=== PATIENT | female | born 1960 | race African-American/Black ===

== ENCOUNTER → 2018-09-06 | Day surgery (SDC) | payer OTHER ==
--- OUTSIDE RECORDS SUMMARY | 2018-09-06 09:33 | XMS REPORT ---
:1960 [facility] Address [address] [place] [address] Dr. Drake [address] [place] [id number] Care Team Providers Name Role Phone Unavailable Unavailable Unavailable Problems This patient has no known problems. Allergies, Adverse Reactions, Alerts This patient has no known allergies or adverse reactions. Medications This patient has no known medications.
--- OUTSIDE RECORDS SUMMARY | 2018-09-06 09:48 | XMS REPORT ---
:1960 [facility] Address [address] [place] [address] Dr. Drake [address] [place] [id number] Care Team Providers Name Role Phone Unavailable Unavailable Unavailable Problems This patient has no known problems. Allergies, Adverse Reactions, Alerts This patient has no known allergies or adverse reactions. Medications This patient has no known medications.
--- NOTE | 2018-09-06 11:20 | RAD REPORT ---
EXAM DESCRIPTION: US - BREAST/AXILLA, LIMITED - 09/06/2018 10:32 am CLINICAL HISTORY: N63.21 COMPARISON: BREAST UNI MARNIE dated 04/10/2012; MAMMO DIGITAL UNILATERAL /FU dated 04/10/2012; MAMMO DIGI LEE SCR BILAT W CAD dated 03/21/2012 Outside [facility] mammograms were reviewed. FINDINGS: The patient was initially referred for ultrasound-guided core biopsy of an outside detecte d 4 mm upper-outer quadrant left breast lesion. Despite prolonged sonography, no correlate suspicious lesion could be found. Thus, ultrasound-guided core biopsy could not be performed at this time. Mild ductal ectasia was noted in the upper-outer adrienne drant of the left breast. IMPRESSION: No sonographic suspicious correlate lesion could be detected in the upper-outer quadrant left breast at this time. Mild ductal ectasia was noted in the upper outer left breast. Because of t hese sonography findings, ultrasound-guided core biopsy was deferred. This was explained to the patie nt in detail. Annual bilateral screening mammography is recommended. BI-RAD: 2 ResultCode: B Category Diagnosis 0 = Incomplete: Needs Additional Imaging Evaluation, 1 = Negative, 2 = Benign, 3 = Probably Benign, 4 = Suspicious Abnormality, 5 = Highly Suspicious of Malignancy, 6 = Known Biop sy Proven Malignancy.
== END | disposition home or self-care (01) ==
LOC: DS 09:30
PROVIDERS: ATTEND Surgery
DX: N63.21 Unspecified lump in the left breast, upper outer quadrant (principal); Z53.8 Procedure and treatment not carried out for other reasons
CPT/HCPCS: 76642

== ENCOUNTER 2021-12-25 13:24 | Emergency (ER) | payer OTHER ==
--- OUTSIDE RECORDS SUMMARY | 2021-12-25 13:36 | XMS REPORT | Continuity of Care Document ---
:1960 Author Organization [facility] t Address [address] [place] [address] Dr. Alfonso. [address] [place] [address] Care Team Providers Name Role Phone ryanjessy Primary Care Physician Rashad BOTELLO Attending Clinician Unavailable Rashad Botello DO Attending Clinician Doctor Unassigned, Name Attending Clinician Unavailable Ke CALLES Attending Clinician Unavailable Saeid AREC Attending Clinician Unavailable Tasneem Pelaez MD Attending Clinician Nathaniel Doan MD, J Attending Clinician Rashard Cosby MD Attending Clinician Soniya Jean MD Attending Clinician Saeid Arce MD Attending Clinician Favian Ruelas MD Attending Clinician Pako PUENTE Attending Clinician Juan Antonio PUENTE Attending Clinician Radiology Attending Clinician Unavailable Rashad BOTELLO Admitting Clinician Unavailable José ARMSTRONG JR Admitting Clinician Unavailable Alea PUENTE, Rashard Admitting Clinician Payers Payer Name Policy Type Policy Number Effective Date Expiration Date Tasneem CUELLAR/[facility] DUAL [id number] 2021 00:00:00 COMP HMO D SNP [facility] [place] STAR [id number] 2019 00:00:00 PLUS Problems Condition Condition Condition Status Onset Resolution Last Treating Co mments Source Name Details Category Date Date Treatment Clinician Date Rectal Rectal Disease Active Univers bleed bleed 3-12 ity of 00:00: [address] Otalgia Otalgia Disease Active 2014-08 Univers 2-21 ity of 00:00: [address] 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 rs rhinitis rhinitis 2-21 ity of 00:00: [address] Essential Essential Disease Active 2014-08 Uni vers hypertensi hypertensi 2-21 it y of on on 00:00: [address] Hyperlipid Hyperlipid Disease Active 2014-08 U nivers emia emia 2-21 ity of 00:00: [address] Osteoarthr Osteoarthr Disease Active 2014-08 U nivers itis itis 2- ity of 00:00: [address] Chronic Chronic Disease Active 2014-08 Univers kidney kidney 2- ity of disease disease 00:00: [address] Allergies, Adverse Reactions, Alerts Allergy Allergy Status Severity Reaction(s) Onset Inactive Treating Comm ents Source Name Type Date Date Clinician NO KNOWN Drug Active Univers ALLERGIE Class ity of S [facility] [place] [facility] Family History Family Member Diagnosis Comments Start Date Stop Date Source Natural father Cancer [facility] Natural father Diabetes [facility] Natural father Heart [facility] Natural mother Cancer [facility] Natural mother Diabetes [facility] Natural mother Heart [facility] Social History Social Habit Start Date Stop Date Quantity Comments Source Exposure to Not sure [facility] SARS-CoV-2 [facility] (event) [place] Alcohol intake 2021-11-10 2021-11-10 .43 /d University of 00:00:00 00:00:00 [facility] [place] [facility] Tobacco Comment 2015-08-17 2015-08-17 3 cans per week Univ ersity of 00:00:00 00:00:00 [facility] [place] [facility] Tobacco use and 2015-05-08 2015-05-08 Never used Universit y of exposure 00:00:00 00:00:00 [facility] [place] [facility] Sex [birth year] Universit y of 00:00:00 00:00:00 [facility] [place] [facility] Smoking Status Start Date Stop Date Source Never smoker [facility] Medications Ordered Filled Start Stop Current Ordering Indication Dosage Frequency Signature Comments Components Source Medication Medication Date Date Medication? Clinician (SIG) Name Name sennosides 2021-0 Yes 8.6mg 8.6 mg, Uni vers (SENOKOT) - Oral, ity of tablet 8.6 14:00: DAILY, [place] mg 00 First dose Medical on Mon11/16/21 at 0900, Until Discontinu ed, Routine sennosides 2021-0 Yes 8.6mg 8.6 mg, Uni vers (SENOKOT) 11-16 Oral, ity of tablet 8.6 14:00: DAILY, [place] mg 00 First dose Medical on Mon11/16/21 at 0900, Until Discontinu ed, Routine polyethylen 2021-0 Yes 17g 17 g, Unive rs e glycol 3-21 Oral, BID, ity o f 3350 powder 14:15: First dose [place] 17 g 00 (after Medical last Branch modificati on) on Mon11/15/21 at 0915, Until Discontinu ed, Routine polyethylen 2021-0 Yes 17g 17 g, Unive rs e glycol 3-21 Oral, BID, ity o f 3350 powder 14:15: First dose [place] 17 g 00 (after Medical last Branch modificati on) on Mon11/15/21 at 0915, Until Discontinu ed, Routine NaCl 0.9% 2021-0 Yes 1000mL at 100 Univ ers (NS) IV 3-20 mL/hr, IV ity of infusion 19:00: Infusion, [place] 1,000 mL 00 CONTINUOUS Medic al , Starting Branch on Mon11/14/21 at 1400, Until Discontinu ed, Routine NaCl 0.9% 2021-0 Yes 1000mL at 100 Univ ers (NS) IV 3-20 mL/hr, IV ity of infusion 19:00: Infusion, [place] 1[place]000 mL 00 CONTINUOUS Medic al , Starting Branch on Mon11/14/21 at 1400, Until Discontinu ed, Routine iopamidol 2021- No [id number] 100mL 100 mL, Univers (ISOVUE 11-12-18 Intravenou ity o f 370-500 mL) 19:00: 17:37 s, ONCE, 1 [place] injection 00 :00 dose, On Medica l 100 mL Fri Branch 11/12/21 at 1400, Routine iopamidol 2021- No [id number] 100mL 100 mL, Univers (ISOVUE 11-12 Intravenou ity o f 370-500 mL) 19:00: 17:37 s, ONCE, 1 [place] injection 00 :00 dose, On Medica l 100 mL Fri Branch 11/12/21 at 1400, Routine NaCl 0.9% 2021- No 1000mL at 200 Uni vers (NS) IV 11-12 03-20 mL/hr, IV ity of infusion 17:45: 18:50 Infusion, [place] 1,000 mL 00 :33 CONTINUOUS Medic al , Starting Branch on Mon11/12/21 at 1245, Until Mon11/14/21 at 1350, Routine NaCl 0.9% 2021- No 1000mL at 200 Uni vers (NS) IV 11-12 03-20 mL/hr, IV ity of infusion 17:45: 18:50 Infusion, [place] 1,000 mL 00 :33 CONTINUOUS Medic al , Starting Branch on Mon11/12/21 at 1245, Until [place] 11/14/21 at 1350, Routine FENTanyl PF 2021- No Slow IV Un bogdan (SUBLIMAZE 11-12 Push, PRN, it y of (PF)) 05:00: 05:54 Starting [place] injection 18 :24 on [facility] 11/12/21 at Branch 0000, Until Mon11/12/21 at 0054, Routine FENTanyl PF 2021- No Slow IV Un bogdan (SUBLIMAZE 11-1218 Push, PRN, it y of (PF)) 05:00: 05:54 Starting [place] injection 18 :24 on [facility] 11/12/21 at Branch 0000, Until Mon11/12/21 at 0054, Routine midazolam 2021- No IV Push, Uni vers (VERSED) 11-12 PRN, ity of injection 04:56: 05:54 Starting [place] 40 :20 on [facility] 11/11/21 at Branch 2356, Until Mon11/12/21 at 0054, Routine midazolam 2021-2021- No IV Push, Uni vers (VERSED) 11-12 PRN, ity of injection 04:56: 05:54 Starting [place] 40 :20 on [facility] 11/11/21 at Branch 2356, Until 11/12/21 at 0054, Routine sodium 2021- No Slow IV Univers bicarbonate 11-12 Push, PRN, i ty of 8.4 % (1 04:50: 04:50 [place] mEq/mL) 45 :45 on [facility] injection 11/11/21 at [facility] 2350, Until [place] 11/11/21 at 2350, Routine sodium 2021- No Slow IV Univers bicarbonate 11-12 Push, PRN, i ty of 8.4 % (1 04:50: 04:50 [place] mEq/mL) 45 :45 on [facility] injection 11/11/21 at [facility] 2350, Until [place] 11/11/21 at 2350, Routine lidocaine 2021- No PRN, Univers 2% 11-12 Starting ity of (XYLOCAINE) 04:50: 04:50 on [facility] [place] 20 mg/mL (2 34 :34 11/11/[address] %) 2349, Branch injection Until [place] 11/11/21 at 2350, Routine lidocaine 2021- No PRN, Univers 2% 11-12 Starting ity of (XYLOCAINE) 04:50: 04:50 on [place] 20 mg/mL (2 34 :34 11/11/[address]ical %) 2349, Branch injection Until [place] 11/11/21 at 2350, Routine iopamidol 2021- No [id number] 120mL 120 mL, Univers (ISOVUE 11-12 Intravenou ity o f 370-500 mL) 01:15: 23:56 s, ONCE, 1 [place] injection 00 :00 dose, On Medica l 120 mL [facility] Branch 11/11/21 at 2015, Routine iopamidol 2021- No [id number] 120mL 120 mL, Univers (ISOVUE 11-12- Intravenou ity o f 370-500 mL) 01:15: 23:56 s, ONCE, 1 [place] injection 00 :00 dose, On Medica l 120 mL [place] Branch 11/11/21 at 2015, Routine simethicone 2021- No PRN, Unive rs (GAS RELIEF 11-08 Starting ity of (SIMETHICON 19:42: 21:21 on Mon [place] E)) 40 00 :26 11/08/21 at Medical mg/0.6 mL 1442, Branch drops Until Mon11/08/21 at 1621, Routine, Intra-op lactated 2021- No 1000mL at 999 Univ ers ringers IV 11-08 mL/hr, ity of infusion 16:15: 15:18 1,000 mL, [place] 1,000 mL 00 :00 Intravenou Medic al s, ONCE, 1 Branch dose, On Mon11/08/21 at 1115, Routine lactated 2021- No 1000mL at 999 Univ ers ringers IV 11-08 mL/hr, ity of infusion 16:15: 15:18 1,000 mL, [place] 1,000 mL 00 :00 Intravenou Medic al s, ONCE, 1 Branch dose, On Mon11/08/21 at 1115, Routine NaCl 0.9% 2021- No 1000mL at 50 Univ ers (NS) IV 11-08 mL/hr, IV ity of infusion 11:15: 13:48 Infusion, [place] 1,000 mL 00 :47 CONTINUOUS Medic al , Starting Branch on Mon11/08/21 at 0615, Until Mon11/08/21 at 0848, Routine magnesium No 2g 2 g, IV Univ ers sulfate in 11-08 Piggyback, it y of water 2 11:15: 12:01 Administer [place] gram/50 mL 00 :00 over 60 Medica l (4 %) Minutes, Branch infusion 2 ONCE, 1 g dose, On Mon11/08/21 at 0615, Routine NaCl 0.9% 2021- No 1000mL at 50 Univ ers (NS) IV 11-08 mL/hr, IV ity of infusion 11:15: 13:48 Infusion, [place] 1,000 mL 00 :47 CONTINUOUS Medic al , Starting Branch on Mon11/08/21 at 0615, Until Mon11/08/21 at 0848, Routine magnesium 2021- No 2g 2 g, IV Univ ers sulfate in 11-08 Piggyback, it y of water 2 11:15: 12:01 Administer [place] gram/50 mL 00 :00 over 60 Medica l (4 %) Minutes, Branch infusion 2 ONCE, 1 g dose, On Mon11/08/21 at 0615, Routine peg-electro 2021- No 4000mL 4,000 mL, Univers lyte soln 11-0715 Oral, PRN ity of (GOLYTELY) 20:01: 13:42 - SEE [place] [id number] 36 :05 INSTRUCTIO Me dical .74 -5.86 NS, Branch gram Starting solution on Sun 4,000 mL 11/07/21 at 1501, Until Mon11/09/21 at 0842, Routine, Bowel Prep, colonoscop y peg-electro 2021- No 4000mL 4,000 mL, Univers lyte soln 11-07 Oral, PRN ity of (GOLYTELY) 20:01: 13:42 - SEE [place] [id number] 36 :05 INSTRUCTIO Me dical .74 -5.86 NS, Branch gram Starting solution on Sun 4,000 mL 11/07/21 at 1501, Until Mon11/09/21 at 0842, Routine, Bowel Prep, colonoscop y pantoprazol Yes 40mg 40 mg, Univ ers e 3-13 Oral, ity of (PROTONIX) 14:00: DAILY, [place] EC tablet 00 First dose Medi surekha 40 mg on Sun [place] 11/07/21 at 0900, Until Discontinu ed, Routine pantoprazol 2021-0 Yes 40mg 40 mg, Univ ers e 3-13 Oral, ity of (PROTONIX) 14:00: DAILY, [place] EC tablet 00 First dose Medi surekha 40 mg on Sun [place] 11/07/21 at 0900, Until Discontinu ed, Routine pantoprazol 2021-0 Yes 40mg 40 mg, Univ ers e 3-13 Oral, ity of (PROTONIX) 14:00: DAILY, [place] EC tablet 00 First dose Medi surekha 40 mg on Sun [place] 11/07/21 at 0900, Until Discontinu ed, Routine melatonin 2021-0 Yes 3mg 3 mg, Univers (MELATIN) 3-13 Oral, QHS, ity of tablet 3 mg 03:00: First dose on [facility] 11/06/21 at Branch 2100, Until Discontinu ed, Routine melatonin 2021-0 Yes 3mg 3 mg, Univers (MELATIN) 3-13 Oral, QHS, ity of tablet 3 mg 03:00: First dose on [facility] 11/06/21 at Branch 2100, Until Discontinu ed, Routine melatonin 2021-0 Yes 3mg 3 mg, Univers (MELATIN) 3-13 Oral, QHS, ity of tablet 3 mg 03:00: First dose on [facility] 11/06/21 at Branch 2100, Until Discontinu ed, Routine NaCl 0.9% 0 2021- No 1000mL at 100 Uni vers (NS) IV 11-06 03-14 mL/hr, IV ity of infusion 21:30: 11:03 Infusion, [place] 1,000 mL 00 :39 CONTINUOUS Medic al , Starting Branch on [facility] 11/06/21 at 1530, Until Mon11/08/21 at 0603, Routine NaCl 0.9% 2021- No 1000mL at 100 Uni vers (NS) IV 11-06 03-14 mL/hr, IV ity of infusion 21:30: 11:03 Infusion, [place] 1,000 mL 00 :39 CONTINUOUS Medic al , Starting Branch on [facility] 11/06/21 at 1530, Until Mon11/08/21 at 0603, Routine iopamidol 2021-0 2021- No [id number] 100mL 100 mL, Univers (ISOVUE 11-06 4102 Intravenou ity o f 370-500 mL) 15:15: 14:04 s, ONCE, 1 [place] injection 00 :00 dose, On Medica l 100 mL [facility] Branch 11/06/21 at 0915, Routine iopamidol 2021-0 2021- No [id number] 100mL 100 mL, Univers (ISOVUE 11-06 4102 Intravenou ity o f 370-500 mL) 15:15: 14:04 s, ONCE, 1 [place] injection 00 :00 dose, On Medica l 100 mL [facility] Branch 11/06/21 at 0915, Routine pravastatin 2022-0 Yes 40mg 40 mg, Univ ers (PRAVACHOL) 3-12 Oral, ity of tablet 40 15:00: DAILY, [place] mg 00 First dose Medical on [facility] Branch 11/06/21 at 0900, Until Discontinu ed, Routine citalopram Yes 20mg 20 mg, Unive rs (CELEXA) 3-12 Oral, ity of tablet 20 15:00: DAILY, [place] mg 00 First dose Medical on [facility] Branch 11/06/21 at 0900, Until Discontinu ed, Routine pravastatin Yes 40mg 40 mg, Univ ers (PRAVACHOL) 3-12 Oral, ity of tablet 40 15:00: DAILY, [place] mg 00 First dose Medical on [facility] Branch 11/06/21 at 0900, Until Discontinu ed, Routine citalopram Yes 20mg 20 mg, Unive rs (CELEXA) 3-12 Oral, ity of tablet 20 15:00: DAILY, [place] mg 00 First dose Medical on [facility] Branch 11/06/21 at 0900, Until Discontinu ed, Routine pravastatin Yes 40mg 40 mg, Univ ers (PRAVACHOL) 3-12 Oral, ity of tablet 40 15:00: DAILY, [place] mg 00 First dose Medical on [facility] Branch 11/06/21 at 0900, Until Discontinu ed, Routine citalopram Yes 20mg 20 mg, Unive rs (CELEXA) 3-12 Oral, ity of tablet 20 15:00: DAILY, [place] mg 00 First dose Medical on [facility] Branch 11/06/21 at 0900, Until Discontinu ed, Routine Sliding Yes Subcutaneo Univ ers Scale 3-12 us, TID ity of Insulin - 14:00: MEALS+HS, [place] Lispro 00 First dose Medical (HumaLOG) + on [facility] Branch Fsbg 11/06/21 at Testing 0800, Until Discontinu ed, Routine Sliding Yes Subcutaneo Univ ers Scale 3-12 us, TID ity of Insulin - 14:00: MEALS+HS, [place] Lispro 00 First dose Medical (HumaLOG) + on [facility] Branch Fsbg 11/06/21 at Testing 0800, Until Discontinu ed, Routine Sliding Yes Subcutaneo Univ ers Scale 3-12 us, TID ity of Insulin - 14:00: MEALS+HS, [place] Lispro 00 First dose Medical (HumaLOG) + on Sat Branch Fsbg 11/06/21 at Testing 0800, Until Discontinu ed, Routine pantoprazol 2021- No 40mg 40 mg, Uni vers e 11-06 Slow IV ity of (PROTONIX) 14:00: 05:45 Push, [place] injection 00 :58 Q12H, Medical 40 mg First dose Branch on 11/06/21 at 0800, Until Discontinu ed pantoprazol 2021- No 40mg 40 mg, Uni vers e 11-06 Slow IV ity of (PROTONIX) 14:00: 05:45 Push, [place] injection 00 :58 Q12H, Medical 40 mg First dose Branch on 11/06/21 at 0800, Until Discontinu ed ondansetron Yes 4mg 4 mg, Slow Univers (ZOFRAN 3-12 IV Push, ity of (PF)) 12:13: Q6HPRN, [place] injection 4 03 Nausea and Me dical mg Vomiting Branch (N/V), Starting on 11/06/21 at 0613
Do ses of ondansetro n 16 mg and above need to be administer ed via IV piggyback. For Dose >=24mg ECG monitoring is advisable.
ondansetron 0 Yes 4mg 4 mg, Slow Univers (ZOFRAN 3-12 IV Push, ity of (PF)) 12:13: Q6HPRN, [place] injection 4 03 Nausea and Me dical mg Vomiting Branch (N/V), Starting on 11/06/21 at 0613
Do ses of ondansetro n 16 mg and above need to be administer ed via IV piggyback. For Dose >=24mg ECG monitoring is advisable.
ondansetron 2021-0 Yes 4mg 4 mg, Slow Univers (ZOFRAN 3-12 IV Push, ity of (PF)) 12:13: Q6HPRN, [place] injection 4 03 Nausea and Me dical mg Vomiting Branch (N/V), Starting on 11/06/21 at 0613
Do ses of ondansetro n 16 mg and above need to be administer ed via IV piggyback. For Dose >=24mg ECG monitoring is advisable.
glucagon 2022-0 Yes 1mg 1 mg, Univers (GLUCAGEN 3-12 Intravenou ity of DIAGNOSTIC 12:12: s, PRN - [place] KIT) 25 SEE Medical injection 1 INSTRUCTIO Br anch mg NS, Starting on 11/06/21 at 0612, Until Discontinu ed, Routine, hypoglycem ia glucagon 2022-0 Yes 1mg 1 mg, Univers (GLUCAGEN 3-12 Intravenou ity of DIAGNOSTIC 12:12: s, PRN - [place] KIT) 25 SEE Medical injection 1 INSTRUCTIO Br anch mg NS, Starting on 11/06/21 at 0612, Until Discontinu ed, Routine, hypoglycem ia glucagon 2022-0 Yes 1mg 1 mg, Univers (GLUCAGEN 3-12 Intravenou ity of DIAGNOSTIC 12:12: s, PRN - [place] KIT) 25 SEE Medical injection 1 INSTRUCTIO Br anch mg NS, Starting on 11/06/21 at 0612, Until Discontinu ed, Routine, hypoglycem ia glucagon 2022-0 Yes 1mg 1 mg, Univers (GLUCAGEN 3-12 Intramuscu ity of DIAGNOSTIC 12:12: [place], [place]N, [place] KIT) 14 Starting Medical injection 1 on Sat Branch mg 11/06/21 at 0612, Until Discontinu ed, [place], Blood Glucose < or = 70 mg/dL and patient is unable to swallow or has mental changes. glucagon 2022-0 Yes 1mg 1 mg, Univers (GLUCAGEN 3-12 Intramuscu ity of DIAGNOSTIC 12:12: [place], PRN, [place] KIT) 14 Starting Medical injection 1 on Sat Branch mg 11/06/21 at 0612, Until Discontinu ed, [place], Blood Glucose < or = 70 mg/dL and patient is unable to swallow or has mental changes. glucagon 2022-0 Yes 1mg 1 mg, Univers (GLUCAGEN 3-12 Intramuscu ity of DIAGNOSTIC 12:12: [place], PRN, [place] KIT) 14 Starting Medical injection 1 on Sat Branch mg 11/06/21 at 0612, Until Discontinu ed, [place], Blood Glucose < or = 70 mg/dL and patient is unable to swallow or has mental changes. ondansetron 2019-0 Yes [id number] 4mg Take 1 Univers (ZOFRAN 6-04 tablet by ity of ODT) 4 mg 00:00: mouth [place] disintegrat 00 every 8 Medic al ing tablet (eight) Branch hours as needed for Nausea and Vomiting (N/V). ondansetron 2019-0 Yes [id number] 4mg Take 1 Univers (ZOFRAN 6-04 tablet by ity of ODT) 4 mg 00:00: mouth [place] disintegrat 00 every 8 Medic al ing tablet (eight) Branch hours as needed for Nausea and Vomiting (N/V). ondansetron 2019-0 Yes [id number] 4mg Take 1 Univers (ZOFRAN 6-04 tablet by ity of ODT) 4 mg 00:00: mouth [place] disintegrat 00 every 8 Medic al ing tablet (eight) Branch hours as needed for Nausea and Vomiting (N/V). ondansetron 2019-0 Yes [id number] 4mg Take 1 Univers (ZOFRAN 6-04 tablet by ity of ODT) 4 mg 00:00: mouth [place] disintegrat 00 every 8 Medic al ing tablet (eight) Branch hours as needed for Nausea and Vomiting (N/V). ondansetron 2019-0 Yes [id number] 4mg Take 1 Univers (ZOFRAN 6-04 tablet by ity of ODT) 4 mg 00:00: mouth [place] disintegrat 00 every 8 Medic al ing tablet (eight) Branch hours as needed for Nausea and Vomiting (N/V). ondansetron 2019-0 Yes [id number] 4mg Take 1 Univers (ZOFRAN 6-04 tablet by ity of ODT) 4 mg 00:00: mouth [place] disintegrat 00 every 8 Medic al ing tablet (eight) Branch hours as needed for Nausea and Vomiting (N/V). ondansetron 2019-0 Yes [id number] 4mg Take 1 Univers (ZOFRAN 6-04 tablet by ity of ODT) 4 mg 00:00: mouth [place] disintegrat 00 every 8 Medic al ing tablet (eight) Branch hours as needed for Nausea and Vomiting (N/V). ondansetron 2019-0 Yes Nausea and 4mg Take 1 Univers (ZOFRAN 6-04 vomiting, tablet by it y of ODT) 4 mg 00:00: intractabil mouth [place] disintegrat 00 ity of every 8 Med ical ing tablet vomiting (eight) Br anch not hours as specified, needed for unspecified Nausea and vomiting Vomiting type (N/V). ondansetron Yes Nausea and 4mg Take 1 Univers (ZOFRAN 6-04 vomiting, tablet by it y of ODT) 4 mg 00:00: intractabil mouth [place] disintegrat 00 ity of every 8 Med ical ing tablet vomiting (eight) Br anch not hours as specified, needed for unspecified Nausea and vomiting Vomiting type (N/V). PRAVASTATIN Yes TAKE 1 Univ ers 40 mg 5-02 TABLET BY ity of tablet 00:00: MOUTH ONCE DAILY Medical Branch PRAVASTATIN Yes TAKE 1 Univ ers 40 mg 5-02 TABLET BY ity of tablet 00:00: MOUTH ONCE DAILY Medical Branch PRAVASTATIN Yes TAKE 1 Univ ers 40 mg 5-02 TABLET BY ity of tablet 00:00: MOUTH ONCE DAILY Medical Branch PRAVASTATIN Yes TAKE 1 Univ ers 40 mg 5-02 TABLET BY ity of tablet 00:00: MOUTH ONCE DAILY Medical Branch PRAVASTATIN Yes TAKE 1 Univ ers 40 mg 5-02 TABLET BY ity of tablet 00:00: MOUTH ONCE DAILY Medical Branch PRAVASTATIN Yes TAKE 1 Univ ers 40 mg 5-02 TABLET BY ity of tablet 00:00: MOUTH ONCE DAILY Medical Branch PRAVASTATIN Yes TAKE 1 Univ ers 40 mg 5-02 TABLET BY ity of tablet 00:00: MOUTH ONCE DAILY Medical Branch PRAVASTATIN Yes TAKE 1 Univ ers 40 mg 5-02 TABLET BY ity of tablet 00:00: MOUTH ONCE DAILY Medical Branch PRAVASTATIN Yes TAKE 1 Univ ers 40 mg 5-02 TABLET BY ity of tablet 00:00: MOUTH ONCE DAILY Medical Branch triamterene Yes 1{tbl} Take 1 Un bogdan -hydrochlor 4-02 tablet by ity of othiazid 00:00: mouth [place] 37.5-25 mg 00 daily. Medical tablet Branch traMADOL 50 2018-0 Yes 50mg Take 1 Univ ers mg tablet 4-02 tablet by ity o f 00:00: mouth [place] 00 every 6 Medical (six) Branch hours as needed (pain). metformin 2018-0 Yes 500mg Take 1 Unive rs ER 500 mg 4-02 tablet by ity o f 24 hr 00:00: mouth [place] tablet 00 daily. Medical Branch citalopram 2018-0 Yes 20mg Take 1 Unive rs 20 mg 4-02 tablet by ity of tablet 00:00: mouth [place] 00 daily. Medical Branch triamterene 2018-0 Yes 1{tbl} Take 1 Un bogdan -hydrochlor 4-02 tablet by ity of othiazid 00:00: mouth [place] 37.5-25 mg 00 daily. Medical tablet Branch traMADOL 50 2018-0 Yes 50mg Take 1 Univ ers mg tablet 4-02 tablet by ity o f 00:00: mouth [place] 00 every 6 Medical (six) Branch hours as needed (pain). metformin 2018-0 Yes 500mg Take 1 Unive rs ER 500 mg 4-02 tablet by ity o f 24 hr 00:00: mouth [place] tablet 00 daily. Medical Branch citalopram 2018-0 Yes 20mg Take 1 Unive rs 20 mg 4-02 tablet by ity of tablet 00:00: mouth [place] 00 daily. Medical Branch traMADOL 50 2018-0 Yes 50mg Take 1 Univ ers mg tablet 4-02 tablet by ity o f 00:00: mouth [place] 00 every 6 Medical (six) Branch hours as needed (pain). metformin 2018-0 Yes 500mg Take 1 Unive rs ER 500 mg 4-02 tablet by ity o f 24 hr 00:00: mouth [place] tablet 00 daily. Medical Branch citalopram 2018-0 Yes 20mg Take 1 Unive rs 20 mg 4-02 tablet by ity of tablet 00:00: mouth [place] 00 daily. Medical Branch traMADOL 50 2018-0 Yes 50mg Take 1 Univ ers mg tablet 4-02 tablet by ity o f 00:00: mouth [place] 00 every 6 Medical (six) Branch hours as needed (pain). metformin 2018-0 Yes 500mg Take 1 Unive rs ER 500 mg 4-02 tablet by ity o f 24 hr 00:00: mouth [place] tablet 00 daily. Medical Branch citalopram 2018-0 Yes 20mg Take 1 Unive rs 20 mg 4-02 tablet by ity of tablet 00:00: mouth [place] 00 daily. Medical Branch triamterene 2018-0 Yes 1{tbl} Take 1 Un bogdan -hydrochlor 4-02 tablet by ity of othiazid 00:00: mouth [place] 37.5-25 mg 00 daily. Medical tablet Branch traMADOL 50 2018-0 Yes 50mg Take 1 Univ ers mg tablet 4-02 tablet by ity o f 00:00: mouth [place] 00 every 6 Medical (six) Branch hours as needed (pain). metformin 2018-0 Yes 500mg Take 1 Unive rs ER 500 mg 4-02 tablet by ity o f 24 hr 00:00: mouth [place] tablet 00 daily. Medical Branch citalopram 2018-0 Yes 20mg Take 1 Unive rs 20 mg 4-02 tablet by ity of tablet 00:00: mouth [place] 00 daily. Medical Branch triamterene 2018-0 Yes 1{tbl} Take 1 Un bogdan -hydrochlor 4-02 tablet by ity of othiazid 00:00: mouth [place] 37.5-25 mg 00 daily. Medical tablet Branch traMADOL 50 2018-0 Yes 50mg Take 1 Univ ers mg tablet 4-02 tablet by ity o f 00:00: mouth [place] 00 every 6 Medical (six) Branch hours as needed (pain). metformin 2018-0 Yes 500mg Take 1 Unive rs ER 500 mg 4-02 tablet by ity o f 24 hr 00:00: mouth [place] tablet 00 daily. Medical Branch citalopram 2018-0 Yes 20mg Take 1 Unive rs 20 mg 4-02 tablet by ity of tablet 00:00: mouth [place] 00 daily. Medical Branch traMADOL 50 2018-0 Yes 50mg Take 1 Univ ers mg tablet 4-02 tablet by ity o f 00:00: mouth [place] 00 every 6 Medical (six) Branch hours as needed (pain). metformin 2018-0 Yes 500mg Take 1 Unive rs ER 500 mg 4-02 tablet by ity o f 24 hr 00:00: mouth [place] tablet 00 daily. Medical Branch citalopram 2018-0 Yes 20mg Take 1 Unive rs 20 mg 4-02 tablet by ity of tablet 00:00: mouth [place] 00 daily. Medical Branch traMADOL 50 2018-0 Yes 50mg Take 1 Univ ers mg tablet 4-02 tablet by ity o f 00:00: mouth [place] 00 every 6 Medical (six) Branch hours as needed (pain). metformin Yes 500mg Take 1 Unive rs ER 500 mg 4-02 tablet by ity o f 24 hr 00:00: mouth [place] tablet 00 daily. Medical Branch citalopram Yes 20mg Take 1 Unive rs 20 mg 4-02 tablet by ity of tablet 00:00: mouth [place] 00 daily. Medical Branch traMADOL 50 Yes 50mg Take 1 Univ ers mg tablet 4-02 tablet by ity o f 00:00: mouth [place] 00 every 6 Medical (six) Branch hours as needed (pain). metformin Yes 500mg Take 1 Unive rs ER 500 mg 4-02 tablet by ity o f 24 hr 00:00: mouth [place] tablet 00 daily. Medical Branch citalopram Yes 20mg Take 1 Unive rs 20 mg 4-02 tablet by ity of tablet 00:00: mouth [place] 00 daily. Medical Branch triamterene 2021- No 1{tbl} Take 1 U nivers -hydrochlor 4-02 03-21 tablet by it y of othiazid 00:00: 00:00 mouth [place] 37.5-25 mg 00 :00 daily. Medical tablet Branch triamterene 2021- No 1{tbl} Take 1 U nivers -hydrochlor 4-02 03-21 tablet by it y of othiazid 00:00: 00:00 mouth [place] 37.5-25 mg 00 :00 daily. Medical tablet Branch sulfamethox Yes 1{tbl} Take 1 Tab Univers azole-trime 9-11 by mouth ity of thoprim 00:00: every 12 [place] (BACTRIM 00 (twelve) Medical DS) 800-160 hours. Branch mg tablet sulfamethox Yes 1{tbl} Take 1 Tab Univers azole-trime 9-11 by mouth ity of thoprim 00:00: every 12 [place] (BACTRIM 00 (twelve) Medical DS) 800-160 hours. Branch mg tablet sulfamethox Yes 1{tbl} Take 1 Tab Univers azole-trime 9-11 by mouth ity of thoprim 00:00: every 12 [place] (BACTRIM 00 (twelve) Medical DS) 800-160 hours. Branch mg tablet sulfamethox Yes 1{tbl} Take 1 Tab Univers azole-trime -11 by mouth ity of thoprim 00:00: every 12 [place] (BACTRIM 00 (twelve) Medical DS) 800-160 hours. Branch mg tablet sulfamethox 2021- No 1{tbl} Take 1 Tab Univers azole-trime -06 30- by mouth ity of thoprim 00:00: 00:00 every 12 [place] (BACTRIM 00 :00 (twelve) Medical DS) 800-160 hours. Branch mg tablet sulfamethox 2021- No 1{tbl} Take 1 Tab Univers azole-trime -11-15 by mouth ity of thoprim 00:00: 00:00 every 12 [place] (BACTRIM 00 :00 (twelve) Medical DS) 800-160 hours. Branch mg tablet Immunizations Ordered Filled Immunization Date Status Comments [facility] e Immunization Name Name Influenza Virus 2021-06-28 Completed Universit y of Vaccine 00:00:00 [facility] [place] [facility] Influenza Virus 2021-06-28 Completed Universit y of Vaccine 00:00:00 [facility] [place] [facility] Influenza Virus 2021-06-28 Completed Universit y of Vaccine 00:00:00 [facility] [place] [facility] Influenza Virus 2021-06-28 Completed Universit y of Vaccine 00:00:00 [facility] [place] [facility] Influenza Virus 2021-06-28 Completed Universit y of Vaccine 00:00:00 [facility] [place] [facility] Influenza Virus 2021-06-28 Completed Universit y of Vaccine 00:00:00 [facility] [place] [facility] Influenza Virus 2021-06-28 Completed Universit y of Vaccine 00:00:00 [facility] [place] [facility] SARS-COV-2 COVID-19 2020 Completed Unive rsity of RICHAR/J&J VACCINE 00:00:00 [facility] [place] [facility] SARS-COV-2 COVID-19 2020 Completed Unive rsity of RICHAR/J&J VACCINE 00:00:00 [facility] [place] [facility] SARS-COV-2 COVID-19 2020 Completed Unive rsity of RICHAR/J&J VACCINE 00:00:00 [facility] [place] [facility] SARS-COV-2 COVID-19 2020 Completed Unive rsity of RICHAR/J&J VACCINE 00:00:00 [facility] [place] [facility] SARS-COV-2 COVID-19 2020 Completed Unive rsity of RICHAR/J&J VACCINE 00:00:00 [facility] [place] [facility] SARS-COV-2 COVID-19 2020 Completed Unive rsity of RICHAR/J&J VACCINE 00:00:00 [facility] [place] [facility] SARS-COV-2 COVID-19 2020 Completed Unive rsity of RICHAR/J&J VACCINE 00:00:00 [facility] [place] [facility] Vital Signs Vital Name Observation Time Observation Value Comments Source Systolic blood 2021-11-15 20:19:00 114 mm[Hg] Univer sity of pressure [facility] [place] [facility] Diastolic blood 2021-11-15 20:19:00 72 mm[Hg] Unive rsity of pressure [facility] [place] [facility] Heart rate 2021-11-15 20:19:00 63 /min [facility] Body temperature 2021-11-15 20:19:00 36.78 [place] Univ ersity of [facility] [place] [facility] Respiratory rate 2021-11-15 20:19:00 18 /min [facility] [place] [facility] Oxygen saturation in 2021-11-15 20:19:00 99 /min [facility] blood by [facility] Pulse oximetry [place] Body height 2021-11-06 08:06:00 167.6 cm [facility] Body weight 2021-11-06 08:06:00 71.215 kg [facility] BMI 2021-11-06 08:06:00 25.34 kg/m2 [facility] Systolic blood 2021-11-08 16:30:00 118 mm[Hg] Univer sity of pressure [facility] [place] [facility] Diastolic blood 2021-11-08 16:30:00 71 mm[Hg] Unive rsity of pressure [facility] [place] [facility] Heart rate 2021-11-08 16:30:00 75 /min [facility] Body temperature 2021-11-08 16:30:00 36.61 [place] Univ ersity of [facility] [place] [facility] Respiratory rate 2021-11-08 16:30:00 18 /min [facility] [place] [facility] Oxygen saturation in 2021-11-08 16:30:00 100 /min University of Arterial blood by [facility] Pulse oximetry Branch Body height 2021-11-06 08:06:00 167.6 cm [facility] Body weight 2021-11-06 08:06:00 71.215 kg [facility] BMI 2021-11-06 08:06:00 25.34 kg/m2 [facility] Systolic blood 2021-11-13 13:23:00 103 mm[Hg] Univer sity of [facility] Diastolic blood 2021-11-13 13:23:00 67 [facility]Hg[facility] 2021-11-13 13:23:00 71 /min [facility] Body temperature 2021-11-13 13:23:00 36.44 [place] [facility] Respiratory rate 2021-11-13 13:23:00 18 /min [facility] Oxygen saturation in 2021-11-13 13:23:00 97 /min [facility] Arterial blood by [facility] Pulse oximetry Branch Body height 2021-11-06 08:06:00 167.6 cm [facility] Body weight 2021-11-06 08:06:00 71.215 kg [facility] BMI 2021-11-06 08:06:00 25.34 kg/m2 [facility] Procedures Procedure Date / Time Performing Clinician Source Performed XR TIBIA FIBULA 2 VW 2021-11-26 15:27:30 Rodríguez Botello [facility] ASSIGNMENT OF BENEFITS 2021-11-26 14:54:55 [facility] PO[facility] GLUCOSE (AUTOMATED) 2021-11-15 22:40:00 Perez Cosby [facility] POCT GLUCOSE (AUTOMATED) 2021-11-15 17:05:00 Perez Cosby [facility] POCT GLUCOSE (AUTOMATED) 2021-11-15 14:18:00 Perez Cosby [facility] MAGNESIUM 2021-11-15 06:31:00 Kerry Lees [facility] BASIC METABOLIC PANEL 2021-11-15 06:31:00 Kerry Lees [facility] (NA, K, CL, CO2, Medical Branch GLUCOSE, BUN, CREATININE, CA) CBC WITH DIFF 2021-11-15 06:31[facility] 2021-11-15 01:29:00 Perez Cosby [facility] POCT GLUCOSE (AUTOMATED) 2021-11-14 21:45:00 Perez Cosby [facility] CBC WITHOUT DIFF 2021-11-14 20:24[facility]00 [facility]) 2021-11-14 16:38:00 Perez Cosby [facility] POCT GLUCOSE (AUTOMATED) 2021-11-14 13:07:00 Perez Cosby [facility] MAGNESIUM 2021-11-14 07:46:00 [facility] PANEL 2021-11-14 07:46:00 Kerry Lees [facility] (NA, K, CL, CO2, Medical Branch GLUCOSE, BUN, CREATININE, CA) CBC WITHOUT DIFF 2021-11-14 07:46:00 [facility]OMATED) 2021-11-14 02:09:00 Perez Cosby [facility] POCT GLUCOSE (AUTOMATED) 2021-11-13 17:08:00 Perez Cosby [facility] CBC WITHOUT DIFF 2021-11-13 15:31:00 [facility]FF 2021-11-13 15:31:00 [facility] (AUTOMATED) 2021-11-13 13:21:00 Perez Cosby [facility] POCT GLUCOSE (AUTOMATED) 2021-11-13 13:21:00 Perez Cosby [facility] CBC WITHOUT DIFF 2021-11-13 10:18:00 [facility] 2021-11-13 10:18:00 [facility] BASIC METABOLIC PANEL 2021-11-13 10:18:00 [facility] (NA, K, CL, CO2, Medical Branch GLUCOSE, BUN, CREATININE, CA) MAGNESIUM 2021-11-13 10:18:00 [facility] BASIC METABOLIC PANEL 2021-11-13 10:18:00 [facility] (NA, K, CL, CO2, Medical Branch GLUCOSE, BUN, CREATININE, CA) CBC WITHOUT DIFF 2021-11-13 10:18[facility]00 [facility] 2021-11-13 02:10:00 Perez Cosby [facility] POCT GLUCOSE (AUTOMATED) 2021-11-13 02:10:00 Perez Cosby [facility] CBC WITHOUT DIFF 2021-11-13 01:04:00 [facility] CBC WITHOUT DIFF 2021-11-13 01:04:00 [facility] POCT GLUCOSE (AUTOMATED) 2021-11-12 18:58:00 Perez Cosby [facility] POCT GLUCOSE (AUTOMATED) 2021-11-12 18:58:00 Perez Cosby [facility] CT ANGIOGRAM 2021-11-12 17:46:44 Nabeel [facility] ABDOMEN/PELVIS [facility] CT ANGIOGRAM 2021-11-12 17:46:44 Nabeel [facility] ABDOMEN/PELVIS [facility] CBC WITHOUT DIFF 2021-11-12 17:07:00 [facility] CBC WITHOUT DIFF 2021-11-12 17:07:00 [facility]SE (AUTOMATED) 2021-11-12 15:50:00 Perez Cosby [facility] POCT GLUCOSE (AUTOMATED) 2021-11-12 15:50:00 Perez Cosby [facility] MAGNESIUM 2021-11-12 13:18:00 [facility] BASIC METABOLIC PANEL 2021-11-12 13:18:00 [facility] (NA, K, CL, CO2, Medical Branch GLUCOSE, BUN, CREATININE, CA) MAGNESIUM 2021-11-12 13:18:00 [facility] BASIC METABOLIC PANEL 2021-11-12 13:18:00 [facility] (NA, K, CL, CO2, Medical Branch GLUCOSE, BUN, CREATININE, CA) CBC WITH DIFF 2021-11-12 07:21:00 [facility] CBC WITH DIFF 2021-11-12 07:21:00 [facility] IR EMBOLIZATION ARTERIAL 2021-11-12 06:18:40 Ahsan Martinez [facility] OR VENOUS HEMORRHAGE OR Medical Branch LYMPHATIC EXTRAVASATION IR EMBOLIZATION ARTERIAL 2021-11-12 06:18:40 Ahsan Martinez [facility] OR VENOUS HEMORRHAGE OR Medical Branch LYMPHATIC EXTRAVASATION HB ABO GROUPING 2021-11-12 03:15:00 Santosh [facility] HB ABO GROUPING 2021-11-12 03:15:00 Santosh [facility] CBC WITHOUT DIFF 2021-11-12 02:20:00 [facility] 2021-11-12 02:20:00 [facility]SE (AUTOMATED) 2021-11-12 02:12:00 Perez Cosby [facility] POCT GLUCOSE (AUTOMATED) 2021-11-12 02:12:00 Perez Cosby [facility] CT ANGIOGRAM 2021-11-12 00:00:11 [facility] CT ANGIOGRAM 2021-11-12 00:00:11 Nabeel [facility] ABDOMEN/PELVIS [facility] CBC WITHOUT DIFF 2021-11-11 21:49:00 [facility] CBC WITHOUT DIFF 2021-11-11 21:49:00 [facility] POCT GLUCOSE (AUTOMATED) 2021-11-11 21:30:00 Perez Cosby [facility] POCT GLUCOSE (AUTOMATED) 2021-11-11 21:30:00 Perez Cosby [facility] POCT GLUCOSE (AUTOMATED) 2021-11-11 16:37:00 Perez Cosby [facility] POCT GLUCOSE (AUTOMATED) 2021-11-11 16:37:00 Perez Cosby [facility] POCT GLUCOSE (AUTOMATED) 2021-11-11 14:10:00 Perez Cosby [facility] POCT GLUCOSE (AUTOMATED) 2021-11-11 14:10:00 Perez Cosby [facility] CBC WITH DIFF 2021-11-11 10:42:00 [facility] MAGNESIUM 2021-11-11 10:42:00 [facility]OLIC PANEL 2021-11-11 10:42:00 [facility] (NA, K, CL, CO2, Medical Branch GLUCOSE, BUN, CREATININE, CA) HEPATIC FUNCTION PANEL 2021-11-11 10:42:00 [facility] ([id number]) (ALB,T.PRO,BILI Medical Branch T,BU/BC,ALT,AST,ALK PHOS) MAGNESIUM 2021-11-11 10:42:00 [facility] PANEL 2021-11-11 10:42:00 [facility] ([id number]) (ALB,T.PRO,BILI Medical Branch T,BU/BC,ALT,AST,ALK PHOS) BASIC METABOLIC PANEL 2021-11-11 10:42:00 [facility] (NA, K, CL, CO2, Medical Branch GLUCOSE, BUN, CREATININE, CA) CBC WITH DIFF 2021-11-11 10:42:00 [facility] POCT GLUCOSE (AUTOMATED) 2021-11-11 02:24:00 Perez Cosby [facility] POCT GLUCOSE (AUTOMATED) 2021-11-11 02:24:00 Perez Cosby [facility] POCT GLUCOSE (AUTOMATED) 2021-11-10 22:36:00 Perez Cosby [facility] POCT GLUCOSE (AUTOMATED) 2021-11-10 22:36:00 Perez Cosby [facility] POCT GLUCOSE (AUTOMATED) 2021-11-10 22:36:00 Perez Cosby [facility] POCT GLUCOSE (AUTOMATED) 2021-11-10 17:14:00 Perez Cosby [facility] POCT GLUCOSE (AUTOMATED) 2021-11-10 17:14:00 Perez Cosby [facility] POCT GLUCOSE (AUTOMATED) 2021-11-10 17:14:00 Perez Cosby [facility] POCT GLUCOSE (AUTOMATED) 2021-11-10 13:29:00 Perez Cosby [facility] POCT GLUCOSE (AUTOMATED) 2021-11-10 13:29:00 Perez Cosby [facility] POCT GLUCOSE (AUTOMATED) 2021-11-10 13:29:00 Perez Cosby [facility] CBC WITH DIFF 2021-11-10 09:44:00 [facility] CBC WITH DIFF 2021-11-10 09:44:00 [facility] CBC WITH DIFF 2021-11-10 09:44:00 [facility] CBC WITH DIFF 2021-11-10 04:43:00 [facility] CBC WITH DIFF 2021-11-10 04:43:00 [facility] CBC WITH DIFF 2021-11-10 04:43:00 [facility] POCT GLUCOSE (AUTOMATED) 2021-11-10 00:57:00 Perez Cosby [facility] POCT GLUCOSE (AUTOMATED) 2021-11-10 00:57:00 Perez Cosby [facility] POCT GLUCOSE (AUTOMATED) 2021-11-10 00:57:00 Perez Cosby [facility] POCT GLUCOSE (AUTOMATED) 2021-11-09 21:26:00 Perez Cosby [facility] POCT GLUCOSE (AUTOMATED) 2021-11-09 21:26:00 Perez Cosby [facility] POCT GLUCOSE (AUTOMATED) 2021-11-09 21:26:00 Perez Cosby [facility] POCT GLUCOSE (AUTOMATED) 2021-11-09 16:52:00 Perez Cosby [facility] POCT GLUCOSE (AUTOMATED) 2021-11-09 16:52:00 Perez Cosby [facility] POCT GLUCOSE (AUTOMATED) 2021-11-09 16:52:00 Perez Cosby [facility] CBC WITHOUT DIFF 2021-11-09 14:28:00 Lewis Galindo [facility] CBC WITHOUT DIFF 2021-11-09 14:28:00 Lewis Galindo [facility] CBC WITHOUT DIFF 2021-11-09 14:28:00 Lewis Galindo [facility] POCT GLUCOSE (AUTOMATED) 2021-11-09 12:08:00 Perez Cosby [facility] POCT GLUCOSE (AUTOMATED) 2021-11-09 12:08:00 Perez Cosby [facility] POCT GLUCOSE (AUTOMATED) 2021-11-09 12:08:00 Perez Cosby [facility] MAGNESIUM 2021-11-09 07:07:00 Lewis Galindo [facility] BASIC METABOLIC PANEL 2021-11-09 07:07:00 Lewis Galindo [facility] (NA, K, CL, CO2, Medical Branch GLUCOSE, BUN, CREATININE, CA) CBC WITHOUT DIFF 2021-11-09 07:07:00 Lewis Galindo [facility] CBC WITHOUT DIFF 2021-11-09 07:07:00 Lewis Galindo [facility] BASIC METABOLIC PANEL 2021-11-09 07:07:00 Lewis Galindo [facility] (NA, K, CL, CO2, Medical Branch GLUCOSE, BUN, CREATININE, CA) MAGNESIUM 2021-11-09 07:07:00 Lewis Galindo [facility] MAGNESIUM 2021-11-09 07:07:00 Lewis Galindo [facility] BASIC METABOLIC PANEL 2021-11-09 07:07:00 Lewis Galindo [facility] (NA, K, CL, CO2, Medical Branch GLUCOSE, BUN, CREATININE, CA) CBC WITHOUT DIFF 2021-11-09 07:07:00 Lewis Galindo [facility] POCT GLUCOSE (AUTOMATED) 2021-11-09 01:07:00 Perez Cosby [facility] POCT GLUCOSE (AUTOMATED) 2021-11-09 01:07:00 Perez Cosby [facility] POCT GLUCOSE (AUTOMATED) 2021-11-09 01:07:00 Perez Cosby [facility] CBC WITHOUT DIFF 2021-11-08 22:44:00 Lewis Galindo [facility] CBC WITHOUT DIFF 2021-11-08 22:44:00 Lewis Galindo [facility] CBC WITHOUT DIFF 2021-11-08 22:44:00 Lewis Galindo [facility] TRANSFUSE PACKED RBC 2021-11-08 22:05:00 Kenyon Cunningham [facility] TRANSFUSE PACKED RBC 2021-11-08 22:05:00 Kenyon Cunningham [facility] TRANSFUSE PACKED RBC 2021-11-08 22:05:00 Kenyon Cunningham [facility] PREPARE PACKED RBC 2021-11-08 21:51:35 Kenyon Cunningham [facility] PREPARE PACKED RBC 2021-11-08 21:51:35 Octavio, [facility] PREPARE PACKED RBC 2021-11-08 21:51:35 Octavio [facility] POCT GLUCOSE (AUTOMATED) 2021-11-08 21:12:00 Perez Cosby [facility] POCT GLUCOSE (AUTOMATED) 2021-11-08 21:12:00 Perez Cosby [facility] POCT GLUCOSE (AUTOMATED) 2021-11-08 21:12:00 Perez Cosby [facility] COLONOSCOPY (ENDO) 2021-11-08 19:03:[address] [facility] COLONOSCOPY (ENDO) 2021-11-08 19:03:[address] [facility] COLONOSCOPY (ENDO) 2021-11-08 19:03:[address] [facility] COLONOSCOPY 2021-11-08 18:51:00 Pako [facility] COLONOSCOPY 2021-11-08 18[facility]51[facility] 2021-11-08 18:51:00 Pako [facility] POCT GLUCOSE (AUTOMATED) 2021-11-08 16:44:00 Ariel Armstrong [facility] POCT GLUCOSE (AUTOMATED) 2021-11-08 16:44:00 Ariel Armstrong [facility] POCT GLUCOSE (AUTOMATED) 2021-11-08 16:44:00 Ariel Armstrong [facility] CBC WITHOUT DIFF 2021-11-08 15:40:00 Octavio [facility] CBC WITHOUT DIFF 2021-11-08 15:40:00 Octavio [facility] CBC WITHOUT DIFF 2021-11-08 15:40:00 Octavio [facility] CBC WITH DIFF 2021-11-08 14:27:00 Lewis Galindo [facility] CBC WITH DIFF 2021-11-08 14:27:00 Lewis Galindo [facility] CBC WITH DIFF 2021-11-08 14:27:00 Lewis Galindo [facility] POCT GLUCOSE (AUTOMATED) 2021-11-08 12:12:00 Ariel Armstrong [facility] POCT GLUCOSE (AUTOMATED) 2021-11-08 12:12:00 Ariel Armstrong [facility] POCT GLUCOSE (AUTOMATED) 2021-11-08 12:12:00 Ariel Armstrong [facility] MAGNESIUM 2021-11-08 07:59:00 Lewis Galindo [facility] BASIC METABOLIC PANEL 2021-11-08 07:59[facility], CO[facility], [facility] Branch GLUCOSE, BUN, CREATININE, CA) CBC WITH DIFF 2021-11-08 07:59:00 Lewis Galindo [facility] CBC WITH DIFF 2021-11-08 07:59:00 Lewis Galindo [facility] BASIC METABOLIC PANEL 2021-11-08 07:59[facility] ([facility], [facility], CL, CO2, Medical Branch GLUCOSE, BUN, CREATININE, CA) MAGNESIUM 2021-11-08 07:59:00 Lewis Galindo [facility] MAGNESIUM 2021-11-08 07:59:00 Lewis Galindo [facility] BASIC METABOLIC PANEL 2021-11-08 07:59[facility] ([facility], [facility], CL, CO2, Medical Branch GLUCOSE, BUN, CREATININE, CA) CBC WITH DIFF 2021-11-08 07:59:00 Lewis Galindo [facility] POCT GLUCOSE (AUTOMATED) 2021-11-08 02:07:00 Ariel Armstrong [facility] POCT GLUCOSE (AUTOMATED) 2021-11-08 02:07:00 Ariel Armstrong [facility] POCT GLUCOSE (AUTOMATED) 2021-11-08 02:07:00 Ariel Armstrong [facility] CBC WITH DIFF 2021-11-07 23:56:00 Lewis Galindo [facility] CBC WITH DIFF 2021-11-07 23:56:00 Lewis Galindo [facility] CBC WITH DIFF 2021-11-07 23:56:00 Lewis Galindo [facility] POCT GLUCOSE (AUTOMATED) 2021-11-07 22:57:00 Ariel Armstrong [facility] POCT GLUCOSE (AUTOMATED) 2021-11-07 22:57:00 Ariel Armstrong [facility] POCT GLUCOSE (AUTOMATED) 2021-11-07 22:57:00 Ariel Armstrong [facility] POCT GLUCOSE (AUTOMATED) 2021-11-07 21:06:00 Ariel Armstrong [facility] POCT GLUCOSE (AUTOMATED) 2021-11-07 21:06:00 Ariel Armstrong [facility] POCT GLUCOSE (AUTOMATED) 2021-11-07 21:06:00 Ariel Armstrong [facility] TRANSFUSE PACKED RBC 2021-11-07 21:04:[address] [facility] TRANSFUSE PACKED RBC 2021-11-07 21:04:00 Rahel [facility] TRANSFUSE PACKED RBC 2021-11-07 21:04:[address] [facility] PREPARE PACKED RBC 2021-11-07 20:41:48 Rahel [facility] PREPARE PACKED RBC 2021-11-07 20:41:48 Rahel [facility] PREPARE PACKED RBC 2021-11-07 20:41:48 Sarah Mcginnis [facility] CBC WITHOUT DIFF 2021-11-07 19:01:00 Cain, [facility] CBC WITHOUT DIFF 2021-11-07 19:01:00 Cain, [facility] CBC WITHOUT DIFF 2021-11-07 19:01:00 Cain, [facility] POCT GLUCOSE (AUTOMATED) 2021-11-07 16:20:00 Ariel Armstrong [facility] POCT GLUCOSE (AUTOMATED) 2021-11-07 16:20:00 Ariel Armstrong [facility] POCT GLUCOSE (AUTOMATED) 2021-11-07 16:20:00 Ariel Armstrong [facility] CBC WITHOUT DIFF 2021-11-07 13:14:00 Cain, [facility] CBC WITHOUT DIFF 2021-11-07 13:14:00 Cain, [facility] CBC WITHOUT DIFF 2021-11-07 13:14:00 Cain, [facility] POCT GLUCOSE (AUTOMATED) 2021-11-07 13:12:00 Airel Armstrong [facility] POCT GLUCOSE (AUTOMATED) 2021-11-07 13:12:00 Ariel Armstrong [facility] POCT GLUCOSE (AUTOMATED) 2021-11-07 13:12:00 Ariel Armstrong [facility] MAGNESIUM 2021-11-07 07:55:00 [facility] BASIC METABOLIC PANEL 2021-11-07 07:55:00 Lewis Galindo [facility] (NA, K, CL, CO2, Medical Branch GLUCOSE, BUN, CREATININE, CA) MAGNESIUM 2021-11-07 07:55:00 [facility] BASIC METABOLIC PANEL 2021-11-07 07:55:00 Lewis Galindo [facility] (NA, K, CL, CO2, Medical Branch GLUCOSE, BUN, CREATININE, CA) [facility] 2021-11-07 07:55:00 [facility] BAS[facility] METABOLIC PANEL 2021-11-07 07:55:00 Lewis Galindo [facility] (NA, K, CL, CO2, Medical Branch GLUCOSE, BUN, CREATININE, CA) CBC WITHOUT DIFF 2021-11-07 07:54:00 Cain, [facility] CBC WITHOUT DIFF 2021-11-07 07:54:00 Cain, [facility] CBC WITHOUT DIFF 2021-11-07 07:54:00 Cain, [facility] TRANSFUSE PACKED RBC 2021-11-07 03:05[facility] 2021-11-07 03:05:00 Yordy Orantes [facility] TRANSFUSE PACKED RBC 2021-11-07 03:05:00 [facility] PREPARE PACKED RBC 2021-11-07 02:58:01 Rolanda [facility] PREPARE PACKED RBC 2021-11-07 02:58:01 Rolanda [facility] PREPARE PACKED RBC 2021-11-07 02:58:01 Rolanda [facility] POCT GLUCOSE (AUTOMATED) 2021-11-07 01:43:00 Ariel Armstrong [facility] POCT GLUCOSE (AUTOMATED) 2021-11-07 01:43:00 Ariel Armstrong [facility] POCT GLUCOSE (AUTOMATED) 2021-11-07 01:43:00 Ariel Armstrong [facility] ABORH CONFIRMATION (LAB 2021-11-07 01:36[facility] ABORH CONFIRMATION (LAB 2021-11-07 01:36:00 Rolanda [facility] ONLY) Medical Benld ABORH CONFIRMATION (LAB 2021-11-07 01:36[facility] HB ABO GROUPING 2021-11-07 01:05:00 Rolanda [facility] HB ABO GROUPING 2021-11-07 01:05:00 Rolanda [facility] HB ABO GROUPING 2021-11-07 01:05:00 Rolanda [facility] CBC WITHOUT DIFF 2021-11-07 00:59:00 Cain, [facility] CBC WITHOUT DIFF 2021-11-07 00:59:00 Cain, [facility] CBC WITHOUT DIFF 2021-11-07 00:59:00 Cain, [facility] POCT GLUCOSE (AUTOMATED) 2021-11-06 23:15:00 Ariel Armstrong [facility] POCT GLUCOSE (AUTOMATED) 2021-11-06 23:15:00 Ariel Armstrong [facility] POCT GLUCOSE (AUTOMATED) 2021-11-06 23:15:00 Ariel Armstrong [facility] CBC WITHOUT DIFF 2021-11-06 19:53:00 Lewis Galindo [facility] CBC WITHOUT DIFF 2021-11-06 19:53:00 Lewis Galindo [facility] CBC WITHOUT DIFF 2021-11-06 19:53:00 Lewis Galindo [facility] POCT GLUCOSE (AUTOMATED) 2021-11-06 18:07:00 Ariel Armstrong [facility] POCT GLUCOSE (AUTOMATED) 2021-11-06 18:07:00 Ariel Armstrong [facility] POCT GLUCOSE (AUTOMATED) 2021-11-06 18:07:00 Ariel Armstrong [facility] POCT GLUCOSE (AUTOMATED) 2021-11-06 14:36:00 Ariel Armstrong [facility] POCT GLUCOSE (AUTOMATED) 2021-11-06 14:36:00 Ariel Armstrong [facility] POCT GLUCOSE (AUTOMATED) 2021-11-06 14:36:00 Ariel Armstrong [facility] CT ABDOMEN PELVIS W 2021-11-06 14:07:37 [facility] CT ABDOMEN PELVIS W 2021-11-06 14:07:37 [facility] CT ABDOMEN PELVIS W 2021-11-06 14:07:37 Lewis Galindo [facility] CBC WITHOUT DIFF 2021-11-06 13:37:00 Lewis Galindo [facility] CBC WITHOUT DIFF 2021-11-06 13:37:00 Lewis Galindo [facility] CBC WITHOUT DIFF 2021-11-06 13:37:00 Lewis Galindo [facility] FIBRINOGEN 2021-11-06 12:26:00 Rohith Mahoney [facility] MRSA / MSSA SCREEN BY 2021-11-06 12:26:00 Yordy Orantes [facility] PCR, [facility] FIBRINOGEN 2021-11-06 12:26:00 Talent [facility] MRSA / MSSA SCREEN BY 2021-11-06 12:26:00 Yordy Orantes [facility] PCR, [facility] Branch FIBRINOGEN 2021-11-06 12:26:00 Talent, [facility] MRSA / MSSA SCREEN BY 2021-11-06 12:26:00 [facility] PCR, [facility] COVID-19 (ID NOW RAPID 2021-11-06 08:48:00 [facility] Branch LAB ONLY COVID 2021-11-06 08:48:00 Homer Pelaez [facility] COVID-19 (ID NOW RAPID 2021-11-06 08:48:00 Benigno [facility] TESTING) Medical Branch LAB ONLY COVID 2021-11-06 08:48:00 Homer Pelaez [facility] Branch COVID-19 (ID NOW RAPID 2021-11-06 08:48:00 Benigno [facility] TESTING) Medical Branch LAB ONLY COVID 2021-11-06 08:48:00 Homer Pelaez [facility] PROTHROMBIN TIME / INR 2021-11-06 08:40:00 Homer Pelaez [facility] PROTHROMBIN TIME / INR 2021-11-06 08:40:[address] [facility] PROTHROMBIN TIME / INR 2021-11-06 08:40:[address] [facility] FERRITIN SERUM 2021-11-06 08:09:00 Payton [facility] COMP. METABOLIC PANEL 2021-11-06 08:09:00 Homer Pelaez [facility] ([id number]) Medical Branch IRON PANEL 2021-11-06 08:09:00 Payton [facility] CBC WITHOUT DIFF 2021-11-06 08:09:00 Homer Pelaez [facility] GLYCOSYLATED HEMOGLOBIN 2021-11-06 08:09:00 Yordy Orantes [facility] RETICULOCYTES AUTOMATED 2021-11-06 08:09:00 Cain, [facility] CBC WITHOUT DIFF 2021-11-06 08:09:00 Homer Pelaez [facility] COMP. METABOLIC PANEL 2021-11-06 08:09:00 Homer Pelaez [facility] ([id number]) [facility] RETICULOCYTES AUTOMATED 2021-11-06 08:09:00 Cain, [facility] GLYCOSYLATED HEMOGLOBIN 2021-11-06 08:09:00 Rolanda [facility] (A1C) [facility] IRON PANEL 2021-11-06 08:09:00 Cain, [facility] FERRITIN SERUM 2021-11-06 08:09:00 Cain, [facility] FERRITIN SERUM 2021-11-06 08:09:00 Cain, [facility] COMP. METABOLIC PANEL 2021-11-06 08:09:00 Homer Pelaez [facility] ([id number]) [facility] IRON PANEL 2021-11-06 08:09:00 Cain, [facility] CBC WITHOUT DIFF 2021-11-06 08:09:00 Homer Pelaez [facility] GLYCOSYLATED HEMOGLOBIN 2021-11-06 08:09:00 Yrody Orantes [facility] RETICULOCYTES AUTOMATED 2021-11-06 08:09:00 Cain, [facility] NOTICE OF PRIVACY 2021-11-06 07:57:30 Doctor Unassigned, No [facility] CONSENT/REFUSAL FOR 2021-11-06 07:57:08 Doctor Unassigned, No [facility] HOSPITAL ADMISSION 2021-11-06 06:01:00 Doctor Unassigned, No [facility] HOSPITAL ADMISSION 2021-11-06 06:01:00 Doctor Unassigned, No [facility] Medical Branch HOSPITAL ADMISSION 2021-11-06 06:01:00 Doctor Unassigned, No [facility] Medical Benld DUPLEX VENOUS LEGS 2021-10-22 20:28:00 Rodríguez Botello [facility] BILATERAL - BY VASCULAR Medical Branch LAB CONSENT/REFUSAL FOR 2021-10-22 20:08:39 Doctor Unassigned, [facility] Name Medical Branch ASSIGNMENT OF BENEFITS 2021-10-22 20:08:22 Doctor Unassigned, No [facility] XR HIPS 2 VW RIGHT 2020-12-31 17:10:51 Khadar Ling [facility] XR PELVIS <3 VW 2020-12-31 17:10:20 [facility] Plan of Care Planned Activity Planned Date Details Comments Source Future Scheduled 2022-11-06 Screening for [facility] Test 00:00:00 malignant neoplasm of Medica l Branch cervix (procedure) [code = 990645585] Future Scheduled 2022-11-06 Screening for [facility] Test 00:00:00 malignant neoplasm of Medica l Branch cervix (procedure) [code = 527421697] Future Scheduled 2021-08-13 Screening for [facility] Test 00:00:00 malignant neoplasm of Medica l Branch breast (procedure) [code = 677215057] Future Scheduled 2021-08-13 Screening for [facility] Test 00:00:00 malignant neoplasm of Medica l Branch breast (procedure) [code = 715376623] Future Scheduled 2021-04-28 INFLUENZA VACCINE Univer sity [facility] Test 00:00:00 (Season Ended) [code = Medic al Branch INFLUENZA VACCINE (Season Ended)] Future Scheduled 2021-04-28 INFLUENZA VACCINE Univer sity [facility] Test 00:00:00 (Season Ended) [code = Medic al Branch INFLUENZA VACCINE (Season Ended)] Future Scheduled 2009 Screening for occult Uni versity [facility] Test 00:00:00 blood in feces Medical Branc h (procedure) [code = 189425585] Future Scheduled 2009 Stool DNA-based [facility] Test 00:00:00 colorectal cancer Medical Br anch screening (procedure) [code = 571289394270085] Future Scheduled 2009 Flexible fiberoptic [facility] Test 00:00:00 sigmoidoscopy Medical Branch (procedure) [code = 01083838] Future Scheduled 2009 Screening for [facility] Test 00:00:00 malignant neoplasm of Medica l Branch colon (procedure) [code = 217852356] Future Scheduled 2009 Screening for [facility] Test 00:00:00 malignant neoplasm of Medica l Branch colon (procedure) [code = 644936623] Future Scheduled 2009 Zoster Recombinant Unive [facility] Test 00:00:00 Vaccine (SHINGRIX) (1 Medica l Branch of 2) [code = Zoster Recombinant Vaccine (SHINGRIX) (1 of 2)] Future Scheduled 2009 Screening for occult Uni [facility] Test 00:00:00 blood in feces Medical Bran h (procedure) [code = 433319520] Future Scheduled 2009 Stool DNA-based [facility] Test 00:00:00 colorectal cancer Medical Br anch screening (procedure) [code = 329936555008414] Future Scheduled 2009 Flexible fiberoptic [facility] Test 00:00:00 sigmoidoscopy Medical Branch (procedure) [code = 34062385] Future Scheduled 2009 Screening for [facility] Test 00:00:00 malignant neoplasm of Medica l Branch colon (procedure) [code = 389031291] Future Scheduled 2009 Screening for [facility] Test 00:00:00 malignant neoplasm of Medica l Branch colon (procedure) [code = 043927237] Future Scheduled 2009 Zoster Recombinant Unive [facility] Test 00:00:00 Vaccine (SHINGRIX) (1 Medica l Branch of 2) [code = Zoster Recombinant Vaccine (SHINGRIX) (1 of 2)] Future Scheduled 1978 DTaP,Tdap,and Td Univers ity [facility] Test 00:00:00 Vaccines (1 - Tdap) Medical Branch [code = DTaP,Tdap,and Td Vaccines (1 - Tdap)] Future Scheduled 1978 DTaP,Tdap,and Td [facility] [place] Test 00:00:00 Vaccines (1 - Tdap) Medical Branch [code = DTaP,Tdap,and Td Vaccines (1 - Tdap)] Future Scheduled 1977 Hepatitis C screening [facility] [place] Test 00:00:00 (procedure) [code = Medical Branch 873373141] Future Scheduled 1977 Hepatitis C screening [facility] [place] Test 00:00:00 (procedure) [code = Medical Branch 509515770] Future Scheduled 1975 SARS-CoV-2 (COVID-19) [facility] [place] Test 00:00:00 Vaccine (1) [code = Medical Branch SARS-CoV-2 (COVID-19) Vaccine (1)] Future Scheduled 1975 SARS-CoV-2 (COVID-19) [facility] [place] Test 00:00:00 Vaccine (1) [code = Medical Branch SARS-CoV-2 (COVID-19) Vaccine (1)] Future Scheduled 1971 Depression screening [facility] [place] Test 00:00:00 (procedure) [code = Medical Branch 396631131] Future Scheduled 1971 Depression screening [facility] [place] Test 00:00:00 (procedure) [code = Medical Branch 259524129] Encounters Start End Encounter Admission Attending Care Care Encounter Source Date/Time Date/Time Type Type Clinicians Facility Department ID 2021-11-26 2021-11-26 Outpatient [facility] [id number] Univers 10:05:05 23:59:00 RODRÍGUEZ pimentel [facility] 2021-11-26 2021-11-26 [facility] [id number] Univers 10:00:00 23:59:00 Encounter Rodríguez HARTMANN 350.1.13.10 itjessika [facility] 4.2.7.2.686 [facility] [id number] [facility] 80 Branch 2021-11-26 2021-11-26 [facility] [id number] P-20 Univers 10:00:00 10:00:00 RODRÍGUEZ [id number] dequany [facility] 2021-11-26 2021-11-26 Orders Doctor GALINDO [id number] Univers 00:00:00 00:00:00 Only Unassigned, PAUL 350.1.13.10 ity of [place] [facility] 4.2.7.2.686 Hollis as [id number] [facility] 009 Branch 2021-11-16 2021-11-16 Transition LYDIA Dempsey 1.2.840.114 [id number] Univers 00:00:00 00:00:00 of Care Mary Anne HO 350.1.13.10 it [place] [id number] [facility] 403 Branch 2021-11-06 2021-11-15 Inpatient X YAZMIN, [facility] [id number] Univers 02:01:00 18:18:00 FELTON ity of [facility] 2021-11-06 2021-11-15 [facility] Homer Pelaez 1.2.840. 114 [id number] Univers 02:01:00 18:18:00 Encounter Ariel Armstrong 350.1.13. 10 [facility] 4.2.7.2. 686 [place] Narciso Jean [id number] Medical Felton Arce 093 Branch 2021-11-08 2021-11-08 Anesthesia Camilla, 1.2.840.9 [id number] Univers 14:27:00 15:44:00 Event Acosta Ballesteros 71244.1.1 ity of 3.104.2.7 [place] .3.794118 Medica l .8 Branch 2021-11-08 2021-11-08 Surgery Min, 1.2.840.9 [id number] Univers 10:50:00 11:41:00 Jorge 55147.1.1 ity of 3.104.2.7 [place] .3.162080 Medica l .8 Branch 2021-11-08 2021-11-08 Travel 1.2.840.1 [id number] Univers 00:00:00 00:00:00 87473.1.1 350.1.13.10 ity of 3.104.2.[place] 4[place].3.698 [place] .3.129744 084.8 Medica l .8 Branch 2021-11-06 2021-11-06 Travel 1.2.840.1 1.2.653.604 [id number] Univers 00:00:00 00:00:00 45350.1.1 350.1.13.10 ity of 3.104.2.[place].3.698 [place] .3.900147 084.8 Medica l .8 Branch 2021-11-06 2021-11-06 Orders Doctor 1.2.840.8 [id number] Univers 00:00:00 00:00:00 Only Unassigned, 41816.1.1 ity of [place] 3.104.2.7 [place] .3.020357 Medica l .8 Benld 2021-10-22 2021-10-22 [facility] Rod[facility]guez Botello 1.2.840.6 [id number] [facility] 14:00:00 23:59:00 Encounter Dona Romano 03589.1.1 ity of 3.104.2.7 [place] .3.735164 Medica l .8 Benld Results Test Description Test Time Test Comments Results Result Comments Source POCT GLUCOSE (AUTOMATED) 2021-11-15 22:45:02 Test Item Value Reference Range Interpretation Comme nts POCT GLU (test code = 2030276932) 80 mg/dL 70-110 Lab Interpretation (test code = 34891-8) [facility] GLUCOSE (AUTOMATED)2021-11-15 22:45:02 Test Item Value Reference Range Interpretation Comments POCT GLU (test code = 1131466951) 80 mg/dL 70-110 Lab Interpretation (test code = Normal 79202-0) [facility] GLUCOSE (AUTOMATED)2021-11-15 17:07:51 Test Item Value Reference Range Interpretation Comments POCT GLU (test code = 7926817973) 98 mg/dL 70-110 Lab Interpretation (test code = Normal 04066-8) [facility] GLUCOSE (AUTOMATED)2021-11-15 17:07:51 Test Item Value Reference Range Interpretation Comments POCT GLU (test code = 6122660553) 98 mg/dL 70-110 Lab Interpretation (test code = Normal 23596-3) [facility] GLUCOSE (AUTOMATED)2021-11-15 14:19:28 Test Item Value Reference Range Interpretation Comments POCT GLU (test code = 8930877181) 89 mg/dL 70-110 Lab Interpretation (test code = Normal 38310-8) [facility] GLUCOSE (AUTOMATED)2021-11-15 14:19:28 Test Item Value Reference Range Interpretation Comments POCT GLU (test code = 8246773425) 89 mg/dL 70-110 Lab Interpretation (test code = Normal 54059-2) [facility] METABOLIC PANEL (NA, K, CL, CO2, GLUCOSE, BUN, CREATININE, CA)2021-11-15 07:01:48 Test Item Value Reference Range Interpretation Comments NA (test code = 137 mmol/L 135-145 1164008013) K (test code = 3.7 mmol/L 3.5-5.0 5260755310) CL (test code = 112 mmol/L 98-108 H 8185866644) CO2 TOTAL (test code = 26 mmol/L 23-31 0810394087) AGAP (test code = <1 2-16 L 2440068207) BUN (test code = 4 mg/dL 7-23 L 7145726907) GLUCOSE (test code = 93 mg/dL 70-110 7471957722) CREATININE (test code = 0.82 mg/dL 0.50-1.04 7206853176) CALCIUM (test code = 8.2 mg/dL 8.6-10.6 L 8238833755) eGFR (test code = mL/min/1.73m2 5929609373) ALYSSA (test code = ALYSSA) Association of Glomerular Filtration Rate (GFR) and Staging of Kidney Disease* + --+ --+ ------+| GFR (mL/min/1.73 m2) ?| With Kidney Damage ?| ?Without Kidney Damage+ --------+ --------+ +| ?>90 ?| ?Stage one ?| ? Normal ?+ ---+ ---+ -------+| ?60-89 ?| ?Stage two ?| ? Decreased GFR ? + --+ --+ ------+| ?30-59 ?| ?Stage three ?| ? Stage three ? + --+ --+ ------+| ?15-29 ?| ?Stage four ? | ? Stage four ?+ ---+ ---+ -------+| ?<15 (or dialysis) ? ?| ?Stage five ? | ? Stage five ?+ ---+ ---+ -------+ *Each stage assumes the associated GFR level has been in effect for at least three months. ?Stages 1 to 5, with or without kidney disease, indicate chronic kidney disease. Notes: Determination of stages one and two (with eGFR >59mL/min/1.73 m2) requires estimation of kidney damage for at least three months as defined by structural or functional abnormalities of the kidney, manifested by either:Pathological abnormalities or Markers of kidney damage (including abnormalities in the composition of the blood or urine or abnormalities in imaging tests). Lab Interpretation Abnormal (test code = 86931-9) [facility] (NA, K, CL, CO2, GLUCOSE, BUN, CREATININE, CA)2021-11-15 07:01:48 Test Item Value Reference Range Interpretation Comments NA (test code = 137 mmol/L 135-145 0494495339) K (test code = 3.7 mmol/L 3.5-5.0 1608367079) CL (test code = 112 mmol/L 98-108 H 2526455158) CO2 TOTAL (test code = 26 mmol/L 23-31 9536126688) AGAP (test code = <1 2-16 L 5507858383) BUN (test code = 4 mg/dL 7-23 L 7390495656) GLUCOSE (test code = 93 mg/dL 70-110 6079224132) CREATININE (test code = 0.82 mg/dL 0.50-1.04 3754968996) CALCIUM (test code = 8.2 mg/dL 8.6-10.6 L 1589354906) eGFR (test code = mL/min/1.73m2 5031039670) ALYSSA (test code = ALYSSA) Association of Glomerular Filtration Rate (GFR) and Staging of Kidney Disease* + --+ --+ ------+| GFR (mL/min/1.73 m2) ?| With Kidney Damage ?| ?Without Kidney Damage+ --------+ --------+ +| ?>90 ?| ?Stage one ?| ? Normal ?+ ---+ ---+ -------+| ?60-89 ?| ?Stage two ?| ? Decreased GFR ? + --+ --+ ------+| ?30-59 ?| ?Stage three ?| ? Stage three ? + --+ --+ ------+| ?15-29 ?| ?Stage four ? | ? Stage four ?+ ---+ ---+ -------+| ?<15 (or dialysis) ? ?| ?Stage five ? | ? Stage five ?+ ---+ ---+ -------+ *Each stage assumes the associated GFR level has been in effect for at least three months. ?Stages 1 to 5, with or without kidney disease, indicate chronic kidney disease. Notes: Determination of stages one and two (with eGFR >59mL/min/1.73 m2) requires estimation of kidney damage for at least three months as defined by structural or functional abnormalities of the kidney, manifested by either:Pathological abnormalities or Markers of kidney damage (including abnormalities in the composition of the blood or urine or abnormalities in imaging tests). Lab Interpretation Abnormal (test code = 12531-3) [facility]57 Test Item Value Reference Range Interpretation Comments MAGNESIUM (test code = 1264897517) 1.9 mg/dL 1.7-2.4 Lab Interpretation (test code = Normal 55657-2) [facility] 06[facility]59:57 Test Item Value Reference Range Interpretation Comments MAGNESIUM (test code = 1027067003) 1.9 mg/dL 1.7-2.4 Lab Interpretation (test code = Normal 71177-1) [facility] WITH [id number] 06:38:59 Test Item Value Reference Range Interpretation Comments WBC (test code = See_Comment [Automated 9377-2) message] The sy stem which generated this result transmitted reference range : 4.30 - 11.10 10*3/?L. The reference range was not used to interpret this result as normal/abnormal . RBC (test code = See_Comment L [Automated 789-8) message] The sy stem which generated this result transmitted reference range : 3.93 - 5.25 10*6/?L. The reference range was not used to interpret this result as normal/abnormal . HGB (test code = 7.2 g/dL 11.6-15.0 L 718-7) HCT (test code = 22.1 % 35.7-45.2 L 4544-3) MCV (test code = 89.1 fL 80.6-95.5 787-2) MCH (test code = 29.0 pg 25.9-32.8 785-6) MCHC (test code = 32.6 g/dL 31.6-35.1 786-4) RDW-SD (test code = 44.0 fL 39.0-49.9 19859-0) RDW-CV (test code = 13.8 % 12.0-15.5 788-0) PLT (test code = See_Comment [Automated 777-3) message] The sy stem which generated this result transmitted reference range : 166 - 358 10*3/ ?L. The reference r jordyn was not used to interpret this result as normal/abnormal . MPV (test code = 9.4 fL 9.5-12.9 L 41549-4) NRBC/100 WBC (test See_Comment [Automat ed code = 9505883109) message] The system which generated this result transmitted reference range : 0.0 - 10.0 /100 WBCs. The refer ence range was not u sed to interpret th is result as normal/abnormal . NRBC x10^3 (test code <0.01 See_Comment [Auto mated = 6390122316) message] The s ystem which generated this result transmitted reference range : 10*3/?L. The reference range was not used to interpret this result as normal/abnormal . GRAN MAT (NEUT) % 54.5 % (test code = 770-8) IMM GRAN % (test code 0.20 % = 3396522146) LYMPH % (test code = 32.4 % 736-9) MONO % (test code = 6.8 % 5905-5) EOS % (test code = 5.5 % 713-8) BASO % (test code = 0.6 % 706-2) GRAN MAT x10^3(ANC) 2.55 10*3/uL 1.88-7.09 (test code = 5042530314) IMM GRAN x10^3 (test <0.03 0.00-0.06 code = 4170534838) LYMPH x10^3 (test code 1.52 10*3/uL 1.32-3.29 = 731-0) MONO x10^3 (test code 0.32 10*3/uL 0.33-0.92 L = 742-7) EOS x10^3 (test code = 0.26 10*3/uL 0.03-0.39 711-2) BASO x10^3 (test code 0.03 10*3/uL 0.01-0.07 = 704-7) Lab Interpretation Abnormal (test code = 12001-9) [facility] WITH [id number] 06:38:59 Test Item Value Reference Range Interpretation Comments WBC (test code = See_Comment [Automated 6690-2) message] The sy stem which generated this result transmitted reference range : 4.30 - 11.10 10*3/?L. The reference range was not used to interpret this result as normal/abnormal . RBC (test code = See_Comment L [Automated 599-8) message] The sy stem which generated this result transmitted reference range : 3.93 - 5.25 10*6/?L. The reference range was not used to interpret this result as normal/abnormal . HGB (test code = 7.2 g/dL 11.6-15.0 L 718-7) HCT (test code = 22.1 % 35.7-45.2 L 4544-3) MCV (test code = 89.1 fL 80.6-95.5 787-2) MCH (test code = 29.0 pg 25.9-32.8 785-6) MCHC (test code = 32.6 g/dL 31.6-35.1 786-4) RDW-SD (test code = 44.0 fL 39.0-49.9 62321-1) RDW-CV (test code = 13.8 % 12.0-15.5 788-0) PLT (test code = See_Comment [Automated 777-3) message] The sy stem which generated this result transmitted reference range : 166 - 358 10*3/ ?L. The reference r jordyn was not used to interpret this result as normal/abnormal . MPV (test code = 9.4 fL 9.5-12.9 L 89992-7) NRBC/100 WBC (test See_Comment [Automat ed code = 0056140907) message] The system which generated this result transmitted reference range : 0.0 - 10.0 /100 WBCs. The refer ence range was not u sed to interpret th is result as normal/abnormal . NRBC x10^3 (test code <0.01 See_Comment [Auto mated = 4166139927) message] The s ystem which generated this result transmitted reference range : 10*3/?L. The reference range was not used to interpret this result as normal/abnormal . GRAN MAT (NEUT) % 54.5 % (test code = 770-8) IMM GRAN % (test code 0.20 % = 5975351603) LYMPH % (test code = 32.4 % 736-9) MONO % (test code = 6.8 % 5905-5) EOS % (test code = 5.5 % 713-8) BASO % (test code = 0.6 % 706-2) GRAN MAT x10^3(ANC) 2.55 10*3/uL 1.88-7.09 (test code = 3404987635) IMM GRAN x10^3 (test <0.03 0.00-0.06 code = 9187509409) LYMPH x10^3 (test code 1.52 10*3/uL 1.32-3.29 = 731-0) MONO x10^3 (test code 0.32 10*3/uL 0.33-0.92 L = 742-7) EOS x10^3 (test code = 0.26 10*3/uL 0.03-0.39 711-2) BASO x10^3 (test code 0.03 10*3/uL 0.01-0.07 = 704-7) Lab Interpretation Abnormal (test code = 04788-5) [facility] GLUCOSE (AUTOMATED)2021-11-15 01:29:58 Test Item Value Reference Range Interpretation Comments POCT GLU (test code = 3171859325) 88 mg/dL 70-110 Lab Interpretation (test code = Normal 45712-6) [facility] GLUCOSE (AUTOMATED)2021-11-15 01:29:58 Test Item Value Reference Range Interpretation Comments POCT GLU (test code = 5619233810) 88 mg/dL 70-110 Lab Interpretation (test code = Normal 40047-3) [facility] GLUCOSE (AUTOMATED)2021-11-14 21:46:58 Test Item Value Reference Range Interpretation Comments POCT GLU (test code = 9025724547) 96 mg/dL 70-110 Lab Interpretation (test code = Normal 60318-4) [facility] GLUCOSE (AUTOMATED)2021-11-14 21:46:58 Test Item Value Reference Range Interpretation Comments POCT GLU (test code = 5029462565) 96 mg/dL 70-110 Lab Interpretation (test code = Normal 54309-3) [facility] WITHOUT [id number] 20:37:15 Test Item Value Reference Range Interpretation Comments WBC (test code = 6690-2) See_Comment [A utomated message] The system [employer] generated this result transmit derian reference range : 4.30 - 11.10 10*3/?L. The reference range was not used to interpret this result as normal/abnormal . RBC (test code = 789-8) See_Comment L [Au tomated message] The system [employer] generated this result transmit derian reference range : 3.93 - 5.25 10* 6/?L. The reference r jordyn was not used to interpret this result as normal/abnormal . HGB (test code = 718-7) 7.5 g/dL 11.6-15.0 L HCT (test code = 4544-3) 22.7 % 35.7-45.2 L MCH (test code = 785-6) 29.2 pg 25.9-32.8 MCV (test code = 787-2) 88.3 fL 80.6-95.5 MCHC (test code = 786-4) 33.0 g/dL 31.6-35.1 PLT (test code = 777-3) See_Comment [Au tomated message] The system [employer] generated this result transmit derian reference range : 166 - 358 10*3/?L. The reference range was not used to interpret this result as normal/abnormal . MPV (test code = 9.6 fL 9.5-12.9 31578-9) RDW-CV (test code = 13.8 % 12.0-15.5 788-0) RDW-SD (test code = 42.9 fL 39.0-49.9 36543-5) NRBC x10^3 (test code = <0.01 See_Comment [Au tomated message] [id number]) The system [facility] generated this result transmit derian reference range : 10*3/?L. The reference range was not used to interpret this result as normal/abnormal . NRBC/100 WBC (test code See_Comment [Au tomated message] = 6751780418) The system [facility] generated this result transmit derian reference range : 0.0 - 10.0 /100 WBC s. The reference r jordyn was not used to interpret this result as normal/abnormal . IPF % (test code = 1074395096) Lab Interpretation (test Abnormal code = 74821-4) [facility] WITHOUT [id number] 20:37:15 Test Item Value Reference Range Interpretation Comments WBC (test code = 6690-2) See_Comment [A utomated message] The system [facility] generated this result transmit derian reference range : 4.30 - 11.10 10*3/?L. The reference range was not used to interpret this result as normal/abnormal . RBC (test code = 789-8) See_Comment L [Au tomated message] The system [facility] generated this result transmit derian reference range : 3.93 - 5.25 10* 6/?L. The reference r jordyn was not used to interpret this result as normal/abnormal . HGB (test code = 718-7) 7.5 g/dL 11.6-15.0 L HCT (test code = 4544-3) 22.7 % 35.7-45.2 L MCH (test code = 785-6) 29.2 pg 25.9-32.8 MCV (test code = 787-2) 88.3 fL 80.6-95.5 MCHC (test code = 786-4) 33.0 g/dL 31.6-35.1 PLT (test code = 777-3) See_Comment [Au tomated message] The system [employer] generated this result transmit derian reference range : 166 - 358 10*3/?L. The reference range was not used to interpret this result as normal/abnormal . MPV (test code = 9.6 fL 9.5-12.9 22211-6) RDW-CV (test code = 13.8 % 12.0-15.5 788-0) RDW-SD (test code = 42.9 fL 39.0-49.9 28437-4) NRBC x10^3 (test code = <0.01 See_Comment [Au tomated message] 2479044659) The system [employer] generated this result transmit derian reference range : 10*3/?L. The reference range was not used to interpret this result as normal/abnormal . NRBC/100 WBC (test code See_Comment [Au tomated message] = 3261799651) The system [employer] generated this result transmit derian reference range : 0.0 - 10.0 /100 WBC s. The reference r jordyn was not used to interpret this result as normal/abnormal . IPF % (test code = 9501151681) Lab Interpretation (test Abnormal code = 25740-5) [facility] GLUCOSE (AUTOMATED)2021-11-14 16:39:12 Test Item Value Reference Range Interpretation Comments POCT GLU (test code = 4231816682) 102 mg/dL 70-110 Lab Interpretation (test code = Normal 64571-8) [facility] GLUCOSE (AUTOMATED)2021-11-14 16:39:12 Test Item Value Reference Range Interpretation Comments POCT GLU (test code = 9355132377) 102 mg/dL 70-110 Lab Interpretation (test code = Normal 89188-6) [facility] GLUCOSE (AUTOMATED)2021-11-14 13:09:04 Test Item Value Reference Range Interpretation Comments POCT GLU (test code = 7625950497) 89 mg/dL 70-110 Lab Interpretation (test code = Normal 04546-6) [facility] GLUCOSE (AUTOMATED)2021-11-14 13:09:04 Test Item Value Reference Range Interpretation Comments POCT GLU (test code = 9090326909) 89 mg/dL 70-110 Lab Interpretation (test code = Normal 17778-2) [facility] Test Item Value Reference Range Interpretation Comments MAGNESIUM (test code = 9029626674) 1.9 mg/dL 1.7-2.4 Lab Interpretation (test code = Normal 35969-3) [facility] (NA, K, CL, CO2, GLUCOSE, BUN, CREATININE, CA)2021-11-14 08:38:09 Test Item Value Reference Range Interpretation Comments NA (test code = 139 mmol/L 135-145 6225207405) K (test code = 3.5 mmol/L 3.5-5.0 7196408943) CL (test code = 112 mmol/L 98-108 H 0250625712) CO2 TOTAL (test code = 26 mmol/L 23-31 0022480251) AGAP (test code = 2-16 L 5391901876) BUN (test code = 4 mg/dL 7-23 L 2433442164) GLUCOSE (test code = 90 mg/dL 70-110 6000466925) CREATININE (test code = 0.82 mg/dL 0.50-1.04 3378862361) CALCIUM (test code = 8.3 mg/dL 8.6-10.6 L 6965552694) eGFR (test code = mL/min/1.73m2 7845865874) ALYSSA (test code = ALYSSA) Association of Glomerular Filtration Rate (GFR) and Staging of Kidney Disease* + --+ --+ ------+| GFR (mL/min/1.73 m2) ?| With Kidney Damage ?| ?Without Kidney Damage+ --------+ --------+ +| ?>90 ?| ?Stage one ?| ? Normal ?+ ---+ ---+ -------+| ?60-89 ?| ?Stage two ?| ? Decreased GFR ? + --+ --+ ------+| ?30-59 ?| ?Stage three ?| ? Stage three ? + --+ --+ ------+| ?15-29 ?| ?Stage four ? | ? Stage four ?+ ---+ ---+ -------+| ?<15 (or dialysis) ? ?| ?Stage five ? | ? Stage five ?+ ---+ ---+ -------+ *Each stage assumes the associated GFR level has been in effect for at least three months. ?Stages 1 to 5, with or without kidney disease, indicate chronic kidney disease. Notes: Determination of stages one and two (with eGFR >59mL/min/1.73 m2) requires estimation of kidney damage for at least three months as defined by structural or functional abnormalities of the kidney, manifested by either:Pathological abnormalities or Markers of kidney damage (including abnormalities in the composition of the blood or urine or abnormalities in imaging tests). Lab Interpretation Abnormal (test code = 39467-5) [facility] Test Item Value Reference Range Interpretation Comments MAGNESIUM (test code = 1111984923) 1.9 mg/dL 1.7-2.4 Lab Interpretation (test code = Normal 96820-1) [facility] (NA, K, CL, CO2, GLUCOSE, BUN, CREATININE, CA)2021-11-14 08:38:09 Test Item Value Reference Range Interpretation Comments NA (test code = 139 mmol/L 135-145 6869850940) K (test code = 3.5 mmol/L 3.5-5.0 2576527740) CL (test code = 112 mmol/L 98-108 H 0209321635) CO2 TOTAL (test code = 26 mmol/L 23-31 8938702546) AGAP (test code = 2-16 L 8165023062) BUN (test code = 4 mg/dL 7-23 L 6297028819) GLUCOSE (test code = 90 mg/dL 70-110 8232957028) CREATININE (test code = 0.82 mg/dL 0.50-1.04 0864268921) CALCIUM (test code = 8.3 mg/dL 8.6-10.6 L 3582563901) eGFR (test code = mL/min/1.73m2 8089729107) ALYSSA (test code = ALYSSA) Association of Glomerular Filtration Rate (GFR) and Staging of Kidney Disease* + --+ --+ ------+| GFR (mL/min/1.73 m2) ?| With Kidney Damage ?| ?Without Kidney Damage+ --------+ --------+ +| ?>90 ?| ?Stage one ?| ? Normal ?+ ---+ ---+ -------+| ?60-89 ?| ?Stage two ?| ? Decreased GFR ? + --+ --+ ------+| ?30-59 ?| ?Stage three ?| ? Stage three ? + --+ --+ ------+| ?15-29 ?| ?Stage four ? | ? Stage four ?+ ---+ ---+ -------+| ?<15 (or dialysis) ? ?| ?Stage five ? | ? Stage five ?+ ---+ ---+ -------+ *Each stage assumes the associated GFR level has been in effect for at least three months. ?Stages 1 to 5, with or without kidney disease, indicate chronic kidney disease. Notes: Determination of stages one and two (with eGFR >59mL/min/1.73 m2) requires estimation of kidney damage for at least three months as defined by structural or functional abnormalities of the kidney, manifested by either:Pathological abnormalities or Markers of kidney damage (including abnormalities in the composition of the blood or urine or abnormalities in imaging tests). Lab Interpretation Abnormal (test code = 33982-4) [facility] WITHOUT [id number] 08:04:48 Test Item Value Reference Range Interpretation Comments WBC (test code = 6690-2) See_Comment [A utomated message] The system [employer] generated this result transmit derian reference range : 4.30 - 11.10 10*3/?L. The reference range was not used to interpret this result as normal/abnormal . RBC (test code = 789-8) See_Comment L [Au tomated message] The system [employer] generated this result transmit derian reference range : 3.93 - 5.25 10* 6/?L. The reference r jordyn was not used to interpret this result as normal/abnormal . HGB (test code = 718-7) 7.3 g/dL 11.6-15.0 L HCT (test code = 4544-3) 22.5 % 35.7-45.2 L MCH (test code = 785-6) 28.5 pg 25.9-32.8 MCV (test code = 787-2) 87.9 fL 80.6-95.5 MCHC (test code = 786-4) 32.4 g/dL 31.6-35.1 PLT (test code = 777-3) See_Comment [Au tomated message] The system [employer] generated this result transmit derian reference range : 166 - 358 10*3/?L. The reference range was not used to interpret this result as normal/abnormal . MPV (test code = 9.7 fL 9.5-12.9 27131-7) RDW-CV (test code = 13.7 % 12.0-15.5 788-0) RDW-SD (test code = 42.9 fL 39.0-49.9 41721-0) NRBC x10^3 (test code = <0.01 See_Comment [Au tomated message] 0915495329) The system [employer] generated this result transmit derian reference range : 10*3/?L. The reference range was not used to interpret this result as normal/abnormal . NRBC/100 WBC (test code See_Comment [Au tomated message] = 4176045943) The system [facility] generated this result transmit derian reference range : 0.0 - 10.0 /100 WBC s. The reference r jordyn was not used to interpret this result as normal/abnormal . IPF % (test code = 8671935305) Lab Interpretation (test Abnormal code = 55793-3) [facility] WITHOUT [id number] 08:04:48 Test Item Value Reference Range Interpretation Comments WBC (test code = 6690-2) See_Comment [A utomated message] The system [facility] generated this result transmit derian reference range : 4.30 - 11.10 10*3/?L. The reference range was not used to interpret this result as normal/abnormal . RBC (test code = 789-8) See_Comment L [Au tomated message] The system [facility] generated this result transmit derian reference range : 3.93 - 5.25 10* 6/?L. The reference r jordyn was not used to interpret this result as normal/abnormal . HGB (test code = 718-7) 7.3 g/dL 11.6-15.0 L HCT (test code = 4544-3) 22.5 % 35.7-45.2 L MCH (test code = 785-6) 28.5 pg 25.9-32.8 MCV (test code = 787-2) 87.9 fL 80.6-95.5 MCHC (test code = 786-4) 32.4 g/dL 31.6-35.1 PLT (test code = 777-3) See_Comment [Au tomated message] The system [employer] generated this result transmit derian reference range : 166 - 358 10*3/?L. The reference range was not used to interpret this result as normal/abnormal . MPV (test code = 9.7 fL 9.5-12.9 42525-5) RDW-CV (test code = 13.7 % 12.0-15.5 788-0) RDW-SD (test code = 42.9 fL 39.0-49.9 15361-6) NRBC x10^3 (test code = <0.01 See_Comment [Au tomated message] 3209716506) The system [employer] generated this result transmit derian reference range : 10*3/?L. The reference range was not used to interpret this result as normal/abnormal . NRBC/100 WBC (test code See_Comment [Au tomated message] = 3059480723) The system [employer] generated this result transmit derian reference range : 0.0 - 10.0 /100 WBC s. The reference r jordyn was not used to interpret this result as normal/abnormal . IPF % (test code = 4652339219) Lab Interpretation (test Abnormal code = 79796-2) [facility] GLUCOSE (AUTOMATED)2021-11-14 02:10:42 Test Item Value Reference Range Interpretation Comments POCT GLU (test code = 3227135747) 90 mg/dL 70-110 Lab Interpretation (test code = Normal 31079-4) [facility] GLUCOSE (AUTOMATED)2021-11-14 02:10:42 Test Item Value Reference Range Interpretation Comments POCT GLU (test code = 5684241683) 90 mg/dL 70-110 Lab Interpretation (test code = Normal 87261-3) [facility] GLUCOSE (AUTOMATED)2021-11-13 17:09:52 Test Item Value Reference Range Interpretation Comments POCT GLU (test code = 2737539152) 88 mg/dL 70-110 Lab Interpretation (test code = Normal 95448-6) [facility] 17:09:52 Test Item Value Reference Range Interpretation Comments POCT GLU (test code = 3783973657) 88 mg/dL 70-110 Lab Interpretation (test code = Normal 77961-6) [facility] [id number] 16:00:58 Test Item Value Reference Range Interpretation Comments WBC (test code = 6690-2) See_Comment [A utomated message] The system [employer] generated this result transmit derian reference range : 4.30 - 11.10 10*3/?L. The reference range was not used to interpret this result as normal/abnormal . RBC (test code = 789-8) See_Comment L [Au tomated message] The system [employer] generated this result transmit derian reference range : 3.93 - 5.25 10* 6/?L. The reference r jordyn was not used to interpret this result as normal/abnormal . HGB (test code = 718-7) 7.6 g/dL 11.6-15.0 L HCT (test code = 4544-3) 23.5 % 35.7-45.2 L MCH (test code = 785-6) 28.7 pg 25.9-32.8 MCV (test code = 787-2) 88.7 fL 80.6-95.5 MCHC (test code = 786-4) 32.3 g/dL 31.6-35.1 PLT (test code = 777-3) See_Comment [Au tomated message] The system [employer] generated this result transmit derian reference range : 166 - 358 10*3/?L. The reference range was not used to interpret this result as normal/abnormal . MPV (test code = 9.6 fL 9.5-12.9 03185-8) RDW-CV (test code = 13.8 % 12.0-15.5 788-0) RDW-SD (test code = 43.6 fL 39.0-49.9 53512-1) NRBC x10^3 (test code = <0.01 See_Comment [Au tomated message] 0577880733) The system [employer] generated this result transmit derian reference range : 10*3/?L. The reference range was not used to interpret this result as normal/abnormal . NRBC/100 WBC (test code See_Comment [Au tomated message] = 5053937486) The system [employer] generated this result transmit derian reference range : 0.0 - 10.0 /100 WBC s. The reference r jordyn was not used to interpret this result as normal/abnormal . IPF % (test code = 8082518161) Lab Interpretation (test Abnormal code = 35168-2) [facility] WITHOUT [id number] 16:00:58 Test Item Value Reference Range Interpretation Comments WBC (test code = 6690-2) See_Comment [A utomated message] The system [employer] generated this result transmit derian reference range : 4.30 - 11.10 10*3/?L. The reference range was not used to interpret this result as normal/abnormal . RBC (test code = 789-8) See_Comment L [Au tomated message] The system [employer] generated this result transmit derian reference range : 3.93 - 5.25 10* 6/?L. The reference r jordyn was not used to interpret this result as normal/abnormal . HGB (test code = 718-7) 7.6 g/dL 11.6-15.0 L HCT (test code = 4544-3) 23.5 % 35.7-45.2 L MCH (test code = 785-6) 28.7 pg 25.9-32.8 MCV (test code = 787-2) 88.7 fL 80.6-95.5 MCHC (test code = 786-4) 32.3 g/dL 31.6-35.1 PLT (test code = 777-3) See_Comment [Au tomated message] The system [employer] generated this result transmit derian reference range : 166 - 358 10*3/?L. The reference range was not used to interpret this result as normal/abnormal . MPV (test code = 9.6 fL 9.5-12.9 13850-6) RDW-CV (test code = 13.8 % 12.0-15.5 788-0) RDW-SD (test code = 43.6 fL 39.0-49.9 88693-0) NRBC x10^3 (test code = <0.01 See_Comment [Au tomated message] 4845037477) The system [employer] generated this result transmit derian reference range : 10*3/?L. The reference range was not used to interpret this result as normal/abnormal . NRBC/100 WBC (test code See_Comment [Au tomated message] = 4684748747) The system [facility] generated this result transmit derian reference range : 0.0 - 10.0 /100 WBC s. The reference r jordyn was not used to interpret this result as normal/abnormal . IPF % (test code = 9018801675) Lab Interpretation (test Abnormal code = 07939-9) [facility] WITHOUT [id number] 16:00:58 Test Item Value Reference Range Interpretation Comments WBC (test code = 6690-2) See_Comment [A utomated message] The system [employer] generated this result transmit derian reference range : 4.30 - 11.10 10*3/?L. The reference range was not used to interpret this result as normal/abnormal . RBC (test code = 789-8) See_Comment L [Au tomated message] The system [employer] generated this result transmit derian reference range : 3.93 - 5.25 10* 6/?L. The reference r jordyn was not used to interpret this result as normal/abnormal . HGB (test code = 718-7) 7.6 g/dL 11.6-15.0 L HCT (test code = 4544-3) 23.5 % 35.7-45.2 L MCH (test code = 785-6) 28.7 pg 25.9-32.8 MCV (test code = 787-2) 88.7 fL 80.6-95.5 MCHC (test code = 786-4) 32.3 g/dL 31.6-35.1 PLT (test code = 777-3) See_Comment [Au tomated message] The system [employer] generated this result transmit derian reference range : 166 - 358 10*3/?L. The reference range was not used to interpret this result as normal/abnormal . MPV (test code = 9.6 fL 9.5-12.9 85698-6) RDW-CV (test code = 13.8 % 12.0-15.5 788-0) RDW-SD (test code = 43.6 fL 39.0-49.9 57827-1) NRBC x10^3 (test code = <0.01 See_Comment [Au tomated message] 2447842333) The system [employer] generated this result transmit derian reference range : 10*3/?L. The reference range was not used to interpret this result as normal/abnormal . NRBC/100 WBC (test code See_Comment [Au tomated message] = 3695236402) The system [employer] generated this result transmit derian reference range : 0.0 - 10.0 /100 WBC s. The reference r jordyn was not used to interpret this result as normal/abnormal . IPF % (test code = 1356296633) Lab Interpretation (test Abnormal code = 98624-8) [facility] GLUCOSE (AUTOMATED)2021-11-13 13:22:30 Test Item Value Reference Range Interpretation Comments POCT GLU (test code = 2895827528) 105 mg/dL 70-110 Lab Interpretation (test code = Normal 84322-2) [facility] GLUCOSE (AUTOMATED)2021-11-13 13:22:30 Test Item Value Reference Range Interpretation Comments POCT GLU (test code = 0539710477) 105 mg/dL 70-110 Lab Interpretation (test code = Normal 85848-7) [facility] GLUCOSE (AUTOMATED)2021-11-13 13:22:30 Test Item Value Reference Range Interpretation Comments POCT GLU (test code = 2724632472) 105 mg/dL 70-110 Lab Interpretation (test code = Normal 33831-5) [facility] (NA, K, CL, CO2, GLUCOSE, BUN, CREATININE, CA)2021-11-13 10:56:21 Test Item Value Reference Range Interpretation Comments NA (test code = 137 mmol/L 135-145 7318524809) K (test code = 3.7 mmol/L 3.5-5.0 0168189793) CL (test code = 113 mmol/L 98-108 H 5706655992) CO2 TOTAL (test code = 25 mmol/L 23-31 8996028100) AGAP (test code = <1 2-16 L 6695616467) BUN (test code = 5 mg/dL 7-23 L 5842356910) GLUCOSE (test code = 93 mg/dL 70-110 0116425201) CREATININE (test code = 0.82 mg/dL 0.50-1.04 1961227654) CALCIUM (test code = 8.0 mg/dL 8.6-10.6 L 2013673931) eGFR (test code = mL/min/1.73m2 8359642635) ALYSSA (test code = ALYSSA) Association of Glomerular Filtration Rate (GFR) and Staging of Kidney Disease* + --+ --+ ------+| GFR (mL/min/1.73 m2) ?| With Kidney Damage ?| ?Without Kidney Damage+ --------+ --------+ +| ?>90 ?| ?Stage one ?| ? Normal ?+ ---+ ---+ -------+| ?60-89 ?| ?Stage two ?| ? Decreased GFR ? + --+ --+ ------+| ?30-59 ?| ?Stage three ?| ? Stage three ? + --+ --+ ------+| ?15-29 ?| ?Stage four ? | ? Stage four ?+ ---+ ---+ -------+| ?<15 (or dialysis) ? ?| ?Stage five ? | ? Stage five ?+ ---+ ---+ -------+ *Each stage assumes the associated GFR level has been in effect for at least three months. ?Stages 1 to 5, with or without kidney disease, indicate chronic kidney disease. Notes: Determination of stages one and two (with eGFR >59mL/min/1.73 m2) requires estimation of kidney damage for at least three months as defined by structural or functional abnormalities of the kidney, manifested by either:Pathological abnormalities or Markers of kidney damage (including abnormalities in the composition of the blood or urine or abnormalities in imaging tests). Lab Interpretation Abnormal (test code = 85452-1) [facility] METABOLIC PANEL (NA, K, CL, CO2, GLUCOSE, BUN, CREATININE, CA)2021-11-13 10:56:21 Test Item Value Reference Range Interpretation Comments NA (test code = 137 mmol/L 135-145 9952453375) K (test code = 3.7 mmol/L 3.5-5.0 1905643485) CL (test code = 113 mmol/L 98-108 H 6645829396) CO2 TOTAL (test code = 25 mmol/L 23-31 3091625877) AGAP (test code = <1 2-16 L 1620083123) BUN (test code = 5 mg/dL 7-23 L 0993476987) GLUCOSE (test code = 93 mg/dL 70-110 3753143349) CREATININE (test code = 0.82 mg/dL 0.50-1.04 4433990788) CALCIUM (test code = 8.0 mg/dL 8.6-10.6 L 2478309610) eGFR (test code = mL/min/1.73m2 0075932935) ALYSSA (test code = ALYSSA) Association of Glomerular Filtration Rate (GFR) and Staging of Kidney Disease* + --+ --+ ------+| GFR (mL/min/1.73 m2) ?| With Kidney Damage ?| ?Without Kidney Damage+ --------+ --------+ +| ?>90 ?| ?Stage one ?| ? Normal ?+ ---+ ---+ -------+| ?60-89 ?| ?Stage two ?| ? Decreased GFR ? + --+ --+ ------+| ?30-59 ?| ?Stage three ?| ? Stage three ? + --+ --+ ------+| ?15-29 ?| ?Stage four ? | ? Stage four ?+ ---+ ---+ -------+| ?<15 (or dialysis) ? ?| ?Stage five ? | ? Stage five ?+ ---+ ---+ -------+ *Each stage assumes the associated GFR level has been in effect for at least three months. ?Stages 1 to 5, with or without kidney disease, indicate chronic kidney disease. Notes: Determination of stages one and two (with eGFR >59mL/min/1.73 m2) requires estimation of kidney damage for at least three months as defined by structural or functional abnormalities of the kidney, manifested by either:Pathological abnormalities or Markers of kidney damage (including abnormalities in the composition of the blood or urine or abnormalities in imaging tests). Lab Interpretation Abnormal (test code = 19670-2) [facility] (NA, K, CL, CO2, GLUCOSE, BUN, CREATININE, CA)2021-11-13 10:56:21 Test Item Value Reference Range Interpretation Comments NA (test code = 137 mmol/L 135-145 3243912921) K (test code = 3.7 mmol/L 3.5-5.0 8802987396) CL (test code = 113 mmol/L 98-108 H 5082487647) CO2 TOTAL (test code = 25 mmol/L 23-31 4940379046) AGAP (test code = <1 2-16 L 0100064166) BUN (test code = 5 mg/dL 7-23 L 3502613627) GLUCOSE (test code = 93 mg/dL 70-110 [id number]) CREATININE (test code = 0.82 mg/dL 0.50-1.04 0185948965) CALCIUM (test code = 8.0 mg/dL 8.6-10.6 L 4419815886) eGFR (test code = mL/min/1.73m2 3760785508) ALYSSA (test code = ALYSSA) Association of Glomerular Filtration Rate (GFR) and Staging of Kidney Disease* + --+ --+ ------+| GFR (mL/min/1.73 m2) ?| With Kidney Damage ?| ?Without Kidney Damage+ --------+ --------+ +| ?>90 ?| ?Stage one ?| ? Normal ?+ ---+ ---+ -------+| ?60-89 ?| ?Stage two ?| ? Decreased GFR ? + --+ --+ ------+| ?30-59 ?| ?Stage three ?| ? Stage three ? + --+ --+ ------+| ?15-29 ?| ?Stage four ? | ? Stage four ?+ ---+ ---+ -------+| ?<15 (or dialysis) ? ?| ?Stage five ? | ? Stage five ?+ ---+ ---+ -------+ *Each stage assumes the associated GFR level has been in effect for at least three months. ?Stages 1 to 5, with or without kidney disease, indicate chronic kidney disease. Notes: Determination of stages one and two (with eGFR >59mL/min/1.73 m2) requires estimation of kidney damage for at least three months as defined by structural or functional abnormalities of the kidney, manifested by either:Pathological abnormalities or Markers of kidney damage (including abnormalities in the composition of the blood or urine or abnormalities in imaging tests). Lab Interpretation Abnormal (test code = 35338-3) [facility] Test Item Value Reference Range Interpretation Comments MAGNESIUM (test code = 1945563573) 1.9 mg/dL 1.7-2.4 Lab Interpretation (test code = Normal 55439-9) [facility] Test Item Value Reference Range Interpretation Comments MAGNESIUM (test code = 5958392900) 1.9 mg/dL 1.7-2.4 Lab Interpretation (test code = Normal 31279-4) [facility] Test Item Value Reference Range Interpretation Comments MAGNESIUM (test code = 8702626510) 1.9 mg/dL 1.7-2.4 Lab Interpretation (test code = Normal 19444-3) [facility] WITHOUT [id number] 10:28:35 Test Item Value Reference Range Interpretation Comments WBC (test code = 6690-2) See_Comment [A utomated message] The system [employer] generated this result transmit derian reference range : 4.30 - 11.10 10*3/?L. The reference range was not used to interpret this result as normal/abnormal . RBC (test code = 789-8) See_Comment L [Au tomated message] The system [employer] generated this result transmit derian reference range : 3.93 - 5.25 10* 6/?L. The reference r jordyn was not used to interpret this result as normal/abnormal . HGB (test code = 718-7) 7.3 g/dL 11.6-15.0 L HCT (test code = 4544-3) 22.5 % 35.7-45.2 L MCH (test code = 785-6) 28.9 pg 25.9-32.8 MCV (test code = 787-2) 88.9 fL 80.6-95.5 MCHC (test code = 786-4) 32.4 g/dL 31.6-35.1 PLT (test code = 777-3) See_Comment [Au tomated message] The system [employer] generated this result transmit derian reference range : 166 - 358 10*3/?L. The reference range was not used to interpret this result as normal/abnormal . MPV (test code = 9.6 fL 9.5-12.9 44037-7) RDW-CV (test code = 13.9 % 12.0-15.5 788-0) RDW-SD (test code = 43.9 fL 39.0-49.9 89441-4) NRBC x10^3 (test code = <0.01 See_Comment [Au tomated message] [id number]) The system [employer] generated this result transmit derian reference range : 10*3/?L. The reference range was not used to interpret this result as normal/abnormal . NRBC/100 WBC (test code See_Comment [Au tomated message] = 1026920545) The system [facility] generated this result transmit derian reference range : 0.0 - 10.0 /100 WBC s. The reference r jordyn was not used to interpret this result as normal/abnormal . IPF % (test code = 3485355393) Lab Interpretation (test Abnormal code = 81661-6) [facility] WITHOUT [id number] 10:28:35 Test Item Value Reference Range Interpretation Comments WBC (test code = 6690-2) See_Comment [A utomated message] The system [employer] generated this result transmit derian reference range : 4.30 - 11.10 10*3/?L. The reference range was not used to interpret this result as normal/abnormal . RBC (test code = 789-8) See_Comment L [Au tomated message] The system [employer] generated this result transmit derian reference range : 3.93 - 5.25 10* 6/?L. The reference r jordyn was not used to interpret this result as normal/abnormal . HGB (test code = 718-7) 7.3 g/dL 11.6-15.0 L HCT (test code = 4544-3) 22.5 % 35.7-45.2 L MCH (test code = 785-6) 28.9 pg 25.9-32.8 MCV (test code = 787-2) 88.9 fL 80.6-95.5 MCHC (test code = 786-4) 32.4 g/dL 31.6-35.1 PLT (test code = 777-3) See_Comment [Au tomated message] The system [employer] generated this result transmit derian reference range : 166 - 358 10*3/?L. The reference range was not used to interpret this result as normal/abnormal . MPV (test code = 9.6 fL 9.5-12.9 46618-6) RDW-CV (test code = 13.9 % 12.0-15.5 788-0) RDW-SD (test code = 43.9 fL 39.0-49.9 60513-1) NRBC x10^3 (test code = <0.01 See_Comment [Au tomated message] [id number]) The system [employer] generated this result transmit derian reference range : 10*3/?L. The reference range was not used to interpret this result as normal/abnormal . NRBC/100 WBC (test code See_Comment [Au tomated message] = 9465987476) The system [employer] generated this result transmit derian reference range : 0.0 - 10.0 /100 WBC s. The reference r jordyn was not used to interpret this result as normal/abnormal . IPF % (test code = 4930325676) Lab Interpretation (test Abnormal code = 49799-9) [facility]SE (AUTOMATED)2021-11-13 02:11:52 Test Item Value Reference Range Interpretation Comments POCT GLU (test code = 94 mg/dL 70-110 Notifi ed Provider [id number]) Lab Interpretation (test Normal code = 11789-3) [facility] GLUCOSE (AUTOMATED)2021-11-13 02:11:52 Test Item Value Reference Range Interpretation Comments POCT GLU (test code = 94 mg/dL 70-110 Notifi ed Provider [id number]) Lab Interpretation (test Normal code = 34289-8) [facility] WITHOUT [id number] 01:15:40 Test Item Value Reference Range Interpretation Comments WBC (test code = 6690-2) See_Comment [A utomated message] The system [employer] generated this result transmit derian reference range : 4.30 - 11.10 10*3/?L. The reference range was not used to interpret this result as normal/abnormal . RBC (test code = 789-8) See_Comment L [Au tomated message] The system [employer] generated this result transmit derian reference range : 3.93 - 5.25 10* 6/?L. The reference r jordyn was not used to interpret this result as normal/abnormal . HGB (test code = 718-7) 7.9 g/dL 11.6-15.0 L HCT (test code = 4544-3) 23.8 % 35.7-45.2 L MCH (test code = 785-6) 29.2 pg 25.9-32.8 MCV (test code = 787-2) 87.8 fL 80.6-95.5 MCHC (test code = 786-4) 33.2 g/dL 31.6-35.1 PLT (test code = 777-3) See_Comment [Au tomated message] The system [facility] generated this result transmit derian reference range : 166 - 358 10*3/?L. The reference range was not used to interpret this result as normal/abnormal . MPV (test code = 9.5 fL 9.5-12.9 05316-4) RDW-CV (test code = 13.9 % 12.0-15.5 788-0) RDW-SD (test code = 42.9 fL 39.0-49.9 65410-3) NRBC x10^3 (test code = <0.01 See_Comment [Au tomated message] [id number]) The system [employer] generated this result transmit derian reference range : 10*3/?L. The reference range was not used to interpret this result as normal/abnormal . NRBC/100 WBC (test code See_Comment [Au tomated message] = 2218756717) The system [facility] generated this result transmit derian reference range : 0.0 - 10.0 /100 WBC s. The reference r jordyn was not used to interpret this result as normal/abnormal . IPF % (test code = 2399957122) Lab Interpretation (test Abnormal code = 88461-5) [facility] WITHOUT [id number] 01:15:40 Test Item Value Reference Range Interpretation Comments WBC (test code = 6690-2) See_Comment [A utomated message] The system [employer] generated this result transmit derian reference range : 4.30 - 11.10 10*3/?L. The reference range was not used to interpret this result as normal/abnormal . RBC (test code = 789-8) See_Comment L [Au tomated message] The system [employer] generated this result transmit derian reference range : 3.93 - 5.25 10* 6/?L. The reference r jordyn was not used to interpret this result as normal/abnormal . HGB (test code = 718-7) 7.9 g/dL 11.6-15.0 L HCT (test code = 4544-3) 23.8 % 35.7-45.2 L MCH (test code = 785-6) 29.2 pg 25.9-32.8 MCV (test code = 787-2) 87.8 fL 80.6-95.5 MCHC (test code = 786-4) 33.2 g/dL 31.6-35.1 PLT (test code = 777-3) See_Comment [Au tomated message] The system [employer] generated this result transmit derian reference range : 166 - 358 10*3/?L. The reference range was not used to interpret this result as normal/abnormal . MPV (test code = 9.5 fL 9.5-12.9 59633-8) RDW-CV (test code = 13.9 % 12.0-15.5 788-0) RDW-SD (test code = 42.9 fL 39.0-49.9 66343-3) NRBC x10^3 (test code = <0.01 See_Comment [Au tomated message] [id number]) The system [employer] generated this result transmit derian reference range : 10*3/?L. The reference range was not used to interpret this result as normal/abnormal . NRBC/100 WBC (test code See_Comment [Au tomated message] = 8909030869) The system [employer] generated this result transmit derian reference range : 0.0 - 10.0 /100 WBC s. The reference r jordyn was not used to interpret this result as normal/abnormal . IPF % (test code = 3355718860) Lab Interpretation (test Abnormal code = 63797-8) [facility] GLUCOSE (AUTOMATED)2021-11-12 18:59:31 Test Item Value Reference Range Interpretation Comments POCT GLU (test code = 6202970478) 77 mg/dL 70-110 Lab Interpretation (test code = Normal 16586-4) [facility] GLUCOSE (AUTOMATED)2021-11-12 18:59:31 Test Item Value Reference Range Interpretation Comments POCT GLU (test code = 3137450307) 77 mg/dL 70-110 Lab Interpretation (test code = Normal 60563-6) [facility] WITHOUT [id number] 17:14:02 Test Item Value Reference Range Interpretation Comments WBC (test code = 6690-2) See_Comment [A utomated message] The system [employer] generated this result transmit derian reference range : 4.30 - 11.10 10*3/?L. The reference range was not used to interpret this result as normal/abnormal . RBC (test code = 789-8) See_Comment L [Au tomated message] The system [employer] generated this result transmit derian reference range : 3.93 - 5.25 10* 6/?L. The reference r jordyn was not used to interpret this result as normal/abnormal . HGB (test code = 718-7) 8.5 g/dL 11.6-15.0 L HCT (test code = 4544-3) 25.6 % 35.7-45.2 L MCH (test code = 785-6) 29.6 pg 25.9-32.8 MCV (test code = 787-2) 89.2 fL 80.6-95.5 MCHC (test code = 786-4) 33.2 g/dL 31.6-35.1 PLT (test code = 777-3) See_Comment [Au tomated message] The system [employer] generated this result transmit derian reference range : 166 - 358 10*3/?L. The reference range was not used to interpret this result as normal/abnormal . MPV (test code = 9.3 fL 9.5-12.9 L 33158-2) RDW-CV (test code = 13.9 % 12.0-15.5 788-0) RDW-SD (test code = 43.9 fL 39.0-49.9 13296-7) NRBC x10^3 (test code = <0.01 See_Comment [Au tomated message] 6778000253) The system [employer] generated this result transmit derian reference range : 10*3/?L. The reference range was not used to interpret this result as normal/abnormal . NRBC/100 WBC (test code See_Comment [Au tomated message] = 2069116836) The system [employer] generated this result transmit derian reference range : 0.0 - 10.0 /100 WBC s. The reference r jordyn was not used to interpret this result as normal/abnormal . IPF % (test code = 6695946612) Lab Interpretation (test Abnormal code = 75705-4) [facility] WITHOUT [id number] 17:14:02 Test Item Value Reference Range Interpretation Comments WBC (test code = 6690-2) See_Comment [A utomated message] The system [employer] generated this result transmit derian reference range : 4.30 - 11.10 10*3/?L. The reference range was not used to interpret this result as normal/abnormal . RBC (test code = 789-8) See_Comment L [Au tomated message] The system [employer] generated this result transmit derian reference range : 3.93 - 5.25 10* 6/?L. The reference r jordyn was not used to interpret this result as normal/abnormal . HGB (test code = 718-7) 8.5 g/dL 11.6-15.0 L HCT (test code = 4544-3) 25.6 % 35.7-45.2 L MCH (test code = 785-6) 29.6 pg 25.9-32.8 MCV (test code = 787-2) 89.2 fL 80.6-95.5 MCHC (test code = 786-4) 33.2 g/dL 31.6-35.1 PLT (test code = 777-3) See_Comment [Au tomated message] The system [employer] generated this result transmit derian reference range : 166 - 358 10*3/?L. The reference range was not used to interpret this result as normal/abnormal . MPV (test code = 9.3 fL 9.5-12.9 L 45279-5) RDW-CV (test code = 13.9 % 12.0-15.5 788-0) RDW-SD (test code = 43.9 fL 39.0-49.9 16164-0) NRBC x10^3 (test code = <0.01 See_Comment [Au tomated message] 4501664325) The system [employer] generated this result transmit derian reference range : 10*3/?L. The reference range was not used to interpret this result as normal/abnormal . NRBC/100 WBC (test code See_Comment [Au tomated message] = 8472526384) The system [employer] generated this result transmit derian reference range : 0.0 - 10.0 /100 WBC s. The reference r jordyn was not used to interpret this result as normal/abnormal . IPF % (test code = 0839502871) Lab Interpretation (test Abnormal code = 30959-2) [facility] GLUCOSE (AUTOMATED)2021-11-12 15:51:24 Test Item Value Reference Range Interpretation Comments POCT GLU (test code = 0986546438) 117 mg/dL 70-110 H Lab Interpretation (test code = Abnormal 81651-7) [facility] GLUCOSE (AUTOMATED)2021-11-12 15:51:24 Test Item Value Reference Range Interpretation Comments POCT GLU (test code = 5642729353) 117 mg/dL 70-110 H Lab Interpretation (test code = Abnormal 36123-1) [facility] Test Item Value Reference Range Interpretation Comments MAGNESIUM (test code = 2352956824) 2.0 mg/dL 1.7-2.4 Lab Interpretation (test code = Normal 61024-2) [facility] METABOLIC PANEL (NA, K, CL, CO2, GLUCOSE, BUN, CREATININE, CA)2021-11-12 13:51:34 Test Item Value Reference Range Interpretation Comments NA (test code = 138 mmol/L 135-145 4295497579) K (test code = 3.7 mmol/L 3.5-5.0 2140879886) CL (test code = 108 mmol/L 98-108 8183113874) CO2 TOTAL (test code = 28 mmol/L 23-31 1696896405) AGAP (test code = 2-16 9499398649) BUN (test code = 11 mg/dL 7-23 8613459875) GLUCOSE (test code = 91 mg/dL 70-110 6765271125) CREATININE (test code = 0.93 mg/dL 0.50-1.04 3607699118) CALCIUM (test code = 8.5 mg/dL 8.6-10.6 L 2437119790) eGFR (test code = mL/min/1.73m2 3189305870) ALYSSA (test code = ALYSSA) Association of Glomerular Filtration Rate (GFR) and Staging of Kidney Disease* + --+ --+ ------+| GFR (mL/min/1.73 m2) ?| With Kidney Damage ?| ?Without Kidney Damage+ --------+ --------+ +| ?>90 ?| ?Stage one ?| ? Normal ?+ ---+ ---+ -------+| ?60-89 ?| ?Stage two ?| ? Decreased GFR ? + --+ --+ ------+| ?30-59 ?| ?Stage three ?| ? Stage three ? + --+ --+ ------+| ?15-29 ?| ?Stage four ? | ? Stage four ?+ ---+ ---+ -------+| ?<15 (or dialysis) ? ?| ?Stage five ? | ? Stage five ?+ ---+ ---+ -------+ *Each stage assumes the associated GFR level has been in effect for at least three months. ?Stages 1 to 5, with or without kidney disease, indicate chronic kidney disease. Notes: Determination of stages one and two (with eGFR >59mL/min/1.73 m2) requires estimation of kidney damage for at least three months as defined by structural or functional abnormalities of the kidney, manifested by either:Pathological abnormalities or Markers of kidney damage (including abnormalities in the composition of the blood or urine or abnormalities in imaging tests). Lab Interpretation Abnormal (test code = 83071-3) [facility]2022-03-18 13:51:34 Test Item Value Reference Range Interpretation Comments MAGNESIUM (test code = 2600273844) 2.0 mg/dL 1.7-2.4 Lab Interpretation (test code = Normal 56701-6) [facility] METABOLIC PANEL (NA, K, CL, CO2, GLUCOSE, BUN, CREATININE, CA)2021-11-12 13:51:34 Test Item Value Reference Range Interpretation Comments NA (test code = 138 mmol/L 135-145 0273603814) K (test code = 3.7 mmol/L 3.5-5.0 9590499946) CL (test code = 108 mmol/L 98-108 5034594857) CO2 TOTAL (test code = 28 mmol/L 23-31 2344989613) AGAP (test code = 2-16 5897949285) BUN (test code = 11 mg/dL 7-23 0440784072) GLUCOSE (test code = 91 mg/dL 70-110 7858040589) CREATININE (test code = 0.93 mg/dL 0.50-1.04 2534056168) CALCIUM (test code = 8.5 mg/dL 8.6-10.6 L 8351218576) eGFR (test code = mL/min/1.73m2 3359007642) ALYSSA (test code = ALYSSA) Association of Glomerular Filtration Rate (GFR) and Staging of Kidney Disease* + --+ --+ ------+| GFR (mL/min/1.73 m2) ?| With Kidney Damage ?| ?Without Kidney Damage+ --------+ --------+ +| ?>90 ?| ?Stage one ?| ? Normal ?+ ---+ ---+ -------+| ?60-89 ?| ?Stage two ?| ? Decreased GFR ? + --+ --+ ------+| ?30-59 ?| ?Stage three ?| ? Stage three ? + --+ --+ ------+| ?15-29 ?| ?Stage four ? | ? Stage four ?+ ---+ ---+ -------+| ?<15 (or dialysis) ? ?| ?Stage five ? | ? Stage five ?+ ---+ ---+ -------+ *Each stage assumes the associated GFR level has been in effect for at least three months. ?Stages 1 to 5, with or without kidney disease, indicate chronic kidney disease. Notes: Determination of stages one and two (with eGFR >59mL/min/1.73 m2) requires estimation of kidney damage for at least three months as defined by structural or functional abnormalities of the kidney, manifested by either:Pathological abnormalities or Markers of kidney damage (including abnormalities in the composition of the blood or urine or abnormalities in imaging tests). Lab Interpretation Abnormal (test code = 49966-2) [facility] WITH [id number] 07:28:30 Test Item Value Reference Range Interpretation Comments WBC (test code = See_Comment [Automated 6690-2) message] The sy stem which generated this result transmitted reference range : 4.30 - 11.10 10*3/?L. The reference range was not used to interpret this result as normal/abnormal . RBC (test code = See_Comment L [Automated 789-8) message] The sy stem which generated this result transmitted reference range : 3.93 - 5.25 10*6/?L. The reference range was not used to interpret this result as normal/abnormal . HGB (test code = 7.7 g/dL 11.6-15.0 L 718-7) HCT (test code = 23.5 % 35.7-45.2 L 4544-3) MCV (test code = 88.0 fL 80.6-95.5 787-2) MCH (test code = 28.8 pg 25.9-32.8 785-6) MCHC (test code = 32.8 g/dL 31.6-35.1 786-4) RDW-SD (test code = 42.5 fL 39.0-49.9 85748-1) RDW-CV (test code = 13.8 % 12.0-15.5 788-0) PLT (test code = See_Comment [Automated 777-3) message] The sy stem which generated this result transmitted reference range : 166 - 358 10*3/ ?L. The reference r jordyn was not used to interpret this result as normal/abnormal . MPV (test code = 9.3 fL 9.5-12.9 L 25802-2) NRBC/100 WBC (test See_Comment [Automat ed code = 7711826422) message] The system which generated this result transmitted reference range : 0.0 - 10.0 /100 WBCs. The refer ence range was not u sed to interpret th is result as normal/abnormal . NRBC x10^3 (test code <0.01 See_Comment [Auto mated = 7710398781) message] The s ystem which generated this result transmitted reference range : 10*3/?L. The reference range was not used to interpret this result as normal/abnormal . GRAN MAT (NEUT) % 73.7 % (test code = 770-8) IMM GRAN % (test code 0.50 % = 4243559573) LYMPH % (test code = 18.8 % 736-9) MONO % (test code = 4.5 % 5905-5) EOS % (test code = 2.2 % 713-8) BASO % (test code = 0.3 % 706-2) GRAN MAT x10^3(ANC) 7.17 10*3/uL 1.88-7.09 H (test code = 6809914265) IMM GRAN x10^3 (test 0.05 10*3/uL 0.00-0.06 code = 3531522999) LYMPH x10^3 (test code 1.83 10*3/uL 1.32-3.29 = 731-0) MONO x10^3 (test code 0.44 10*3/uL 0.33-0.92 = 742-7) EOS x10^3 (test code = 0.21 10*3/uL 0.03-0.39 711-2) BASO x10^3 (test code 0.03 10*3/uL 0.01-0.07 = 704-7) Lab Interpretation Abnormal (test code = 71441-3) [facility] WITH [id number] 07:28:30 Test Item Value Reference Range Interpretation Comments WBC (test code = See_Comment [Automated 1490-2) message] The sy stem which generated this result transmitted reference range : 4.30 - 11.10 10*3/?L. The reference range was not used to interpret this result as normal/abnormal . RBC (test code = See_Comment L [Automated 939-8) message] The sy stem which generated this result transmitted reference range : 3.93 - 5.25 10*6/?L. The reference range was not used to interpret this result as normal/abnormal . HGB (test code = 7.7 g/dL 11.6-15.0 L 718-7) HCT (test code = 23.5 % 35.7-45.2 L 4544-3) MCV (test code = 88.0 fL 80.6-95.5 787-2) MCH (test code = 28.8 pg 25.9-32.8 785-6) MCHC (test code = 32.8 g/dL 31.6-35.1 786-4) RDW-SD (test code = 42.5 fL 39.0-49.9 23564-3) RDW-CV (test code = 13.8 % 12.0-15.5 788-0) PLT (test code = See_Comment [Automated 777-3) message] The sy stem which generated this result transmitted reference range : 166 - 358 10*3/ ?L. The reference r jordyn was not used to interpret this result as normal/abnormal . MPV (test code = 9.3 fL 9.5-12.9 L 68472-1) NRBC/100 WBC (test See_Comment [Automat ed code = 8288966448) message] The system which generated this result transmitted reference range : 0.0 - 10.0 /100 WBCs. The refer ence range was not u sed to interpret th is result as normal/abnormal . NRBC x10^3 (test code <0.01 See_Comment [Auto mated = 3298972453) message] The s ystem which generated this result transmitted reference range : 10*3/?L. The reference range was not used to interpret this result as normal/abnormal . GRAN MAT (NEUT) % 73.7 % (test code = 770-8) IMM GRAN % (test code 0.50 % = 3737297442) LYMPH % (test code = 18.8 % 736-9) MONO % (test code = 4.5 % 5905-5) EOS % (test code = 2.2 % 713-8) BASO % (test code = 0.3 % 706-2) GRAN MAT x10^3(ANC) 7.17 10*3/uL 1.88-7.09 H (test code = 3624367628) IMM GRAN x10^3 (test 0.05 10*3/uL 0.00-0.06 code = 2929078845) LYMPH x10^3 (test code 1.83 10*3/uL 1.32-3.29 = 731-0) MONO x10^3 (test code 0.44 10*3/uL 0.33-0.92 = 742-7) EOS x10^3 (test code = 0.21 10*3/uL 0.03-0.39 711-2) BASO x10^3 (test code 0.03 10*3/uL 0.01-0.07 = 704-7) Lab Interpretation Abnormal (test code = 58397-2) [facility] WITH [id number] 07:28:30 Test Item Value Reference Range Interpretation Comments WBC (test code = See_Comment [Automated 6490-2) message] The sy stem which generated this result transmitted reference range : 4.30 - 11.10 10*3/?L. The reference range was not used to interpret this result as normal/abnormal . RBC (test code = See_Comment L [Automated 369-8) message] The sy stem which generated this result transmitted reference range : 3.93 - 5.25 10*6/?L. The reference range was not used to interpret this result as normal/abnormal . HGB (test code = 7.7 g/dL 11.6-15.0 L 718-7) HCT (test code = 23.5 % 35.7-45.2 L 4544-3) MCV (test code = 88.0 fL 80.6-95.5 787-2) MCH (test code = 28.8 pg 25.9-32.8 785-6) MCHC (test code = 32.8 g/dL 31.6-35.1 786-4) RDW-SD (test code = 42.5 fL 39.0-49.9 80471-0) RDW-CV (test code = 13.8 % 12.0-15.5 788-0) PLT (test code = See_Comment [Automated 777-3) message] The sy stem which generated this result transmitted reference range : 166 - 358 10*3/ ?L. The reference r jordyn was not used to interpret this result as normal/abnormal . MPV (test code = 9.3 fL 9.5-12.9 L 20800-5) NRBC/100 WBC (test See_Comment [Automat ed code = 2803927023) message] The system which generated this result transmitted reference range : 0.0 - 10.0 /100 WBCs. The refer ence range was not u sed to interpret th is result as normal/abnormal . NRBC x10^3 (test code <0.01 See_Comment [Auto mated = 6889489008) message] The s ystem which generated this result transmitted reference range : 10*3/?L. The reference range was not used to interpret this result as normal/abnormal . GRAN MAT (NEUT) % 73.7 % (test code = 770-8) IMM GRAN % (test code 0.50 % = 5531713769) LYMPH % (test code = 18.8 % 736-9) MONO % (test code = 4.5 % 5905-5) EOS % (test code = 2.2 % 713-8) BASO % (test code = 0.3 % 706-2) GRAN MAT x10^3(ANC) 7.17 10*3/uL 1.88-7.09 H (test code = 1500601534) IMM GRAN x10^3 (test 0.05 10*3/uL 0.00-0.06 code = 8707358330) LYMPH x10^3 (test code 1.83 10*3/uL 1.32-3.29 = 731-0) MONO x10^3 (test code 0.44 10*3/uL 0.33-0.92 = 742-7) EOS x10^3 (test code = 0.21 10*3/uL 0.03-0.39 711-2) BASO x10^3 (test code 0.03 10*3/uL 0.01-0.07 = 704-7) Lab Interpretation Abnormal (test code = 57290-8) [facility] [id number] 04:05:01 Test Item Value Reference Range Interpretation Comments ABO & RH (test code O POSITIVE Performe d at [facility] = 20) Laboratory [facility] Blood [facility] [address] [place] [id number] Free: [phone] A No. [id number] IAT (test code = Negative Performed a t [facility] 1185) Laboratory [facility] Blood [address] [id number] Free: [phone] A No. [id number] [facility] [id number] 04:05:01 Test Item Value Reference Range Interpretation Comments ABO & RH (test code O POSITIVE Performe d at [facility] = 20) Laboratory [facility] Blood [address] [address]Iwmx Free: [phone] A No. [id number] IAT (test code = Negative Performed a t [facility] 1185) Laboratory [facility] Blood [address] [address]Cwzr Free: [phone] A No. [id number] [facility] [id number] 04:05:01 Test Item Value Reference Range Interpretation Comments ABO & RH (test code O POSITIVE Performe d at [facility] = 20) Laboratory [facility] Blood [address] [address]Nihv Free: [phone] A No. [id number] IAT (test code = Negative Performed a t [facility] 1185) Laboratory [facility] Blood [facility] [place] [address]Impp Free: [phone] A No. [id number] [facility] WITHOUT [id number] 02:41:31 Test Item Value Reference Range Interpretation Comments WBC (test code = 6690-2) See_Comment [A utomated message] The system [employer] generated this result transmit derian reference range : 4.30 - 11.10 10*3/?L. The reference range was not used to interpret this result as normal/abnormal . RBC (test code = 789-8) See_Comment L [Au tomated message] The system [employer] generated this result transmit derian reference range : 3.93 - 5.25 10* 6/?L. The reference r jordyn was not used to interpret this result as normal/abnormal . HGB (test code = 718-7) 8.9 g/dL 11.6-15.0 L HCT (test code = 4544-3) 27.0 % 35.7-45.2 L MCH (test code = 785-6) 29.2 pg 25.9-32.8 MCV (test code = 787-2) 88.5 fL 80.6-95.5 MCHC (test code = 786-4) 33.0 g/dL 31.6-35.1 PLT (test code = 777-3) See_Comment [Au tomated message] The system [employer] generated this result transmit derian reference range : 166 - 358 10*3/?L. The reference range was not used to interpret this result as normal/abnormal . MPV (test code = 9.6 fL 9.5-12.9 16514-9) RDW-CV (test code = 13.6 % 12.0-15.5 788-0) RDW-SD (test code = 42.6 fL 39.0-49.9 29843-8) NRBC x10^3 (test code = <0.01 See_Comment [Au tomated message] [id number]) The system [employer] generated this result transmit derian reference range : 10*3/?L. The reference range was not used to interpret this result as normal/abnormal . NRBC/100 WBC (test code See_Comment [Au tomated message] = 1579747724) The system [facility] generated this result transmit derian reference range : 0.0 - 10.0 /100 WBC s. The reference r jordyn was not used to interpret this result as normal/abnormal . IPF % (test code = 9452928564) Lab Interpretation (test Abnormal code = 69381-2) [facility] WITHOUT [id number] 02:41:31 Test Item Value Reference Range Interpretation Comments WBC (test code = 6690-2) See_Comment [A utomated message] The system [employer] generated this result transmit derian reference range : 4.30 - 11.10 10*3/?L. The reference range was not used to interpret this result as normal/abnormal . RBC (test code = 789-8) See_Comment L [Au tomated message] The system [employer] generated this result transmit derian reference range : 3.93 - 5.25 10* 6/?L. The reference r jordyn was not used to interpret this result as normal/abnormal . HGB (test code = 718-7) 8.9 g/dL 11.6-15.0 L HCT (test code = 4544-3) 27.0 % 35.7-45.2 L MCH (test code = 785-6) 29.2 pg 25.9-32.8 MCV (test code = 787-2) 88.5 fL 80.6-95.5 MCHC (test code = 786-4) 33.0 g/dL 31.6-35.1 PLT (test code = 777-3) See_Comment [Au tomated message] The system [employer] generated this result transmit derian reference range : 166 - 358 10*3/?L. The reference range was not used to interpret this result as normal/abnormal . MPV (test code = 9.6 fL 9.5-12.9 10726-6) RDW-CV (test code = 13.6 % 12.0-15.5 788-0) RDW-SD (test code = 42.6 fL 39.0-49.9 56598-1) NRBC x10^3 (test code = <0.01 See_Comment [Au tomated message] [id number]) The system [employer] generated this result transmit derian reference range : 10*3/?L. The reference range was not used to interpret this result as normal/abnormal . NRBC/100 WBC (test code See_Comment [Au tomated message] = 0121751632) The system [facility] generated this result transmit derian reference range : 0.0 - 10.0 /100 WBC s. The reference r jordyn was not used to interpret this result as normal/abnormal . IPF % (test code = 2610275784) Lab Interpretation (test Abnormal code = 71289-1) [facility] GLUCOSE (AUTOMATED)2021-11-12 02:13:04 Test Item Value Reference Range Interpretation Comments POCT GLU (test code = 3523670568) 108 mg/dL 70-110 Lab Interpretation (test code = Normal 18984-5) [facility] GLUCOSE (AUTOMATED)2021-11-12 02:13:04 Test Item Value Reference Range Interpretation Comments POCT GLU (test code = 1392918211) 108 mg/dL 70-110 Lab Interpretation (test code = Normal 84482-8) [facility] WITHOUT [id number] 22:01:09 Test Item Value Reference Range Interpretation Comments WBC (test code = 6690-2) See_Comment [A utomated message] The system [employer] generated this result transmit derian reference range : 4.30 - 11.10 10*3/?L. The reference range was not used to interpret this result as normal/abnormal . RBC (test code = 789-8) See_Comment L [Au tomated message] The system [employer] generated this result transmit derian reference range : 3.93 - 5.25 10* 6/?L. The reference r jordyn was not used to interpret this result as normal/abnormal . HGB (test code = 718-7) 9.5 g/dL 11.6-15.0 L HCT (test code = 4544-3) 28.6 % 35.7-45.2 L MCH (test code = 785-6) 29.6 pg 25.9-32.8 MCV (test code = 787-2) 89.1 fL 80.6-95.5 MCHC (test code = 786-4) 33.2 g/dL 31.6-35.1 PLT (test code = 777-3) See_Comment [Au tomated message] The system [employer] generated this result transmit derian reference range : 166 - 358 10*3/?L. The reference range was not used to interpret this result as normal/abnormal . MPV (test code = 9.5 fL 9.5-12.9 58476-9) RDW-CV (test code = 13.7 % 12.0-15.5 788-0) RDW-SD (test code = 43.3 fL 39.0-49.9 88056-4) NRBC x10^3 (test code = <0.01 See_Comment [Au tomated message] [id number]) The system [employer] generated this result transmit derian reference range : 10*3/?L. The reference range was not used to interpret this result as normal/abnormal . NRBC/100 WBC (test code See_Comment [Au tomated message] = 7253260477) The system [facility] generated this result transmit derian reference range : 0.0 - 10.0 /100 WBC s. The reference r jordyn was not used to interpret this result as normal/abnormal . IPF % (test code = 2396514131) Lab Interpretation (test Abnormal code = 70569-3) [facility] WITHOUT [id number] 22:01:09 Test Item Value Reference Range Interpretation Comments WBC (test code = 6690-2) See_Comment [A utomated message] The system [employer] generated this result transmit derian reference range : 4.30 - 11.10 10*3/?L. The reference range was not used to interpret this result as normal/abnormal . RBC (test code = 789-8) See_Comment L [Au tomated message] The system [employer] generated this result transmit derian reference range : 3.93 - 5.25 10* 6/?L. The reference r jordyn was not used to interpret this result as normal/abnormal . HGB (test code = 718-7) 9.5 g/dL 11.6-15.0 L HCT (test code = 4544-3) 28.6 % 35.7-45.2 L MCH (test code = 785-6) 29.6 pg 25.9-32.8 MCV (test code = 787-2) 89.1 fL 80.6-95.5 MCHC (test code = 786-4) 33.2 g/dL 31.6-35.1 PLT (test code = 777-3) See_Comment [Au tomated message] The system [employer] generated this result transmit derian reference range : 166 - 358 10*3/?L. The reference range was not used to interpret this result as normal/abnormal . MPV (test code = 9.5 fL 9.5-12.9 62552-9) RDW-CV (test code = 13.7 % 12.0-15.5 788-0) RDW-SD (test code = 43.3 fL 39.0-49.9 36567-1) NRBC x10^3 (test code = <0.01 See_Comment [Au tomated message] 5996230317) The system [employer] generated this result transmit derian reference range : 10*3/?L. The reference range was not used to interpret this result as normal/abnormal . NRBC/100 WBC (test code See_Comment [Au tomated message] = 4667831402) The system [employer] generated this result transmit derian reference range : 0.0 - 10.0 /100 WBC s. The reference r jordyn was not used to interpret this result as normal/abnormal . IPF % (test code = 0527305218) Lab Interpretation (test Abnormal code = 22388-2) [facility] GLUCOSE (AUTOMATED)2021-11-11 21:31:28 Test Item Value Reference Range Interpretation Comments POCT GLU (test code = 118 mg/dL 70-110 H Notifi ed Provider [id number]) Lab Interpretation (test Abnormal code = 35888-9) [facility] GLUCOSE (AUTOMATED)2021-11-11 21:31:28 Test Item Value Reference Range Interpretation Comments POCT GLU (test code = 118 mg/dL 70-110 H Notifi ed Provider [id number]) Lab Interpretation (test Abnormal code = 51110-8) [facility] GLUCOSE (AUTOMATED)2021-11-11 16:40:03 Test Item Value Reference Range Interpretation Comments POCT GLU (test code = 3244921980) 99 mg/dL 70-110 Lab Interpretation (test code = Normal 43752-3) [facility] GLUCOSE (AUTOMATED)2021-11-11 16:40:03 Test Item Value Reference Range Interpretation Comments POCT GLU (test code = 8016957653) 99 mg/dL 70-110 Lab Interpretation (test code = Normal 63115-0) [facility] GLUCOSE (AUTOMATED)2021-11-11 14:12:30 Test Item Value Reference Range Interpretation Comments POCT GLU (test code = 2651833193) 123 mg/dL 70-110 H Lab Interpretation (test code = Abnormal 10309-2) [facility] 14:12:30 Test Item Value Reference Range Interpretation Comments POCT GLU (test code = 6843329329) 123 mg/dL 70-110 H Lab Interpretation (test code = Abnormal 50233-8) [facility]73163[facility] (ALB,T.PRO,BILI T,BU/BC,ALT,AST,ALK PHOS)2021-11-11 11:33:55 Test Item Value Reference Range Interpretation Comments TOTAL BILI (test code = 6315519153) 0.8 mg/dL 0.1-1.1 BILI UNCON (test code = 4431453321) 0.6 mg/dL 0.1-1.1 BILI CONJ (test code = 0780298369) 0.0 mg/dL 0.0-0.3 T PROTEIN (test code = 6027489421) 5.4 g/dL 6.3-8.2 L ALBUMIN (test code = 2315695834) 2.8 g/dL 3.5-5.0 L ALK PHOS (test code = 8722265894) 48 U/L 34-122 ALTv (test code = 1742-6) 10 U/L 5-35 AST(SGOT) (test code = 6632947783) 21 U/L 13-40 Lab Interpretation (test code = Abnormal 36847-7) [facility] 11:33:55 Test Item Value Reference Range Interpretation Comments MAGNESIUM (test code = 1022925091) 2.0 mg/dL 1.7-2.4 Lab Interpretation (test code = Normal 19375-3) [facility] (NA, K, CL, CO2, GLUCOSE, BUN, CREATININE, CA)2021-11-11 11:33:55 Test Item Value Reference Range Interpretation Comments NA (test code = 139 mmol/L 135-145 2349314639) K (test code = 3.8 mmol/L 3.5-5.0 3520456963) CL (test code = 108 mmol/L 98-108 1337945656) CO2 TOTAL (test code = 30 mmol/L 23-31 4854525859) AGAP (test code = 2-16 L 2174553119) BUN (test code = 9 mg/dL 7-23 3625040213) GLUCOSE (test code = 101 mg/dL 70-110 9549675863) CREATININE (test code = 0.96 mg/dL 0.50-1.04 1074804559) CALCIUM (test code = 8.6 mg/dL 8.6-10.6 7427948998) eGFR (test code = mL/min/1.73m2 5989396991) ALYSSA (test code = ALYSSA) Association of Glomerular Filtration Rate (GFR) and Staging of Kidney Disease* + --+ --+ ------+| GFR (mL/min/1.73 m2) ?| With Kidney Damage ?| ?Without Kidney Damage+ --------+ --------+ +| ?>90 ?| ?Stage one ?| ? Normal ?+ ---+ ---+ -------+| ?60-89 ?| ?Stage two ?| ? Decreased GFR ? + --+ --+ ------+| ?30-59 ?| ?Stage three ?| ? Stage three ? + --+ --+ ------+| ?15-29 ?| ?Stage four ? | ? Stage four ?+ ---+ ---+ -------+| ?<15 (or dialysis) ? ?| ?Stage five ? | ? Stage five ?+ ---+ ---+ -------+ *Each stage assumes the associated GFR level has been in effect for at least three months. ?Stages 1 to 5, with or without kidney disease, indicate chronic kidney disease. Notes: Determination of stages one and two (with eGFR >59mL/min/1.73 m2) requires estimation of kidney damage for at least three months as defined by structural or functional abnormalities of the kidney, manifested by either:Pathological abnormalities or Markers of kidney damage (including abnormalities in the composition of the blood or urine or abnormalities in imaging tests). Lab Interpretation Abnormal (test code = 55252-5) [facility]64452[facility] (ALB,T.PRO,BILI T,BU/BC,ALT,AST,ALK PHOS)2021-11-11 11:33:55 Test Item Value Reference Range Interpretation Comments TOTAL BILI (test code = 6446395025) 0.8 mg/dL 0.1-1.1 BILI UNCON (test code = 8682516101) 0.6 mg/dL 0.1-1.1 BILI CONJ (test code = 4083869369) 0.0 mg/dL 0.0-0.3 T PROTEIN (test code = 7132806384) 5.4 g/dL 6.3-8.2 L ALBUMIN (test code = 3818775876) 2.8 g/dL 3.5-5.0 L ALK PHOS (test code = 1780894758) 48 U/L 34-122 ALTv (test code = 1742-6) 10 U/L 5-35 AST(SGOT) (test code = 8511756233) 21 U/L 13-40 Lab Interpretation (test code = Abnormal 47692-2) [facility] 11:33:55 Test Item Value Reference Range Interpretation Comments MAGNESIUM (test code = 1110188980) 2.0 mg/dL 1.7-2.4 Lab Interpretation (test code = Normal 64113-5) [facility] METABOLIC PANEL (NA, K, CL, CO2, GLUCOSE, BUN, CREATININE, CA)2021-11-11 11:33:55 Test Item Value Reference Range Interpretation Comments NA (test code = 139 mmol/L 135-145 8464720568) K (test code = 3.8 mmol/L 3.5-5.0 6510918826) CL (test code = 108 mmol/L 98-108 1835206544) CO2 TOTAL (test code = 30 mmol/L 23-31 2888291564) AGAP (test code = 2-16 L 3749341604) BUN (test code = 9 mg/dL 7-23 0831049548) GLUCOSE (test code = 101 mg/dL 70-110 2685724761) CREATININE (test code = 0.96 mg/dL 0.50-1.04 5354540551) CALCIUM (test code = 8.6 mg/dL 8.6-10.6 7109584732) eGFR (test code = mL/min/1.73m2 1132402511) ALYSSA (test code = ALYSSA) Association of Glomerular Filtration Rate (GFR) and Staging of Kidney Disease* + --+ --+ ------+| GFR (mL/min/1.73 m2) ?| With Kidney Damage ?| ?Without Kidney Damage+ --------+ --------+ +| ?>90 ?| ?Stage one ?| ? Normal ?+ ---+ ---+ -------+| ?60-89 ?| ?Stage two ?| ? Decreased GFR ? + --+ --+ ------+| ?30-59 ?| ?Stage three ?| ? Stage three ? + --+ --+ ------+| ?15-29 ?| ?Stage four ? | ? Stage four ?+ ---+ ---+ -------+| ?<15 (or dialysis) ? ?| ?Stage five ? | ? Stage five ?+ ---+ ---+ -------+ *Each stage assumes the associated GFR level has been in effect for at least three months. ?Stages 1 to 5, with or without kidney disease, indicate chronic kidney disease. Notes: Determination of stages one and two (with eGFR >59mL/min/1.73 m2) requires estimation of kidney damage for at least three months as defined by structural or functional abnormalities of the kidney, manifested by either:Pathological abnormalities or Markers of kidney damage (including abnormalities in the composition of the blood or urine or abnormalities in imaging tests). Lab Interpretation Abnormal (test code = 82080-1) [facility]90581[facility] (ALB,T.PRO,BILI T,BU/BC,ALT,AST,ALK PHOS)2021-11-11 11:33:55 Test Item Value Reference Range Interpretation Comments TOTAL BILI (test code = 7619907401) 0.8 mg/dL 0.1-1.1 BILI UNCON (test code = 0411925428) 0.6 mg/dL 0.1-1.1 BILI CONJ (test code = 4358857242) 0.0 mg/dL 0.0-0.3 T PROTEIN (test code = 2844326676) 5.4 g/dL 6.3-8.2 L ALBUMIN (test code = 8833449272) 2.8 g/dL 3.5-5.0 L ALK PHOS (test code = 5670013737) 48 U/L 34-122 ALTv (test code = 1742-6) 10 U/L 5-35 AST(SGOT) (test code = 8892897253) 21 U/L 13-40 Lab Interpretation (test code = Abnormal 98929-9) [facility] WITH [id number] 11:08:54 Test Item Value Reference Range Interpretation Comments WBC (test code = See_Comment [Automated 6690-2) message] The sy stem which generated this result transmitted reference range : 4.30 - 11.10 10*3/?L. The reference range was not used to interpret this result as normal/abnormal . RBC (test code = See_Comment L [Automated 789-8) message] The sy stem which generated this result transmitted reference range : 3.93 - 5.25 10*6/?L. The reference range was not used to interpret this result as normal/abnormal . HGB (test code = 8.6 g/dL 11.6-15.0 L 718-7) HCT (test code = 26.3 % 35.7-45.2 L 4544-3) MCV (test code = 87.7 fL 80.6-95.5 787-2) MCH (test code = 28.7 pg 25.9-32.8 785-6) MCHC (test code = 32.7 g/dL 31.6-35.1 786-4) RDW-SD (test code = 42.7 fL 39.0-49.9 77818-5) RDW-CV (test code = 13.8 % 12.0-15.5 788-0) PLT (test code = See_Comment [Automated 777-3) message] The sy stem which generated this result transmitted reference range : 166 - 358 10*3/ ?L. The reference r jordyn was not used to interpret this result as normal/abnormal . MPV (test code = 9.7 fL 9.5-12.9 54924-3) NRBC/100 WBC (test See_Comment [Automat ed code = 2917805895) message] The system which generated this result transmitted reference range : 0.0 - 10.0 /100 WBCs. The refer ence range was not u sed to interpret th is result as normal/abnormal . NRBC x10^3 (test code <0.01 See_Comment [Auto mated = 7045089357) message] The s ystem which generated this result transmitted reference range : 10*3/?L. The reference range was not used to interpret this result as normal/abnormal . GRAN MAT (NEUT) % 51.8 % (test code = 770-8) IMM GRAN % (test code 0.30 % = 9743063819) LYMPH % (test code = 36.6 % 736-9) MONO % (test code = 6.8 % 5905-5) EOS % (test code = 4.0 % 713-8) BASO % (test code = 0.5 % 706-2) GRAN MAT x10^3(ANC) 3.26 10*3/uL 1.88-7.09 (test code = 5900740078) IMM GRAN x10^3 (test <0.03 0.00-0.06 code = 1127009023) LYMPH x10^3 (test code 2.30 10*3/uL 1.32-3.29 = 731-0) MONO x10^3 (test code 0.43 10*3/uL 0.33-0.92 = 742-7) EOS x10^3 (test code = 0.25 10*3/uL 0.03-0.39 711-2) BASO x10^3 (test code 0.03 10*3/uL 0.01-0.07 = 704-7) Lab Interpretation Abnormal (test code = 23078-2) [facility] WITH [id number] 11:08:54 Test Item Value Reference Range Interpretation Comments WBC (test code = See_Comment [Automated 1390-2) message] The sy stem which generated this result transmitted reference range : 4.30 - 11.10 10*3/?L. The reference range was not used to interpret this result as normal/abnormal . RBC (test code = See_Comment L [Automated 919-8) message] The sy stem which generated this result transmitted reference range : 3.93 - 5.25 10*6/?L. The reference range was not used to interpret this result as normal/abnormal . HGB (test code = 8.6 g/dL 11.6-15.0 L 718-7) HCT (test code = 26.3 % 35.7-45.2 L 4544-3) MCV (test code = 87.7 fL 80.6-95.5 787-2) MCH (test code = 28.7 pg 25.9-32.8 785-6) MCHC (test code = 32.7 g/dL 31.6-35.1 786-4) RDW-SD (test code = 42.7 fL 39.0-49.9 83898-9) RDW-CV (test code = 13.8 % 12.0-15.5 788-0) PLT (test code = See_Comment [Automated 777-3) message] The sy stem which generated this result transmitted reference range : 166 - 358 10*3/ ?L. The reference r jordyn was not used to interpret this result as normal/abnormal . MPV (test code = 9.7 fL 9.5-12.9 28709-1) NRBC/100 WBC (test See_Comment [Automat ed code = 4413995024) message] The system which generated this result transmitted reference range : 0.0 - 10.0 /100 WBCs. The refer ence range was not u sed to interpret th is result as normal/abnormal . NRBC x10^3 (test code <0.01 See_Comment [Auto mated = 0443343729) message] The s ystem which generated this result transmitted reference range : 10*3/?L. The reference range was not used to interpret this result as normal/abnormal . GRAN MAT (NEUT) % 51.8 % (test code = 770-8) IMM GRAN % (test code 0.30 % = 1085193400) LYMPH % (test code = 36.6 % 736-9) MONO % (test code = 6.8 % 5905-5) EOS % (test code = 4.0 % 713-8) BASO % (test code = 0.5 % 706-2) GRAN MAT x10^3(ANC) 3.26 10*3/uL 1.88-7.09 (test code = 2063231685) IMM GRAN x10^3 (test <0.03 0.00-0.06 code = 5176049774) LYMPH x10^3 (test code 2.30 10*3/uL 1.32-3.29 = 731-0) MONO x10^3 (test code 0.43 10*3/uL 0.33-0.92 = 742-7) EOS x10^3 (test code = 0.25 10*3/uL 0.03-0.39 711-2) BASO x10^3 (test code 0.03 10*3/uL 0.01-0.07 = 704-7) Lab Interpretation Abnormal (test code = 84229-8) [facility] GLUCOSE (AUTOMATED)2021-11-11 02:25:54 Test Item Value Reference Range Interpretation Comments POCT GLU (test code = 7976760368) 125 mg/dL 70-110 H Lab Interpretation (test code = Abnormal 93854-8) [facility] GLUCOSE (AUTOMATED)2021-11-11 02:25:54 Test Item Value Reference Range Interpretation Comments POCT GLU (test code = 4469817396) 125 mg/dL 70-110 H Lab Interpretation (test code = Abnormal 61323-2) [facility] GLUCOSE (AUTOMATED)2021-11-10 22:38:47 Test Item Value Reference Range Interpretation Comments POCT GLU (test code = 1000899933) 103 mg/dL 70-110 Lab Interpretation (test code = Normal 84863-6) [facility] GLUCOSE (AUTOMATED)2021-11-10 22:38:47 Test Item Value Reference Range Interpretation Comments POCT GLU (test code = 5064296253) 103 mg/dL 70-110 Lab Interpretation (test code = Normal 03770-6) [facility] GLUCOSE (AUTOMATED)2021-11-10 22:38:47 Test Item Value Reference Range Interpretation Comments POCT GLU (test code = 6639797432) 103 mg/dL 70-110 Lab Interpretation (test code = Normal 22450-0) [facility] GLUCOSE (AUTOMATED)2021-11-10 17:16:03 Test Item Value Reference Range Interpretation Comments POCT GLU (test code = 1594569912) 254 mg/dL 70-110 H Lab Interpretation (test code = Abnormal 20653-7) [facility] GLUCOSE (AUTOMATED)2021-11-10 17:16:03 Test Item Value Reference Range Interpretation Comments POCT GLU (test code = 1622922582) 254 mg/dL 70-110 H Lab Interpretation (test code = Abnormal 72659-3) [facility] GLUCOSE (AUTOMATED)2021-11-10 17:16:03 Test Item Value Reference Range Interpretation Comments POCT GLU (test code = 6665673096) 254 mg/dL 70-110 H Lab Interpretation (test code = Abnormal 65755-2) [facility] GLUCOSE (AUTOMATED)2021-11-10 13:33:03 Test Item Value Reference Range Interpretation Comments POCT GLU (test code = 2423565652) 100 mg/dL 70-110 Lab Interpretation (test code = Normal 46749-1) [facility] GLUCOSE (AUTOMATED)2021-11-10 13:33:03 Test Item Value Reference Range Interpretation Comments POCT GLU (test code = 8853815828) 100 mg/dL 70-110 Lab Interpretation (test code = Normal 14041-5) [facility] GLUCOSE (AUTOMATED)2021-11-10 13:33:03 Test Item Value Reference Range Interpretation Comments POCT GLU (test code = 1574790990) 100 mg/dL 70-110 Lab Interpretation (test code = Normal 19041-1) [facility] WITH [id number] 10:15:20 Test Item Value Reference Range Interpretation Comments WBC (test code = See_Comment [Automated 6690-2) message] The sy stem which generated this result transmitted reference range : 4.30 - 11.10 10*3/?L. The reference range was not used to interpret this result as normal/abnormal . RBC (test code = See_Comment L [Automated 679-8) message] The sy stem which generated this result transmitted reference range : 3.93 - 5.25 10*6/?L. The reference range was not used to interpret this result as normal/abnormal . HGB (test code = 8.5 g/dL 11.6-15.0 L 718-7) HCT (test code = 26.2 % 35.7-45.2 L 4544-3) MCV (test code = 87.0 fL 80.6-95.5 787-2) MCH (test code = 28.2 pg 25.9-32.8 785-6) MCHC (test code = 32.4 g/dL 31.6-35.1 786-4) RDW-SD (test code = 42.6 fL 39.0-49.9 57908-1) RDW-CV (test code = 13.8 % 12.0-15.5 788-0) PLT (test code = See_Comment [Automated 777-3) message] The sy stem which generated this result transmitted reference range : 166 - 358 10*3/ ?L. The reference r jordyn was not used to interpret this result as normal/abnormal . MPV (test code = 9.5 fL 9.5-12.9 28218-5) NRBC/100 WBC (test See_Comment [Automat ed code = 0740483025) message] The system which generated this result transmitted reference range : 0.0 - 10.0 /100 WBCs. The refer ence range was not u sed to interpret th is result as normal/abnormal . NRBC x10^3 (test code <0.01 See_Comment [Auto mated = 1478467159) message] The s ystem which generated this result transmitted reference range : 10*3/?L. The reference range was not used to interpret this result as normal/abnormal . GRAN MAT (NEUT) % 52.2 % (test code = 770-8) IMM GRAN % (test code 0.40 % = 4804039119) LYMPH % (test code = 36.0 % 736-9) MONO % (test code = 6.7 % 5905-5) EOS % (test code = 4.0 % 713-8) BASO % (test code = 0.7 % 706-2) GRAN MAT x10^3(ANC) 2.89 10*3/uL 1.88-7.09 (test code = 3420172868) IMM GRAN x10^3 (test <0.03 0.00-0.06 code = 5648194054) LYMPH x10^3 (test code 1.99 10*3/uL 1.32-3.29 = 731-0) MONO x10^3 (test code 0.37 10*3/uL 0.33-0.92 = 742-7) EOS x10^3 (test code = 0.22 10*3/uL 0.03-0.39 711-2) BASO x10^3 (test code 0.04 10*3/uL 0.01-0.07 = 704-7) Lab Interpretation Abnormal (test code = 93002-7) [facility] WITH [id number] 10:15:20 Test Item Value Reference Range Interpretation Comments WBC (test code = See_Comment [Automated 6690-2) message] The sy stem which generated this result transmitted reference range : 4.30 - 11.10 10*3/?L. The reference range was not used to interpret this result as normal/abnormal . RBC (test code = See_Comment L [Automated 789-8) message] The sy stem which generated this result transmitted reference range : 3.93 - 5.25 10*6/?L. The reference range was not used to interpret this result as normal/abnormal . HGB (test code = 8.5 g/dL 11.6-15.0 L 718-7) HCT (test code = 26.2 % 35.7-45.2 L 4544-3) MCV (test code = 87.0 fL 80.6-95.5 787-2) MCH (test code = 28.2 pg 25.9-32.8 785-6) MCHC (test code = 32.4 g/dL 31.6-35.1 786-4) RDW-SD (test code = 42.6 fL 39.0-49.9 33979-4) RDW-CV (test code = 13.8 % 12.0-15.5 788-0) PLT (test code = See_Comment [Automated 777-3) message] The sy stem which generated this result transmitted reference range : 166 - 358 10*3/ ?L. The reference r jordyn was not used to interpret this result as normal/abnormal . MPV (test code = 9.5 fL 9.5-12.9 23011-2) NRBC/100 WBC (test See_Comment [Automat ed code = 2361872830) message] The system which generated this result transmitted reference range : 0.0 - 10.0 /100 WBCs. The refer ence range was not u sed to interpret th is result as normal/abnormal . NRBC x10^3 (test code <0.01 See_Comment [Auto mated = 9391391585) message] The s ystem which generated this result transmitted reference range : 10*3/?L. The reference range was not used to interpret this result as normal/abnormal . GRAN MAT (NEUT) % 52.2 % (test code = 770-8) IMM GRAN % (test code 0.40 % = 1097861974) LYMPH % (test code = 36.0 % 736-9) MONO % (test code = 6.7 % 5905-5) EOS % (test code = 4.0 % 713-8) BASO % (test code = 0.7 % 706-2) GRAN MAT x10^3(ANC) 2.89 10*3/uL 1.88-7.09 (test code = 8531766116) IMM GRAN x10^3 (test <0.03 0.00-0.06 code = 5528325451) LYMPH x10^3 (test code 1.99 10*3/uL 1.32-3.29 = 731-0) MONO x10^3 (test code 0.37 10*3/uL 0.33-0.92 = 742-7) EOS x10^3 (test code = 0.22 10*3/uL 0.03-0.39 711-2) BASO x10^3 (test code 0.04 10*3/uL 0.01-0.07 = 704-7) Lab Interpretation Abnormal (test code = 35582-0) [facility] WITH [id number] 10:15:20 Test Item Value Reference Range Interpretation Comments WBC (test code = See_Comment [Automated 6190-2) message] The sy stem which generated this result transmitted reference range : 4.30 - 11.10 10*3/?L. The reference range was not used to interpret this result as normal/abnormal . RBC (test code = See_Comment L [Automated 979-8) message] The sy stem which generated this result transmitted reference range : 3.93 - 5.25 10*6/?L. The reference range was not used to interpret this result as normal/abnormal . HGB (test code = 8.5 g/dL 11.6-15.0 L 718-7) HCT (test code = 26.2 % 35.7-45.2 L 4544-3) MCV (test code = 87.0 fL 80.6-95.5 787-2) MCH (test code = 28.2 pg 25.9-32.8 785-6) MCHC (test code = 32.4 g/dL 31.6-35.1 786-4) RDW-SD (test code = 42.6 fL 39.0-49.9 82642-7) RDW-CV (test code = 13.8 % 12.0-15.5 788-0) PLT (test code = See_Comment [Automated 777-3) message] The sy stem which generated this result transmitted reference range : 166 - 358 10*3/ ?L. The reference r jordyn was not used to interpret this result as normal/abnormal . MPV (test code = 9.5 fL 9.5-12.9 81726-3) NRBC/100 WBC (test See_Comment [Automat ed code = 4483827632) message] The system which generated this result transmitted reference range : 0.0 - 10.0 /100 WBCs. The refer ence range was not u sed to interpret th is result as normal/abnormal . NRBC x10^3 (test code <0.01 See_Comment [Auto mated = 4860349939) message] The s ystem which generated this result transmitted reference range : 10*3/?L. The reference range was not used to interpret this result as normal/abnormal . GRAN MAT (NEUT) % 52.2 % (test code = 770-8) IMM GRAN % (test code 0.40 % = 0963261073) LYMPH % (test code = 36.0 % 736-9) MONO % (test code = 6.7 % 5905-5) EOS % (test code = 4.0 % 713-8) BASO % (test code = 0.7 % 706-2) GRAN MAT x10^3(ANC) 2.89 10*3/uL 1.88-7.09 (test code = 8989625997) IMM GRAN x10^3 (test <0.03 0.00-0.06 code = 2547169669) LYMPH x10^3 (test code 1.99 10*3/uL 1.32-3.29 = 731-0) MONO x10^3 (test code 0.37 10*3/uL 0.33-0.92 = 742-7) EOS x10^3 (test code = 0.22 10*3/uL 0.03-0.39 711-2) BASO x10^3 (test code 0.04 10*3/uL 0.01-0.07 = 704-7) Lab Interpretation Abnormal (test code = 29371-7) [facility] WITH [id number] 05:07:31 Test Item Value Reference Range Interpretation Comments WBC (test code = See_Comment [Automated 6690-2) message] The sy stem which generated this result transmitted reference range : 4.30 - 11.10 10*3/?L. The reference range was not used to interpret this result as normal/abnormal . RBC (test code = See_Comment L [Automated 789-8) message] The sy stem which generated this result transmitted reference range : 3.93 - 5.25 10*6/?L. The reference range was not used to interpret this result as normal/abnormal . HGB (test code = 8.2 g/dL 11.6-15.0 L 718-7) HCT (test code = 25.0 % 35.7-45.2 L 4544-3) MCV (test code = 86.2 fL 80.6-95.5 787-2) MCH (test code = 28.3 pg 25.9-32.8 785-6) MCHC (test code = 32.8 g/dL 31.6-35.1 786-4) RDW-SD (test code = 43.1 fL 39.0-49.9 31588-6) RDW-CV (test code = 13.9 % 12.0-15.5 788-0) PLT (test code = See_Comment [Automated 777-3) message] The sy stem which generated this result transmitted reference range : 166 - 358 10*3/ ?L. The reference r jordyn was not used to interpret this result as normal/abnormal . MPV (test code = 9.6 fL 9.5-12.9 20300-5) NRBC/100 WBC (test See_Comment [Automat ed code = 7521522315) message] The system which generated this result transmitted reference range : 0.0 - 10.0 /100 WBCs. The refer ence range was not u sed to interpret th is result as normal/abnormal . NRBC x10^3 (test code See_Comment [Auto mated = 7528808244) message] The s ystem which generated this result transmitted reference range : 10*3/?L. The reference range was not used to interpret this result as normal/abnormal . GRAN MAT (NEUT) % 49.5 % (test code = 770-8) IMM GRAN % (test code 0.30 % = 6340399325) LYMPH % (test code = 39.4 % 736-9) MONO % (test code = 6.3 % 5905-5) EOS % (test code = 3.8 % 713-8) BASO % (test code = 0.7 % 706-2) GRAN MAT x10^3(ANC) 2.89 10*3/uL 1.88-7.09 (test code = 0056776005) IMM GRAN x10^3 (test <0.03 0.00-0.06 code = 5545801784) LYMPH x10^3 (test code 2.30 10*3/uL 1.32-3.29 = 731-0) MONO x10^3 (test code 0.37 10*3/uL 0.33-0.92 = 742-7) EOS x10^3 (test code = 0.22 10*3/uL 0.03-0.39 711-2) BASO x10^3 (test code 0.04 10*3/uL 0.01-0.07 = 704-7) Lab Interpretation Abnormal (test code = 05773-6) [facility] WITH [id number] 05:07:31 Test Item Value Reference Range Interpretation Comments WBC (test code = See_Comment [Automated 9890-2) message] The sy stem which generated this result transmitted reference range : 4.30 - 11.10 10*3/?L. The reference range was not used to interpret this result as normal/abnormal . RBC (test code = See_Comment L [Automated 169-8) message] The sy stem which generated this result transmitted reference range : 3.93 - 5.25 10*6/?L. The reference range was not used to interpret this result as normal/abnormal . HGB (test code = 8.2 g/dL 11.6-15.0 L 718-7) HCT (test code = 25.0 % 35.7-45.2 L 4544-3) MCV (test code = 86.2 fL 80.6-95.5 787-2) MCH (test code = 28.3 pg 25.9-32.8 785-6) MCHC (test code = 32.8 g/dL 31.6-35.1 786-4) RDW-SD (test code = 43.1 fL 39.0-49.9 56748-0) RDW-CV (test code = 13.9 % 12.0-15.5 788-0) PLT (test code = See_Comment [Automated 777-3) message] The sy stem which generated this result transmitted reference range : 166 - 358 10*3/ ?L. The reference r jordyn was not used to interpret this result as normal/abnormal . MPV (test code = 9.6 fL 9.5-12.9 07518-9) NRBC/100 WBC (test See_Comment [Automat ed code = 7514414097) message] The system which generated this result transmitted reference range : 0.0 - 10.0 /100 WBCs. The refer ence range was not u sed to interpret th is result as normal/abnormal . NRBC x10^3 (test code See_Comment [Auto mated = 4731406614) message] The s ystem which generated this result transmitted reference range : 10*3/?L. The reference range was not used to interpret this result as normal/abnormal . GRAN MAT (NEUT) % 49.5 % (test code = 770-8) IMM GRAN % (test code 0.30 % = 3566161561) LYMPH % (test code = 39.4 % 736-9) MONO % (test code = 6.3 % 5905-5) EOS % (test code = 3.8 % 713-8) BASO % (test code = 0.7 % 706-2) GRAN MAT x10^3(ANC) 2.89 10*3/uL 1.88-7.09 (test code = 4517571077) IMM GRAN x10^3 (test <0.03 0.00-0.06 code = 9179849436) LYMPH x10^3 (test code 2.30 10*3/uL 1.32-3.29 = 731-0) MONO x10^3 (test code 0.37 10*3/uL 0.33-0.92 = 742-7) EOS x10^3 (test code = 0.22 10*3/uL 0.03-0.39 711-2) BASO x10^3 (test code 0.04 10*3/uL 0.01-0.07 = 704-7) Lab Interpretation Abnormal (test code = 15188-3) [facility] WITH [id number] 05:07:31 Test Item Value Reference Range Interpretation Comments WBC (test code = See_Comment [Automated 4990-2) message] The sy stem which generated this result transmitted reference range : 4.30 - 11.10 10*3/?L. The reference range was not used to interpret this result as normal/abnormal . RBC (test code = See_Comment L [Automated 279-8) message] The sy stem which generated this result transmitted reference range : 3.93 - 5.25 10*6/?L. The reference range was not used to interpret this result as normal/abnormal . HGB (test code = 8.2 g/dL 11.6-15.0 L 718-7) HCT (test code = 25.0 % 35.7-45.2 L 4544-3) MCV (test code = 86.2 fL 80.6-95.5 787-2) MCH (test code = 28.3 pg 25.9-32.8 785-6) MCHC (test code = 32.8 g/dL 31.6-35.1 786-4) RDW-SD (test code = 43.1 fL 39.0-49.9 79229-5) RDW-CV (test code = 13.9 % 12.0-15.5 788-0) PLT (test code = See_Comment [Automated 777-3) message] The sy stem which generated this result transmitted reference range : 166 - 358 10*3/ ?L. The reference r jordyn was not used to interpret this result as normal/abnormal . MPV (test code = 9.6 fL 9.5-12.9 19367-4) NRBC/100 WBC (test See_Comment [Automat ed code = 9312904673) message] The system which generated this result transmitted reference range : 0.0 - 10.0 /100 WBCs. The refer ence range was not u sed to interpret th is result as normal/abnormal . NRBC x10^3 (test code See_Comment [Auto mated = 9168842161) message] The s ystem which generated this result transmitted reference range : 10*3/?L. The reference range was not used to interpret this result as normal/abnormal . GRAN MAT (NEUT) % 49.5 % (test code = 770-8) IMM GRAN % (test code 0.30 % = 4370032199) LYMPH % (test code = 39.4 % 736-9) MONO % (test code = 6.3 % 5905-5) EOS % (test code = 3.8 % 713-8) BASO % (test code = 0.7 % 706-2) GRAN MAT x10^3(ANC) 2.89 10*3/uL 1.88-7.09 (test code = 8691552231) IMM GRAN x10^3 (test <0.03 0.00-0.06 code = 3806727979) LYMPH x10^3 (test code 2.30 10*3/uL 1.32-3.29 = 731-0) MONO x10^3 (test code 0.37 10*3/uL 0.33-0.92 = 742-7) EOS x10^3 (test code = 0.22 10*3/uL 0.03-0.39 711-2) BASO x10^3 (test code 0.04 10*3/uL 0.01-0.07 = 704-7) Lab Interpretation Abnormal (test code = 44961-4) [facility] GLUCOSE (AUTOMATED)2021-11-10 00:58:37 Test Item Value Reference Range Interpretation Comments POCT GLU (test code = 7912585529) 98 mg/dL 70-110 Lab Interpretation (test code = Normal 20571-7) [facility] GLUCOSE (AUTOMATED)2021-11-10 00:58:37 Test Item Value Reference Range Interpretation Comments POCT GLU (test code = 4158190991) 98 mg/dL 70-110 Lab Interpretation (test code = Normal 41259-4) [facility] GLUCOSE (AUTOMATED)2021-11-10 00:58:37 Test Item Value Reference Range Interpretation Comments POCT GLU (test code = 8924684067) 98 mg/dL 70-110 Lab Interpretation (test code = Normal 98702-2) [facility] GLUCOSE (AUTOMATED)2021-11-09 21:28:09 Test Item Value Reference Range Interpretation Comments POCT GLU (test code = 3536035163) 104 mg/dL 70-110 Lab Interpretation (test code = Normal 90868-3) [facility] GLUCOSE (AUTOMATED)2021-11-09 21:28:09 Test Item Value Reference Range Interpretation Comments POCT GLU (test code = 5224809813) 104 mg/dL 70-110 Lab Interpretation (test code = Normal 08804-1) [facility] GLUCOSE (AUTOMATED)2021-11-09 21:28:09 Test Item Value Reference Range Interpretation Comments POCT GLU (test code = 0255543747) 104 mg/dL 70-110 Lab Interpretation (test code = Normal 20414-0) [facility] GLUCOSE (AUTOMATED)2021-11-09 16:57:15 Test Item Value Reference Range Interpretation Comments POCT GLU (test code = 9683071390) 99 mg/dL 70-110 Lab Interpretation (test code = Normal 81376-1) [facility] GLUCOSE (AUTOMATED)2021-11-09 16:57:15 Test Item Value Reference Range Interpretation Comments POCT GLU (test code = 9596439259) 99 mg/dL 70-110 Lab Interpretation (test code = Normal 77396-3) [facility] GLUCOSE (AUTOMATED)2021-11-09 16:57:15 Test Item Value Reference Range Interpretation Comments POCT GLU (test code = 3217333047) 99 mg/dL 70-110 Lab Interpretation (test code = Normal 07111-8) [facility] WITHOUT [id number] 14:47:39 Test Item Value Reference Range Interpretation Comments WBC (test code = 6690-2) See_Comment [A utomated message] The system [employer] generated this result transmit derian reference range : 4.30 - 11.10 10*3/?L. The reference range was not used to interpret this result as normal/abnormal . RBC (test code = 789-8) See_Comment L [Au tomated message] The system [employer] generated this result transmit derian reference range : 3.93 - 5.25 10* 6/?L. The reference r jordyn was not used to interpret this result as normal/abnormal . HGB (test code = 718-7) 9.1 g/dL 11.6-15.0 L HCT (test code = 4544-3) 27.2 % 35.7-45.2 L MCH (test code = 785-6) 29.0 pg 25.9-32.8 MCV (test code = 787-2) 86.6 fL 80.6-95.5 MCHC (test code = 786-4) 33.5 g/dL 31.6-35.1 PLT (test code = 777-3) See_Comment [Au tomated message] The system [employer] generated this result transmit derian reference range : 166 - 358 10*3/?L. The reference range was not used to interpret this result as normal/abnormal . MPV (test code = 9.3 fL 9.5-12.9 L 18915-4) RDW-CV (test code = 14.1 % 12.0-15.5 788-0) RDW-SD (test code = 43.7 fL 39.0-49.9 82426-3) NRBC x10^3 (test code = <0.01 See_Comment [Au tomated message] 7537147163) The system [employer] generated this result transmit derian reference range : 10*3/?L. The reference range was not used to interpret this result as normal/abnormal . NRBC/100 WBC (test code See_Comment [Au tomated message] = 0764245940) The system [facility] generated this result transmit derian reference range : 0.0 - 10.0 /100 WBC s. The reference r jordyn was not used to interpret this result as normal/abnormal . IPF % (test code = 1399414557) Lab Interpretation (test Abnormal code = 68074-8) [facility] WITHOUT [id number] 14:47:39 Test Item Value Reference Range Interpretation Comments WBC (test code = 6690-2) See_Comment [A utomated message] The system [employer] generated this result transmit derian reference range : 4.30 - 11.10 10*3/?L. The reference range was not used to interpret this result as normal/abnormal . RBC (test code = 789-8) See_Comment L [Au tomated message] The system [employer] generated this result transmit derian reference range : 3.93 - 5.25 10* 6/?L. The reference r jordyn was not used to interpret this result as normal/abnormal . HGB (test code = 718-7) 9.1 g/dL 11.6-15.0 L HCT (test code = 4544-3) 27.2 % 35.7-45.2 L MCH (test code = 785-6) 29.0 pg 25.9-32.8 MCV (test code = 787-2) 86.6 fL 80.6-95.5 MCHC (test code = 786-4) 33.5 g/dL 31.6-35.1 PLT (test code = 777-3) See_Comment [Au tomated message] The system [employer] generated this result transmit derian reference range : 166 - 358 10*3/?L. The reference range was not used to interpret this result as normal/abnormal . MPV (test code = 9.3 fL 9.5-12.9 L 93079-8) RDW-CV (test code = 14.1 % 12.0-15.5 788-0) RDW-SD (test code = 43.7 fL 39.0-49.9 07879-3) NRBC x10^3 (test code = <0.01 See_Comment [Au tomated message] 9199845878) The system [employer] generated this result transmit derian reference range : 10*3/?L. The reference range was not used to interpret this result as normal/abnormal . NRBC/100 WBC (test code See_Comment [Au tomated message] = 4965842850) The system [employer] generated this result transmit derian reference range : 0.0 - 10.0 /100 WBC s. The reference r jordyn was not used to interpret this result as normal/abnormal . IPF % (test code = 1589027566) Lab Interpretation (test Abnormal code = 38483-3) [facility] WITHOUT [id number] 14:47:39 Test Item Value Reference Range Interpretation Comments WBC (test code = 6690-2) See_Comment [A utomated message] The system [employer] generated this result transmit derian reference range : 4.30 - 11.10 10*3/?L. The reference range was not used to interpret this result as normal/abnormal . RBC (test code = 789-8) See_Comment L [Au tomated message] The system [employer] generated this result transmit derian reference range : 3.93 - 5.25 10* 6/?L. The reference r jordyn was not used to interpret this result as normal/abnormal . HGB (test code = 718-7) 9.1 g/dL 11.6-15.0 L HCT (test code = 4544-3) 27.2 % 35.7-45.2 L MCH (test code = 785-6) 29.0 pg 25.9-32.8 MCV (test code = 787-2) 86.6 fL 80.6-95.5 MCHC (test code = 786-4) 33.5 g/dL 31.6-35.1 PLT (test code = 777-3) See_Comment [Au tomated message] The system [employer] generated this result transmit derian reference range : 166 - 358 10*3/?L. The reference range was not used to interpret this result as normal/abnormal . MPV (test code = 9.3 fL 9.5-12.9 L 97496-9) RDW-CV (test code = 14.1 % 12.0-15.5 788-0) RDW-SD (test code = 43.7 fL 39.0-49.9 85592-8) NRBC x10^3 (test code = <0.01 See_Comment [Au tomated message] 5757977219) The system [employer] generated this result transmit derian reference range : 10*3/?L. The reference range was not used to interpret this result as normal/abnormal . NRBC/100 WBC (test code See_Comment [Au tomated message] = 1834621625) The system [employer] generated this result transmit derian reference range : 0.0 - 10.0 /100 WBC s. The reference r jordyn was not used to interpret this result as normal/abnormal . IPF % (test code = 8180630265) Lab Interpretation (test Abnormal code = 95841-7) [facility] GLUCOSE (AUTOMATED)2021-11-09 12:10:09 Test Item Value Reference Range Interpretation Comments POCT GLU (test code = 5335768970) 92 mg/dL 70-110 Lab Interpretation (test code = Normal 99806-5) [facility] GLUCOSE (AUTOMATED)2021-11-09 12:10:09 Test Item Value Reference Range Interpretation Comments POCT GLU (test code = 6782271881) 92 mg/dL 70-110 Lab Interpretation (test code = Normal 11806-3) [facility] GLUCOSE (AUTOMATED)2021-11-09 12:10:09 Test Item Value Reference Range Interpretation Comments POCT GLU (test code = 7789396422) 92 mg/dL 70-110 Lab Interpretation (test code = Normal 29011-6) [facility] METABOLIC PANEL (NA, K, CL, CO2, GLUCOSE, BUN, CREATININE, CA)2021-11-09 07:40:48 Test Item Value Reference Range Interpretation Comments NA (test code = 137 mmol/L 135-145 1298334019) K (test code = 3.5 mmol/L 3.5-5.0 2670668693) CL (test code = 112 mmol/L 98-108 H 7572808206) CO2 TOTAL (test code = 27 mmol/L 23-31 5575882483) AGAP (test code = <1 2-16 L 3049771553) BUN (test code = 6 mg/dL 7-23 L 0476106221) GLUCOSE (test code = 97 mg/dL 70-110 5114034875) CREATININE (test code = 0.83 mg/dL 0.50-1.04 9241287681) CALCIUM (test code = 8.1 mg/dL 8.6-10.6 L 5470964544) eGFR (test code = mL/min/1.73m2 8728105709) ALYSSA (test code = ALYSSA) Association of Glomerular Filtration Rate (GFR) and Staging of Kidney Disease* + --+ --+ ------+| GFR (mL/min/1.73 m2) ?| With Kidney Damage ?| ?Without Kidney Damage+ --------+ --------+ +| ?>90 ?| ?Stage one ?| ? Normal ?+ ---+ ---+ -------+| ?60-89 ?| ?Stage two ?| ? Decreased GFR ? + --+ --+ ------+| ?30-59 ?| ?Stage three ?| ? Stage three ? + --+ --+ ------+| ?15-29 ?| ?Stage four ? | ? Stage four ?+ ---+ ---+ -------+| ?<15 (or dialysis) ? ?| ?Stage five ? | ? Stage five ?+ ---+ ---+ -------+ *Each stage assumes the associated GFR level has been in effect for at least three months. ?Stages 1 to 5, with or without kidney disease, indicate chronic kidney disease. Notes: Determination of stages one and two (with eGFR >59mL/min/1.73 m2) requires estimation of kidney damage for at least three months as defined by structural or functional abnormalities of the kidney, manifested by either:Pathological abnormalities or Markers of kidney damage (including abnormalities in the composition of the blood or urine or abnormalities in imaging tests). Lab Interpretation Abnormal (test code = 02116-2) [facility] (NA, K, CL, CO2, GLUCOSE, BUN, CREATININE, CA)2021-11-09 07:40:48 Test Item Value Reference Range Interpretation Comments NA (test code = 137 mmol/L 135-145 0514003456) K (test code = 3.5 mmol/L 3.5-5.0 5079154761) CL (test code = 112 mmol/L 98-108 H 1648531030) CO2 TOTAL (test code = 27 mmol/L 23-31 5031831213) AGAP (test code = <1 2-16 L 1773577155) BUN (test code = 6 mg/dL 7-23 L 9661482706) GLUCOSE (test code = 97 mg/dL 70-110 1891639326) CREATININE (test code = 0.83 mg/dL 0.50-1.04 5786523394) CALCIUM (test code = 8.1 mg/dL 8.6-10.6 L 8826923273) eGFR (test code = mL/min/1.73m2 6510881669) ALYSSA (test code = ALYSSA) Association of Glomerular Filtration Rate (GFR) and Staging of Kidney Disease* + --+ --+ ------+| GFR (mL/min/1.73 m2) ?| With Kidney Damage ?| ?Without Kidney Damage+ --------+ --------+ +| ?>90 ?| ?Stage one ?| ? Normal ?+ ---+ ---+ -------+| ?60-89 ?| ?Stage two ?| ? Decreased GFR ? + --+ --+ ------+| ?30-59 ?| ?Stage three ?| ? Stage three ? + --+ --+ ------+| ?15-29 ?| ?Stage four ? | ? Stage four ?+ ---+ ---+ -------+| ?<15 (or dialysis) ? ?| ?Stage five ? | ? Stage five ?+ ---+ ---+ -------+ *Each stage assumes the associated GFR level has been in effect for at least three months. ?Stages 1 to 5, with or without kidney disease, indicate chronic kidney disease. Notes: Determination of stages one and two (with eGFR >59mL/min/1.73 m2) requires estimation of kidney damage for at least three months as defined by structural or functional abnormalities of the kidney, manifested by either:Pathological abnormalities or Markers of kidney damage (including abnormalities in the composition of the blood or urine or abnormalities in imaging tests). Lab Interpretation Abnormal (test code = 63466-8) [facility] METABOLIC PANEL (NA, K, CL, CO2, GLUCOSE, BUN, CREATININE, CA)2021-11-09 07:40:48 Test Item Value Reference Range Interpretation Comments NA (test code = 137 mmol/L 135-145 9809246227) K (test code = 3.5 mmol/L 3.5-5.0 9387380495) CL (test code = 112 mmol/L 98-108 H 2178235612) CO2 TOTAL (test code = 27 mmol/L 23-31 6037334541) AGAP (test code = <1 2-16 L 8251378300) BUN (test code = 6 mg/dL 7-23 L 1571240388) GLUCOSE (test code = 97 mg/dL 70-110 8344077374) CREATININE (test code = 0.83 mg/dL 0.50-1.04 5234652804) CALCIUM (test code = 8.1 mg/dL 8.6-10.6 L 7034889657) eGFR (test code = mL/min/1.73m2 8676728096) ALYSSA (test code = ALYSSA) Association of Glomerular Filtration Rate (GFR) and Staging of Kidney Disease* + --+ --+ ------+| GFR (mL/min/1.73 m2) ?| With Kidney Damage ?| ?Without Kidney Damage+ --------+ --------+ +| ?>90 ?| ?Stage one ?| ? Normal ?+ ---+ ---+ -------+| ?60-89 ?| ?Stage two ?| ? Decreased GFR ? + --+ --+ ------+| ?30-59 ?| ?Stage three ?| ? Stage three ? + --+ --+ ------+| ?15-29 ?| ?Stage four ? | ? Stage four ?+ ---+ ---+ -------+| ?<15 (or dialysis) ? ?| ?Stage five ? | ? Stage five ?+ ---+ ---+ -------+ *Each stage assumes the associated GFR level has been in effect for at least three months. ?Stages 1 to 5, with or without kidney disease, indicate chronic kidney disease. Notes: Determination of stages one and two (with eGFR >59mL/min/1.73 m2) requires estimation of kidney damage for at least three months as defined by structural or functional abnormalities of the kidney, manifested by either:Pathological abnormalities or Markers of kidney damage (including abnormalities in the composition of the blood or urine or abnormalities in imaging tests). Lab Interpretation Abnormal (test code = 88861-3) [facility] Test Item Value Reference Range Interpretation Comments MAGNESIUM (test code = 8314898676) 2.2 mg/dL 1.7-2.4 Lab Interpretation (test code = Normal 15560-8) [facility] Test Item Value Reference Range Interpretation Comments MAGNESIUM (test code = 7805315580) 2.2 mg/dL 1.7-2.4 Lab Interpretation (test code = Normal 31540-4) [facility] Test Item Value Reference Range Interpretation Comments MAGNESIUM (test code = 8136054256) 2.2 mg/dL 1.7-2.4 Lab Interpretation (test code = Normal 39544-4) [facility] WITHOUT [id number] 07:19:16 Test Item Value Reference Range Interpretation Comments WBC (test code = 6690-2) See_Comment [A utomated message] The system [employer] generated this result transmit derian reference range : 4.30 - 11.10 10*3/?L. The reference range was not used to interpret this result as normal/abnormal . RBC (test code = 789-8) See_Comment L [Au tomated message] The system [employer] generated this result transmit derian reference range : 3.93 - 5.25 10* 6/?L. The reference r jordyn was not used to interpret this result as normal/abnormal . HGB (test code = 718-7) 8.5 g/dL 11.6-15.0 L HCT (test code = 4544-3) 25.2 % 35.7-45.2 L MCH (test code = 785-6) 28.9 pg 25.9-32.8 MCV (test code = 787-2) 85.7 fL 80.6-95.5 MCHC (test code = 786-4) 33.7 g/dL 31.6-35.1 PLT (test code = 777-3) See_Comment L [Au tomated message] The system [employer] generated this result transmit derian reference range : 166 - 358 10*3/?L. The reference range was not used to interpret this result as normal/abnormal . MPV (test code = 9.6 fL 9.5-12.9 62640-4) RDW-CV (test code = 14.0 % 12.0-15.5 788-0) RDW-SD (test code = 43.3 fL 39.0-49.9 28045-7) NRBC x10^3 (test code = <0.01 See_Comment [Au tomated message] [id number]) The system [employer] generated this result transmit derian reference range : 10*3/?L. The reference range was not used to interpret this result as normal/abnormal . NRBC/100 WBC (test code See_Comment [Au tomated message] = 5023151892) The system [employer] generated this result transmit derian reference range : 0.0 - 10.0 /100 WBC s. The reference r jordyn was not used to interpret this result as normal/abnormal . IPF % (test code = 8398202774) Lab Interpretation (test Abnormal code = 38337-4) [facility] WITHOUT [id number] 07:19:16 Test Item Value Reference Range Interpretation Comments WBC (test code = 6690-2) See_Comment [A utomated message] The system [employer] generated this result transmit derian reference range : 4.30 - 11.10 10*3/?L. The reference range was not used to interpret this result as normal/abnormal . RBC (test code = 789-8) See_Comment L [Au tomated message] The system [employer] generated this result transmit derian reference range : 3.93 - 5.25 10* 6/?L. The reference r jordyn was not used to interpret this result as normal/abnormal . HGB (test code = 718-7) 8.5 g/dL 11.6-15.0 L HCT (test code = 4544-3) 25.2 % 35.7-45.2 L MCH (test code = 785-6) 28.9 pg 25.9-32.8 MCV (test code = 787-2) 85.7 fL 80.6-95.5 MCHC (test code = 786-4) 33.7 g/dL 31.6-35.1 PLT (test code = 777-3) See_Comment L [Au tomated message] The system [employer] generated this result transmit derian reference range : 166 - 358 10*3/?L. The reference range was not used to interpret this result as normal/abnormal . MPV (test code = 9.6 fL 9.5-12.9 41912-0) RDW-CV (test code = 14.0 % 12.0-15.5 788-0) RDW-SD (test code = 43.3 fL 39.0-49.9 70088-9) NRBC x10^3 (test code = <0.01 See_Comment [Au tomated message] 6439424137) The system [employer] generated this result transmit derian reference range : 10*3/?L. The reference range was not used to interpret this result as normal/abnormal . NRBC/100 WBC (test code See_Comment [Au tomated message] = 1068796295) The system [facility] generated this result transmit derian reference range : 0.0 - 10.0 /100 WBC s. The reference r jordyn was not used to interpret this result as normal/abnormal . IPF % (test code = 1102836068) Lab Interpretation (test Abnormal code = 55035-3) [facility] WITHOUT [id number] 07:19:16 Test Item Value Reference Range Interpretation Comments WBC (test code = 6690-2) See_Comment [A utomated message] The system [employer] generated this result transmit derian reference range : 4.30 - 11.10 10*3/?L. The reference range was not used to interpret this result as normal/abnormal . RBC (test code = 789-8) See_Comment L [Au tomated message] The system [employer] generated this result transmit derian reference range : 3.93 - 5.25 10* 6/?L. The reference r jordyn was not used to interpret this result as normal/abnormal . HGB (test code = 718-7) 8.5 g/dL 11.6-15.0 L HCT (test code = 4544-3) 25.2 % 35.7-45.2 L MCH (test code = 785-6) 28.9 pg 25.9-32.8 MCV (test code = 787-2) 85.7 fL 80.6-95.5 MCHC (test code = 786-4) 33.7 g/dL 31.6-35.1 PLT (test code = 777-3) See_Comment L [Au tomated message] The system [employer] generated this result transmit derian reference range : 166 - 358 10*3/?L. The reference range was not used to interpret this result as normal/abnormal . MPV (test code = 9.6 fL 9.5-12.9 39278-0) RDW-CV (test code = 14.0 % 12.0-15.5 788-0) RDW-SD (test code = 43.3 fL 39.0-49.9 38486-3) NRBC x10^3 (test code = <0.01 See_Comment [Au tomated message] 4606868277) The system [employer] generated this result transmit derian reference range : 10*3/?L. The reference range was not used to interpret this result as normal/abnormal . NRBC/100 WBC (test code See_Comment [Au tomated message] = 9935461485) The system [employer] generated this result transmit derian reference range : 0.0 - 10.0 /100 WBC s. The reference r jordyn was not used to interpret this result as normal/abnormal . IPF % (test code = 2696908995) Lab Interpretation (test Abnormal code = 30426-6) [facility] GLUCOSE (AUTOMATED)2021-11-09 01:09:52 Test Item Value Reference Range Interpretation Comments POCT GLU (test code = 2074688328) 86 mg/dL 70-110 Lab Interpretation (test code = Normal 14770-1) [facility] GLUCOSE (AUTOMATED)2021-11-09 01:09:52 Test Item Value Reference Range Interpretation Comments POCT GLU (test code = 1183456341) 86 mg/dL 70-110 Lab Interpretation (test code = Normal 58831-4) [facility] GLUCOSE (AUTOMATED)2021-11-09 01:09:52 Test Item Value Reference Range Interpretation Comments POCT GLU (test code = 0401837601) 86 mg/dL 70-110 Lab Interpretation (test code = Normal 01089-1) [facility] WITHOUT [id number] 22:58:55 Test Item Value Reference Range Interpretation Comments WBC (test code = 6690-2) See_Comment [A utomated message] The system [employer] generated this result transmit derian reference range : 4.30 - 11.10 10*3/?L. The reference range was not used to interpret this result as normal/abnormal . RBC (test code = 789-8) See_Comment L [Au tomated message] The system [employer] generated this result transmit derian reference range : 3.93 - 5.25 10* 6/?L. The reference r jordyn was not used to interpret this result as normal/abnormal . HGB (test code = 718-7) 8.3 g/dL 11.6-15.0 L HCT (test code = 4544-3) 25.3 % 35.7-45.2 L MCH (test code = 785-6) 28.6 pg 25.9-32.8 MCV (test code = 787-2) 87.2 fL 80.6-95.5 MCHC (test code = 786-4) 32.8 g/dL 31.6-35.1 PLT (test code = 777-3) See_Comment [Au tomated message] The system [employer] generated this result transmit derian reference range : 166 - 358 10*3/?L. The reference range was not used to interpret this result as normal/abnormal . MPV (test code = 9.7 fL 9.5-12.9 49453-5) RDW-CV (test code = 13.8 % 12.0-15.5 788-0) RDW-SD (test code = 43.8 fL 39.0-49.9 48880-3) NRBC x10^3 (test code = <0.01 See_Comment [Au tomated message] 4757076117) The system [employer] generated this result transmit derian reference range : 10*3/?L. The reference range was not used to interpret this result as normal/abnormal . NRBC/100 WBC (test code See_Comment [Au tomated message] = 5949209802) The system [facility] generated this result transmit derian reference range : 0.0 - 10.0 /100 WBC s. The reference r jordyn was not used to interpret this result as normal/abnormal . IPF % (test code = 9085520953) Lab Interpretation (test Abnormal code = 44415-7) [facility] WITHOUT [id number] 22:58:55 Test Item Value Reference Range Interpretation Comments WBC (test code = 6690-2) See_Comment [A utomated message] The system [employer] generated this result transmit derian reference range : 4.30 - 11.10 10*3/?L. The reference range was not used to interpret this result as normal/abnormal . RBC (test code = 789-8) See_Comment L [Au tomated message] The system [employer] generated this result transmit derian reference range : 3.93 - 5.25 10* 6/?L. The reference r jordyn was not used to interpret this result as normal/abnormal . HGB (test code = 718-7) 8.3 g/dL 11.6-15.0 L HCT (test code = 4544-3) 25.3 % 35.7-45.2 L MCH (test code = 785-6) 28.6 pg 25.9-32.8 MCV (test code = 787-2) 87.2 fL 80.6-95.5 MCHC (test code = 786-4) 32.8 g/dL 31.6-35.1 PLT (test code = 777-3) See_Comment [Au tomated message] The system [employer] generated this result transmit derian reference range : 166 - 358 10*3/?L. The reference range was not used to interpret this result as normal/abnormal . MPV (test code = 9.7 fL 9.5-12.9 86360-6) RDW-CV (test code = 13.8 % 12.0-15.5 788-0) RDW-SD (test code = 43.8 fL 39.0-49.9 19520-6) NRBC x10^3 (test code = <0.01 See_Comment [Au tomated message] 8031442236) The system [employer] generated this result transmit derian reference range : 10*3/?L. The reference range was not used to interpret this result as normal/abnormal . NRBC/100 WBC (test code See_Comment [Au tomated message] = 0181981032) The system [facility] generated this result transmit derian reference range : 0.0 - 10.0 /100 WBC s. The reference r jordyn was not used to interpret this result as normal/abnormal . IPF % (test code = 8076274492) Lab Interpretation (test Abnormal code = 79968-0) [facility] WITHOUT [id number] 22:58:55 Test Item Value Reference Range Interpretation Comments WBC (test code = 6690-2) See_Comment [A utomated message] The system [employer] generated this result transmit derian reference range : 4.30 - 11.10 10*3/?L. The reference range was not used to interpret this result as normal/abnormal . RBC (test code = 789-8) See_Comment L [Au tomated message] The system [employer] generated this result transmit derian reference range : 3.93 - 5.25 10* 6/?L. The reference r jordyn was not used to interpret this result as normal/abnormal . HGB (test code = 718-7) 8.3 g/dL 11.6-15.0 L HCT (test code = 4544-3) 25.3 % 35.7-45.2 L MCH (test code = 785-6) 28.6 pg 25.9-32.8 MCV (test code = 787-2) 87.2 fL 80.6-95.5 MCHC (test code = 786-4) 32.8 g/dL 31.6-35.1 PLT (test code = 777-3) See_Comment [Au tomated message] The system [employer] generated this result transmit derian reference range : 166 - 358 10*3/?L. The reference range was not used to interpret this result as normal/abnormal . MPV (test code = 9.7 fL 9.5-12.9 90728-1) RDW-CV (test code = 13.8 % 12.0-15.5 788-0) RDW-SD (test code = 43.8 fL 39.0-49.9 21677-2) NRBC x10^3 (test code = <0.01 See_Comment [Au tomated message] 3313615338) The system [employer] generated this result transmit derian reference range : 10*3/?L. The reference range was not used to interpret this result as normal/abnormal . NRBC/100 WBC (test code See_Comment [Au tomated message] = 1709426939) The system [employer] generated this result transmit derian reference range : 0.0 - 10.0 /100 WBC s. The reference r jordyn was not used to interpret this result as normal/abnormal . IPF % (test code = 8862047965) Lab Interpretation (test Abnormal code = 68437-5) [facility] 2 Units 2021-11-08 21:51:35 Test Item Value Reference Range Interpretation Comments Cross Match Result Compatible (test code = 4409) ISBT Blood Type Code (test code = 677116) Unit Blood Type (test O Pos code = 4410) Unit Number (test [id number] code = 4411) Blood Expiration Date & Time (test code = 691292) Status Information Issued (test code = 4412) Product Red Blood Cells Identification (test code = 4413) Product Code (test [id number] Performed at [facility] code = 4414) Laboratory Services - [facility] Blood [address] [address]Pqjj Free: [phone] A No. [id number] [facility] ([facility] units), 2 Units 2021-11-08 21:51:35 Test Item Value Reference Range Interpretation Comments Cross Match Result Compatible (test code = 4409) ISBT Blood Type Code (test code = 324645) Unit Blood Type (test O Pos code = 4410) Unit Number (test [id number] code = 4411) Blood Expiration Date & Time (test code = 623501) Status Information Issued (test code = 4412) Product Red Blood Cells Identification (test code = 4413) Product Code (test [id number] Performed at [facility] code = 4414) Laboratory Services - [facility] Blood [address] s [address]Sgzq Free: [phone] A No. [id number] [facility] RBC (in units), 2 Units 2021-11-08 21:51:35 Test Item Value Reference Range Interpretation Comments Cross Match Result Compatible (test code = 4409) ISBT Blood Type Code (test code = 792997) Unit Blood Type (test O Pos code = 4410) Unit Number (test [id number] code = 4411) Blood Expiration Date & Time (test code = 859526) Status Information Issued (test code = 4412) Product Red Blood Cells Identification (test code = 4413) Product Code (test [id number] Performed at [facility] code = 4414) Laboratory Services - [facility] Blood [address] [address]Ayom Free: [phone] A No. [id number] [facility] RBC (in units), 2 Units 2021-11-08 21:51:35 Test Item Value Reference Range Interpretation Comments Cross Match Result Compatible (test code = 4409) ISBT Blood Type Code (test code = 539723) Unit Blood Type (test O Pos code = 4410) Unit Number (test [id number] code = 4411) Blood Expiration Date & Time (test code = 316679) Status Information Issued (test code = 4412) Product Red Blood Cells Identification (test code = 4413) Product Code (test [id number] Performed at [facility] code = 4414) Laboratory Services - [facility] Blood [address] [address]Awjl Free: [phone] A No. [id number] [facility] GLUCOSE (AUTOMATED)2021-11-08 21:14:39 Test Item Value Reference Range Interpretation Comments POCT GLU (test code = 0457417849) 93 mg/dL 70-110 Lab Interpretation (test code = Normal 08743-9) [facility] GLUCOSE (AUTOMATED)2021-11-08 21:14:39 Test Item Value Reference Range Interpretation Comments POCT GLU (test code = 5284496114) 93 mg/dL 70-110 Lab Interpretation (test code = Normal 70768-6) [facility] GLUCOSE (AUTOMATED)2021-11-08 21:14:39 Test Item Value Reference Range Interpretation Comments POCT GLU (test code = 0331915055) 93 mg/dL 70-110 Lab Interpretation (test code = Normal 24669-4) [facility] GLUCOSE (AUTOMATED)2021-11-08 16:48:11 Test Item Value Reference Range Interpretation Comments POCT GLU (test code = 3123346167) 96 mg/dL 70-110 Lab Interpretation (test code = Normal 52082-1) [facility] GLUCOSE (AUTOMATED)2021-11-08 16:48:11 Test Item Value Reference Range Interpretation Comments POCT GLU (test code = 7582920437) 96 mg/dL 70-110 Lab Interpretation (test code = Normal 18764-7) [facility] GLUCOSE (AUTOMATED)2021-11-08 16:48:11 Test Item Value Reference Range Interpretation Comments POCT GLU (test code = 5158608705) 96 mg/dL 70-110 Lab Interpretation (test code = Normal 60902-3) [facility] WITHOUT [id number] 15:52:54 Test Item Value Reference Range Interpretation Comments WBC (test code = 6690-2) See_Comment [A utomated message] The system [employer] generated this result transmit derian reference range : 4.30 - 11.10 10*3/?L. The reference range was not used to interpret this result as normal/abnormal . RBC (test code = 789-8) See_Comment L [Au tomated message] The system [employer] generated this result transmit derian reference range : 3.93 - 5.25 10* 6/?L. The reference r jordyn was not used to interpret this result as normal/abnormal . HGB (test code = 718-7) 6.3 g/dL 11.6-15.0 L HCT (test code = 4544-3) 19.3 % 35.7-45.2 L MCH (test code = 785-6) 28.3 pg 25.9-32.8 MCV (test code = 787-2) 86.5 fL 80.6-95.5 MCHC (test code = 786-4) 32.6 g/dL 31.6-35.1 PLT (test code = 777-3) See_Comment L [Au tomated message] The system [employer] generated this result transmit derian reference range : 166 - 358 10*3/?L. The reference range was not used to interpret this result as normal/abnormal . MPV (test code = 10.1 fL 9.5-12.9 06596-5) RDW-CV (test code = 14.0 % 12.0-15.5 788-0) RDW-SD (test code = 44.3 fL 39.0-49.9 02908-7) NRBC x10^3 (test code = <0.01 See_Comment [Au tomated message] [id number]) The system [employer] generated this result transmit derian reference range : 10*3/?L. The reference range was not used to interpret this result as normal/abnormal . NRBC/100 WBC (test code See_Comment [Au tomated message] = 1277187602) The system [employer] generated this result transmit derian reference range : 0.0 - 10.0 /100 WBC s. The reference r jordyn was not used to interpret this result as normal/abnormal . IPF % (test code = 2085328131) Lab Interpretation (test Abnormal code = 84307-1) [facility] WITHOUT [id number] 15:52:54 Test Item Value Reference Range Interpretation Comments WBC (test code = 6690-2) See_Comment [A utomated message] The system [employer] generated this result transmit derian reference range : 4.30 - 11.10 10*3/?L. The reference range was not used to interpret this result as normal/abnormal . RBC (test code = 789-8) See_Comment L [Au tomated message] The system [employer] generated this result transmit derian reference range : 3.93 - 5.25 10* 6/?L. The reference r jordyn was not used to interpret this result as normal/abnormal . HGB (test code = 718-7) 6.3 g/dL 11.6-15.0 L HCT (test code = 4544-3) 19.3 % 35.7-45.2 L MCH (test code = 785-6) 28.3 pg 25.9-32.8 MCV (test code = 787-2) 86.5 fL 80.6-95.5 MCHC (test code = 786-4) 32.6 g/dL 31.6-35.1 PLT (test code = 777-3) See_Comment L [Au tomated message] The system [employer] generated this result transmit derian reference range : 166 - 358 10*3/?L. The reference range was not used to interpret this result as normal/abnormal . MPV (test code = 10.1 fL 9.5-12.9 45421-9) RDW-CV (test code = 14.0 % 12.0-15.5 788-0) RDW-SD (test code = 44.3 fL 39.0-49.9 38689-6) NRBC x10^3 (test code = <0.01 See_Comment [Au tomated message] 1394077458) The system [employer] generated this result transmit derian reference range : 10*3/?L. The reference range was not used to interpret this result as normal/abnormal . NRBC/100 WBC (test code See_Comment [Au tomated message] = 4855143687) The system [facility] generated this result transmit derian reference range : 0.0 - 10.0 /100 WBC s. The reference r jordyn was not used to interpret this result as normal/abnormal . IPF % (test code = 8280488459) Lab Interpretation (test Abnormal code = 41966-3) [facility] WITHOUT [id number] 15:52:54 Test Item Value Reference Range Interpretation Comments WBC (test code = 6690-2) See_Comment [A utomated message] The system [employer] generated this result transmit derian reference range : 4.30 - 11.10 10*3/?L. The reference range was not used to interpret this result as normal/abnormal . RBC (test code = 789-8) See_Comment L [Au tomated message] The system [facility] generated this result transmit derian reference range : 3.93 - 5.25 10* 6/?L. The reference r jordyn was not used to interpret this result as normal/abnormal . HGB (test code = 718-7) 6.3 g/dL 11.6-15.0 L HCT (test code = 4544-3) 19.3 % 35.7-45.2 L MCH (test code = 785-6) 28.3 pg 25.9-32.8 MCV (test code = 787-2) 86.5 fL 80.6-95.5 MCHC (test code = 786-4) 32.6 g/dL 31.6-35.1 PLT (test code = 777-3) See_Comment L [Au tomated message] The system [employer] generated this result transmit derian reference range : 166 - 358 10*3/?L. The reference range was not used to interpret this result as normal/abnormal . MPV (test code = 10.1 fL 9.5-12.9 48876-6) RDW-CV (test code = 14.0 % 12.0-15.5 788-0) RDW-SD (test code = 44.3 fL 39.0-49.9 15694-1) NRBC x10^3 (test code = <0.01 See_Comment [Au tomated message] [id number]) The system [employer] generated this result transmit derian reference range : 10*3/?L. The reference range was not used to interpret this result as normal/abnormal . NRBC/100 WBC (test code See_Comment [Au tomated message] = 3643988084) The system [facility] generated this result transmit derian reference range : 0.0 - 10.0 /100 WBC s. The reference r jordyn was not used to interpret this result as normal/abnormal . IPF % (test code = 1079197693) Lab Interpretation (test Abnormal code = 55034-4) [facility] WITH [id number] 14:43:06 Test Item Value Reference Range Interpretation Comments WBC (test code = See_Comment [Automated 6690-2) message] The sy stem which generated this result transmitted reference range : 4.30 - 11.10 10*3/?L. The reference range was not used to interpret this result as normal/abnormal . RBC (test code = See_Comment L [Automated 789-8) message] The sy stem which generated this result transmitted reference range : 3.93 - 5.25 10*6/?L. The reference range was not used to interpret this result as normal/abnormal . HGB (test code = 5.9 g/dL 11.6-15.0 L 718-7) HCT (test code = 18.0 % 35.7-45.2 L 4544-3) MCV (test code = 86.5 fL 80.6-95.5 787-2) MCH (test code = 28.4 pg 25.9-32.8 785-6) MCHC (test code = 32.8 g/dL 31.6-35.1 786-4) RDW-SD (test code = 44.7 fL 39.0-49.9 35156-7) RDW-CV (test code = 14.0 % 12.0-15.5 788-0) PLT (test code = See_Comment L [Automated 777-3) message] The sy stem which generated this result transmitted reference range : 166 - 358 10*3/ ?L. The reference r jordyn was not used to interpret this result as normal/abnormal . MPV (test code = 9.7 fL 9.5-12.9 63951-6) NRBC/100 WBC (test See_Comment [Automat ed code = 7649571472) message] The system which generated this result transmitted reference range : 0.0 - 10.0 /100 WBCs. The refer ence range was not u sed to interpret th is result as normal/abnormal . NRBC x10^3 (test code <0.01 See_Comment [Auto mated = 7761353036) message] The s ystem which generated this result transmitted reference range : 10*3/?L. The reference range was not used to interpret this result as normal/abnormal . GRAN MAT (NEUT) % 44.4 % (test code = 770-8) IMM GRAN % (test code 0.40 % = 8004617686) LYMPH % (test code = 46.5 % 736-9) MONO % (test code = 5.8 % 5905-5) EOS % (test code = 2.3 % 713-8) BASO % (test code = 0.6 % 706-2) GRAN MAT x10^3(ANC) 2.16 10*3/uL 1.88-7.09 (test code = 9264257012) IMM GRAN x10^3 (test <0.03 0.00-0.06 code = 3396259305) LYMPH x10^3 (test code 2.26 10*3/uL 1.32-3.29 = 731-0) MONO x10^3 (test code 0.28 10*3/uL 0.33-0.92 L = 742-7) EOS x10^3 (test code = 0.11 10*3/uL 0.03-0.39 711-2) BASO x10^3 (test code 0.03 10*3/uL 0.01-0.07 = 704-7) Lab Interpretation Abnormal (test code = 77431-1) [facility] WITH [id number] 14:43:06 Test Item Value Reference Range Interpretation Comments WBC (test code = See_Comment [Automated 6690-2) message] The sy stem which generated this result transmitted reference range : 4.30 - 11.10 10*3/?L. The reference range was not used to interpret this result as normal/abnormal . RBC (test code = See_Comment L [Automated 789-8) message] The sy stem which generated this result transmitted reference range : 3.93 - 5.25 10*6/?L. The reference range was not used to interpret this result as normal/abnormal . HGB (test code = 5.9 g/dL 11.6-15.0 L 718-7) HCT (test code = 18.0 % 35.7-45.2 L 4544-3) MCV (test code = 86.5 fL 80.6-95.5 787-2) MCH (test code = 28.4 pg 25.9-32.8 785-6) MCHC (test code = 32.8 g/dL 31.6-35.1 786-4) RDW-SD (test code = 44.7 fL 39.0-49.9 25798-6) RDW-CV (test code = 14.0 % 12.0-15.5 788-0) PLT (test code = See_Comment L [Automated 777-3) message] The sy stem which generated this result transmitted reference range : 166 - 358 10*3/ ?L. The reference r jordyn was not used to interpret this result as normal/abnormal . MPV (test code = 9.7 fL 9.5-12.9 95728-7) NRBC/100 WBC (test See_Comment [Automat ed code = 3642127290) message] The system which generated this result transmitted reference range : 0.0 - 10.0 /100 WBCs. The refer ence range was not u sed to interpret th is result as normal/abnormal . NRBC x10^3 (test code <0.01 See_Comment [Auto mated = 8248595388) message] The s ystem which generated this result transmitted reference range : 10*3/?L. The reference range was not used to interpret this result as normal/abnormal . GRAN MAT (NEUT) % 44.4 % (test code = 770-8) IMM GRAN % (test code 0.40 % = 9857987596) LYMPH % (test code = 46.5 % 736-9) MONO % (test code = 5.8 % 5905-5) EOS % (test code = 2.3 % 713-8) BASO % (test code = 0.6 % 706-2) GRAN MAT x10^3(ANC) 2.16 10*3/uL 1.88-7.09 (test code = 4550774358) IMM GRAN x10^3 (test <0.03 0.00-0.06 code = 4024187172) LYMPH x10^3 (test code 2.26 10*3/uL 1.32-3.29 = 731-0) MONO x10^3 (test code 0.28 10*3/uL 0.33-0.92 L = 742-7) EOS x10^3 (test code = 0.11 10*3/uL 0.03-0.39 711-2) BASO x10^3 (test code 0.03 10*3/uL 0.01-0.07 = 704-7) Lab Interpretation Abnormal (test code = 57452-5) [facility] WITH [id number] 14:43:06 Test Item Value Reference Range Interpretation Comments WBC (test code = See_Comment [Automated 2690-2) message] The sy stem which generated this result transmitted reference range : 4.30 - 11.10 10*3/?L. The reference range was not used to interpret this result as normal/abnormal . RBC (test code = See_Comment L [Automated 739-8) message] The sy stem which generated this result transmitted reference range : 3.93 - 5.25 10*6/?L. The reference range was not used to interpret this result as normal/abnormal . HGB (test code = 5.9 g/dL 11.6-15.0 L 718-7) HCT (test code = 18.0 % 35.7-45.2 L 4544-3) MCV (test code = 86.5 fL 80.6-95.5 787-2) MCH (test code = 28.4 pg 25.9-32.8 785-6) MCHC (test code = 32.8 g/dL 31.6-35.1 786-4) RDW-SD (test code = 44.7 fL 39.0-49.9 46880-8) RDW-CV (test code = 14.0 % 12.0-15.5 788-0) PLT (test code = See_Comment L [Automated 777-3) message] The sy stem which generated this result transmitted reference range : 166 - 358 10*3/ ?L. The reference r jordyn was not used to interpret this result as normal/abnormal . MPV (test code = 9.7 fL 9.5-12.9 41141-6) NRBC/100 WBC (test See_Comment [Automat ed code = 0861793536) message] The system which generated this result transmitted reference range : 0.0 - 10.0 /100 WBCs. The refer ence range was not u sed to interpret th is result as normal/abnormal . NRBC x10^3 (test code <0.01 See_Comment [Auto mated = 1236634730) message] The s ystem which generated this result transmitted reference range : 10*3/?L. The reference range was not used to interpret this result as normal/abnormal . GRAN MAT (NEUT) % 44.4 % (test code = 770-8) IMM GRAN % (test code 0.40 % = 8398540983) LYMPH % (test code = 46.5 % 736-9) MONO % (test code = 5.8 % 5905-5) EOS % (test code = 2.3 % 713-8) BASO % (test code = 0.6 % 706-2) GRAN MAT x10^3(ANC) 2.16 10*3/uL 1.88-7.09 (test code = 0157891503) IMM GRAN x10^3 (test <0.03 0.00-0.06 code = 3600890874) LYMPH x10^3 (test code 2.26 10*3/uL 1.32-3.29 = 731-0) MONO x10^3 (test code 0.28 10*3/uL 0.33-0.92 L = 742-7) EOS x10^3 (test code = 0.11 10*3/uL 0.03-0.39 711-2) BASO x10^3 (test code 0.03 10*3/uL 0.01-0.07 = 704-7) Lab Interpretation Abnormal (test code = 86637-5) [facility] GLUCOSE (AUTOMATED)2021-11-08 12:14:23 Test Item Value Reference Range Interpretation Comments POCT GLU (test code = 1078309701) 110 mg/dL 70-110 Lab Interpretation (test code = Normal 97087-3) [facility] GLUCOSE (AUTOMATED)2021-11-08 12:14:23 Test Item Value Reference Range Interpretation Comments POCT GLU (test code = 7087973645) 110 mg/dL 70-110 Lab Interpretation (test code = Normal 41178-8) [facility] GLUCOSE (AUTOMATED)2021-11-08 12:14:23 Test Item Value Reference Range Interpretation Comments POCT GLU (test code = 4854421823) 110 mg/dL 70-110 Lab Interpretation (test code = Normal 00491-0) [facility] METABOLIC PANEL (NA, K, CL, CO2, GLUCOSE, BUN, CREATININE, CA)2021-11-08 08:37:12 Test Item Value Reference Range Interpretation Comments NA (test code = 139 mmol/L 135-145 4626882927) K (test code = 3.7 mmol/L 3.5-5.0 8416122182) CL (test code = 112 mmol/L 98-108 H 5959369727) CO2 TOTAL (test code = 24 mmol/L 23-31 0008217149) AGAP (test code = 2-16 5809233159) BUN (test code = 10 mg/dL 7-23 0701525409) GLUCOSE (test code = 106 mg/dL 70-110 8924809512) CREATININE (test code = 0.81 mg/dL 0.50-1.04 6933026649) CALCIUM (test code = 7.8 mg/dL 8.6-10.6 L 3455825763) eGFR (test code = mL/min/1.73m2 5324813976) ALYSSA (test code = ALYSSA) Association of Glomerular Filtration Rate (GFR) and Staging of Kidney Disease* + --+ --+ ------+| GFR (mL/min/1.73 m2) ?| With Kidney Damage ?| ?Without Kidney Damage+ --------+ --------+ +| ?>90 ?| ?Stage one ?| ? Normal ?+ ---+ ---+ -------+| ?60-89 ?| ?Stage two ?| ? Decreased GFR ? + --+ --+ ------+| ?30-59 ?| ?Stage three ?| ? Stage three ? + --+ --+ ------+| ?15-29 ?| ?Stage four ? | ? Stage four ?+ ---+ ---+ -------+| ?<15 (or dialysis) ? ?| ?Stage five ? | ? Stage five ?+ ---+ ---+ -------+ *Each stage assumes the associated GFR level has been in effect for at least three months. ?Stages 1 to 5, with or without kidney disease, indicate chronic kidney disease. Notes: Determination of stages one and two (with eGFR >59mL/min/1.73 m2) requires estimation of kidney damage for at least three months as defined by structural or functional abnormalities of the kidney, manifested by either:Pathological abnormalities or Markers of kidney damage (including abnormalities in the composition of the blood or urine or abnormalities in imaging tests). Lab Interpretation Abnormal (test code = 54445-2) [facility] Test Item Value Reference Range Interpretation Comments MAGNESIUM (test code = 5857857774) 1.7 mg/dL 1.7-2.4 Lab Interpretation (test code = Normal 88997-6) [facility] (NA, K, CL, CO2, GLUCOSE, BUN, CREATININE, CA)2021-11-08 08:37:12 Test Item Value Reference Range Interpretation Comments NA (test code = 139 mmol/L 135-145 6625152063) K (test code = 3.7 mmol/L 3.5-5.0 7120111331) CL (test code = 112 mmol/L 98-108 H 2374297170) CO2 TOTAL (test code = 24 mmol/L 23-31 0277540280) AGAP (test code = 2-16 9645716643) BUN (test code = 10 mg/dL 7-23 1084874320) GLUCOSE (test code = 106 mg/dL 70-110 1670021836) CREATININE (test code = 0.81 mg/dL 0.50-1.04 2493164356) CALCIUM (test code = 7.8 mg/dL 8.6-10.6 L 1166717629) eGFR (test code = mL/min/1.73m2 9565766137) ALYSSA (test code = ALYSSA) Association of Glomerular Filtration Rate (GFR) and Staging of Kidney Disease* + --+ --+ ------+| GFR (mL/min/1.73 m2) ?| With Kidney Damage ?| ?Without Kidney Damage+ --------+ --------+ +| ?>90 ?| ?Stage one ?| ? Normal ?+ ---+ ---+ -------+| ?60-89 ?| ?Stage two ?| ? Decreased GFR ? + --+ --+ ------+| ?30-59 ?| ?Stage three ?| ? Stage three ? + --+ --+ ------+| ?15-29 ?| ?Stage four ? | ? Stage four ?+ ---+ ---+ -------+| ?<15 (or dialysis) ? ?| ?Stage five ? | ? Stage five ?+ ---+ ---+ -------+ *Each stage assumes the associated GFR level has been in effect for at least three months. ?Stages 1 to 5, with or without kidney disease, indicate chronic kidney disease. Notes: Determination of stages one and two (with eGFR >59mL/min/1.73 m2) requires estimation of kidney damage for at least three months as defined by structural or functional abnormalities of the kidney, manifested by either:Pathological abnormalities or Markers of kidney damage (including abnormalities in the composition of the blood or urine or abnormalities in imaging tests). Lab Interpretation Abnormal (test code = 05596-6) [facility]12 Test Item Value Reference Range Interpretation Comments MAGNESIUM (test code = 3887481536) 1.7 mg/dL 1.7-2.4 Lab Interpretation (test code = Normal 13678-8) [facility] (NA, K, CL, CO2, GLUCOSE, BUN, CREATININE, CA)2021-11-08 08:37:12 Test Item Value Reference Range Interpretation Comments NA (test code = 139 mmol/L 135-145 3043615486) K (test code = 3.7 mmol/L 3.5-5.0 7485004705) CL (test code = 112 mmol/L 98-108 H 0611002198) CO2 TOTAL (test code = 24 mmol/L 23-31 2092355297) AGAP (test code = 2-16 9731025263) BUN (test code = 10 mg/dL 7-23 7272226768) GLUCOSE (test code = 106 mg/dL 70-110 3259380620) CREATININE (test code = 0.81 mg/dL 0.50-1.04 2209641821) CALCIUM (test code = 7.8 mg/dL 8.6-10.6 L 0962551970) eGFR (test code = mL/min/1.73m2 9516183285) ALYSSA (test code = ALYSSA) Association of Glomerular Filtration Rate (GFR) and Staging of Kidney Disease* + --+ --+ ------+| GFR (mL/min/1.73 m2) ?| With Kidney Damage ?| ?Without Kidney Damage+ --------+ --------+ +| ?>90 ?| ?Stage one ?| ? Normal ?+ ---+ ---+ -------+| ?60-89 ?| ?Stage two ?| ? Decreased GFR ? + --+ --+ ------+| ?30-59 ?| ?Stage three ?| ? Stage three ? + --+ --+ ------+| ?15-29 ?| ?Stage four ? | ? Stage four ?+ ---+ ---+ -------+| ?<15 (or dialysis) ? ?| ?Stage five ? | ? Stage five ?+ ---+ ---+ -------+ *Each stage assumes the associated GFR level has been in effect for at least three months. ?Stages 1 to 5, with or without kidney disease, indicate chronic kidney disease. Notes: Determination of stages one and two (with eGFR >59mL/min/1.73 m2) requires estimation of kidney damage for at least three months as defined by structural or functional abnormalities of the kidney, manifested by either:Pathological abnormalities or Markers of kidney damage (including abnormalities in the composition of the blood or urine or abnormalities in imaging tests). Lab Interpretation Abnormal (test code = 81947-1) [facility]12 Test Item Value Reference Range Interpretation Comments MAGNESIUM (test code = 4789625599) 1.7 mg/dL 1.7-2.4 Lab Interpretation (test code = Normal 33484-5) [facility] WITH [id number] 08:14:12 Test Item Value Reference Range Interpretation Comments WBC (test code = See_Comment [Automated 6690-2) message] The sy stem which generated this result transmitted reference range : 4.30 - 11.10 10*3/?L. The reference range was not used to interpret this result as normal/abnormal . RBC (test code = See_Comment L [Automated 789-8) message] The sy stem which generated this result transmitted reference range : 3.93 - 5.25 10*6/?L. The reference range was not used to interpret this result as normal/abnormal . HGB (test code = 7.0 g/dL 11.6-15.0 L 718-7) HCT (test code = 21.3 % 35.7-45.2 L 4544-3) MCV (test code = 86.6 fL 80.6-95.5 787-2) MCH (test code = 28.5 pg 25.9-32.8 785-6) MCHC (test code = 32.9 g/dL 31.6-35.1 786-4) RDW-SD (test code = 43.6 fL 39.0-49.9 84904-2) RDW-CV (test code = 13.8 % 12.0-15.5 788-0) PLT (test code = See_Comment L [Automated 777-3) message] The sy stem which generated this result transmitted reference range : 166 - 358 10*3/ ?L. The reference r jordyn was not used to interpret this result as normal/abnormal . MPV (test code = 9.8 fL 9.5-12.9 04847-1) NRBC/100 WBC (test See_Comment [Automat ed code = 3891035959) message] The system which generated this result transmitted reference range : 0.0 - 10.0 /100 WBCs. The refer ence range was not u sed to interpret th is result as normal/abnormal . NRBC x10^3 (test code <0.01 See_Comment [Auto mated = 1593954357) message] The s ystem which generated this result transmitted reference range : 10*3/?L. The reference range was not used to interpret this result as normal/abnormal . GRAN MAT (NEUT) % 51.8 % (test code = 770-8) IMM GRAN % (test code 0.50 % = 1465372583) LYMPH % (test code = 39.7 % 736-9) MONO % (test code = 5.9 % 5905-5) EOS % (test code = 1.6 % 713-8) BASO % (test code = 0.5 % 706-2) GRAN MAT x10^3(ANC) 3.25 10*3/uL 1.88-7.09 (test code = 4544695722) IMM GRAN x10^3 (test 0.03 10*3/uL 0.00-0.06 code = 5652301736) LYMPH x10^3 (test code 2.49 10*3/uL 1.32-3.29 = 731-0) MONO x10^3 (test code 0.37 10*3/uL 0.33-0.92 = 742-7) EOS x10^3 (test code = 0.10 10*3/uL 0.03-0.39 711-2) BASO x10^3 (test code 0.03 10*3/uL 0.01-0.07 = 704-7) Lab Interpretation Abnormal (test code = 81619-1) [facility] WITH [id number] 08:14:12 Test Item Value Reference Range Interpretation Comments WBC (test code = See_Comment [Automated 6690-2) message] The sy stem which generated this result transmitted reference range : 4.30 - 11.10 10*3/?L. The reference range was not used to interpret this result as normal/abnormal . RBC (test code = See_Comment L [Automated 789-8) message] The sy stem which generated this result transmitted reference range : 3.93 - 5.25 10*6/?L. The reference range was not used to interpret this result as normal/abnormal . HGB (test code = 7.0 g/dL 11.6-15.0 L 718-7) HCT (test code = 21.3 % 35.7-45.2 L 4544-3) MCV (test code = 86.6 fL 80.6-95.5 787-2) MCH (test code = 28.5 pg 25.9-32.8 785-6) MCHC (test code = 32.9 g/dL 31.6-35.1 786-4) RDW-SD (test code = 43.6 fL 39.0-49.9 83180-4) RDW-CV (test code = 13.8 % 12.0-15.5 788-0) PLT (test code = See_Comment L [Automated 777-3) message] The sy stem which generated this result transmitted reference range : 166 - 358 10*3/ ?L. The reference r jordyn was not used to interpret this result as normal/abnormal . MPV (test code = 9.8 fL 9.5-12.9 00764-3) NRBC/100 WBC (test See_Comment [Automat ed code = 0519884594) message] The system which generated this result transmitted reference range : 0.0 - 10.0 /100 WBCs. The refer ence range was not u sed to interpret th is result as normal/abnormal . NRBC x10^3 (test code <0.01 See_Comment [Auto mated = 4573802707) message] The s ystem which generated this result transmitted reference range : 10*3/?L. The reference range was not used to interpret this result as normal/abnormal . GRAN MAT (NEUT) % 51.8 % (test code = 770-8) IMM GRAN % (test code 0.50 % = 1441626486) LYMPH % (test code = 39.7 % 736-9) MONO % (test code = 5.9 % 5905-5) EOS % (test code = 1.6 % 713-8) BASO % (test code = 0.5 % 706-2) GRAN MAT x10^3(ANC) 3.25 10*3/uL 1.88-7.09 (test code = 2080631332) IMM GRAN x10^3 (test 0.03 10*3/uL 0.00-0.06 code = 6146430379) LYMPH x10^3 (test code 2.49 10*3/uL 1.32-3.29 = 731-0) MONO x10^3 (test code 0.37 10*3/uL 0.33-0.92 = 742-7) EOS x10^3 (test code = 0.10 10*3/uL 0.03-0.39 711-2) BASO x10^3 (test code 0.03 10*3/uL 0.01-0.07 = 704-7) Lab Interpretation Abnormal (test code = 18286-1) [facility] WITH [id number] 08:14:12 Test Item Value Reference Range Interpretation Comments WBC (test code = See_Comment [Automated 1890-2) message] The sy stem which generated this result transmitted reference range : 4.30 - 11.10 10*3/?L. The reference range was not used to interpret this result as normal/abnormal . RBC (test code = See_Comment L [Automated 529-8) message] The sy stem which generated this result transmitted reference range : 3.93 - 5.25 10*6/?L. The reference range was not used to interpret this result as normal/abnormal . HGB (test code = 7.0 g/dL 11.6-15.0 L 718-7) HCT (test code = 21.3 % 35.7-45.2 L 4544-3) MCV (test code = 86.6 fL 80.6-95.5 787-2) MCH (test code = 28.5 pg 25.9-32.8 785-6) MCHC (test code = 32.9 g/dL 31.6-35.1 786-4) RDW-SD (test code = 43.6 fL 39.0-49.9 49840-2) RDW-CV (test code = 13.8 % 12.0-15.5 788-0) PLT (test code = See_Comment L [Automated 777-3) message] The sy stem which generated this result transmitted reference range : 166 - 358 10*3/ ?L. The reference r jordyn was not used to interpret this result as normal/abnormal . MPV (test code = 9.8 fL 9.5-12.9 48244-1) NRBC/100 WBC (test See_Comment [Automat ed code = 5935888134) message] The system which generated this result transmitted reference range : 0.0 - 10.0 /100 WBCs. The refer ence range was not u sed to interpret th is result as normal/abnormal . NRBC x10^3 (test code <0.01 See_Comment [Auto mated = 0013155183) message] The s ystem which generated this result transmitted reference range : 10*3/?L. The reference range was not used to interpret this result as normal/abnormal . GRAN MAT (NEUT) % 51.8 % (test code = 770-8) IMM GRAN % (test code 0.50 % = 6260977595) LYMPH % (test code = 39.7 % 736-9) MONO % (test code = 5.9 % 5905-5) EOS % (test code = 1.6 % 713-8) BASO % (test code = 0.5 % 706-2) GRAN MAT x10^3(ANC) 3.25 10*3/uL 1.88-7.09 (test code = 3131201904) IMM GRAN x10^3 (test 0.03 10*3/uL 0.00-0.06 code = 3152608571) LYMPH x10^3 (test code 2.49 10*3/uL 1.32-3.29 = 731-0) MONO x10^3 (test code 0.37 10*3/uL 0.33-0.92 = 742-7) EOS x10^3 (test code = 0.10 10*3/uL 0.03-0.39 711-2) BASO x10^3 (test code 0.03 10*3/uL 0.01-0.07 = 704-7) Lab Interpretation Abnormal (test code = 84430-8) [facility] GLUCOSE (AUTOMATED)2021-11-08 02:11:18 Test Item Value Reference Range Interpretation Comments POCT GLU (test code = 0428552354) 104 mg/dL 70-110 Lab Interpretation (test code = Normal 45870-2) [facility] GLUCOSE (AUTOMATED)2021-11-08 02:11:18 Test Item Value Reference Range Interpretation Comments POCT GLU (test code = 5694609659) 104 mg/dL 70-110 Lab Interpretation (test code = Normal 79955-0) [facility] GLUCOSE (AUTOMATED)2021-11-08 02:11:18 Test Item Value Reference Range Interpretation Comments POCT GLU (test code = 5431482868) 104 mg/dL 70-110 Lab Interpretation (test code = Normal 34004-3) [facility] WITH [id number] 00:12:33 Test Item Value Reference Range Interpretation Comments WBC (test code = See_Comment [Automated 6690-2) message] The sy stem which generated this result transmitted reference range : 4.30 - 11.10 10*3/?L. The reference range was not used to interpret this result as normal/abnormal . RBC (test code = See_Comment L [Automated 789-8) message] The sy stem which generated this result transmitted reference range : 3.93 - 5.25 10*6/?L. The reference range was not used to interpret this result as normal/abnormal . HGB (test code = 7.6 g/dL 11.6-15.0 L 718-7) HCT (test code = 23.5 % 35.7-45.2 L 4544-3) MCV (test code = 87.7 fL 80.6-95.5 787-2) MCH (test code = 28.4 pg 25.9-32.8 785-6) MCHC (test code = 32.3 g/dL 31.6-35.1 786-4) RDW-SD (test code = 43.9 fL 39.0-49.9 36072-5) RDW-CV (test code = 13.8 % 12.0-15.5 788-0) PLT (test code = See_Comment [Automated 777-3) message] The sy stem which generated this result transmitted reference range : 166 - 358 10*3/ ?L. The reference r jordyn was not used to interpret this result as normal/abnormal . MPV (test code = 9.8 fL 9.5-12.9 54820-6) NRBC/100 WBC (test See_Comment [Automat ed code = 7906974684) message] The system which generated this result transmitted reference range : 0.0 - 10.0 /100 WBCs. The refer ence range was not u sed to interpret th is result as normal/abnormal . NRBC x10^3 (test code <0.01 See_Comment [Auto mated = 0260987690) message] The s ystem which generated this result transmitted reference range : 10*3/?L. The reference range was not used to interpret this result as normal/abnormal . GRAN MAT (NEUT) % 54.7 % (test code = 770-8) IMM GRAN % (test code 0.30 % = 7305274914) LYMPH % (test code = 37.1 % 736-9) MONO % (test code = 5.2 % 5905-5) EOS % (test code = 1.9 % 713-8) BASO % (test code = 0.8 % 706-2) GRAN MAT x10^3(ANC) 3.39 10*3/uL 1.88-7.09 (test code = 2308768875) IMM GRAN x10^3 (test <0.03 0.00-0.06 code = 5728778991) LYMPH x10^3 (test code 2.30 10*3/uL 1.32-3.29 = 731-0) MONO x10^3 (test code 0.32 10*3/uL 0.33-0.92 L = 742-7) EOS x10^3 (test code = 0.12 10*3/uL 0.03-0.39 711-2) BASO x10^3 (test code 0.05 10*3/uL 0.01-0.07 = 704-7) Lab Interpretation Abnormal (test code = 24720-1) [facility] WITH [id number] 00:12:33 Test Item Value Reference Range Interpretation Comments WBC (test code = See_Comment [Automated 6690-2) message] The sy stem which generated this result transmitted reference range : 4.30 - 11.10 10*3/?L. The reference range was not used to interpret this result as normal/abnormal . RBC (test code = See_Comment L [Automated 789-8) message] The sy stem which generated this result transmitted reference range : 3.93 - 5.25 10*6/?L. The reference range was not used to interpret this result as normal/abnormal . HGB (test code = 7.6 g/dL 11.6-15.0 L 718-7) HCT (test code = 23.5 % 35.7-45.2 L 4544-3) MCV (test code = 87.7 fL 80.6-95.5 787-2) MCH (test code = 28.4 pg 25.9-32.8 785-6) MCHC (test code = 32.3 g/dL 31.6-35.1 786-4) RDW-SD (test code = 43.9 fL 39.0-49.9 50800-7) RDW-CV (test code = 13.8 % 12.0-15.5 788-0) PLT (test code = See_Comment [Automated 777-3) message] The sy stem which generated this result transmitted reference range : 166 - 358 10*3/ ?L. The reference r jordyn was not used to interpret this result as normal/abnormal . MPV (test code = 9.8 fL 9.5-12.9 03429-9) NRBC/100 WBC (test See_Comment [Automat ed code = [id number]) message] The system which generated this result transmitted reference range : 0.0 - 10.0 /100 WBCs. The refer ence range was not u sed to interpret th is result as normal/abnormal . NRBC x10^3 (test code <0.01 See_Comment [Auto mated = [id number]) message] The s ystem which generated this result transmitted reference range : 10*3/?L. The reference range was not used to interpret this result as normal/abnormal . GRAN MAT (NEUT) % 54.7 % (test code = 770-8) IMM GRAN % (test code 0.30 % = [id number]) LYMPH % (test code = 37.1 % 736-9) MONO % (test code = 5.2 % 5905-5) EOS % (test code = 1.9 % 713-8) BASO % (test code = 0.8 % 706-2) GRAN MAT x10^3(ANC) 3.39 10*3/uL 1.88-7.09 (test code = 9347966444) IMM GRAN x10^3 (test <0.03 0.00-0.06 code = 2819671840) LYMPH x10^3 (test code 2.30 10*3/uL 1.32-3.29 = 731-0) MONO x10^3 (test code 0.32 10*3/uL 0.33-0.92 L = 742-7) EOS x10^3 (test code = 0.12 10*3/uL 0.03-0.39 711-2) BASO x10^3 (test code 0.05 10*3/uL 0.01-0.07 = 704-7) Lab Interpretation Abnormal (test code = 16130-0) [facility] WITH [id number] 00:12:33 Test Item Value Reference Range Interpretation Comments WBC (test code = See_Comment [Automated 8576-2) message] The sy stem which generated this result transmitted reference range : 4.30 - 11.10 10*3/?L. The reference range was not used to interpret this result as normal/abnormal . RBC (test code = See_Comment L [Automated 749-8) message] The sy stem which generated this result transmitted reference range : 3.93 - 5.25 10*6/?L. The reference range was not used to interpret this result as normal/abnormal . HGB (test code = 7.6 g/dL 11.6-15.0 L 718-7) HCT (test code = 23.5 % 35.7-45.2 L 4544-3) MCV (test code = 87.7 fL 80.6-95.5 787-2) MCH (test code = 28.4 pg 25.9-32.8 785-6) MCHC (test code = 32.3 g/dL 31.6-35.1 786-4) RDW-SD (test code = 43.9 fL 39.0-49.9 73463-3) RDW-CV (test code = 13.8 % 12.0-15.5 788-0) PLT (test code = See_Comment [Automated 777-3) message] The sy stem which generated this result transmitted reference range : 166 - 358 10*3/ ?L. The reference r jordyn was not used to interpret this result as normal/abnormal . MPV (test code = 9.8 fL 9.5-12.9 96975-2) NRBC/100 WBC (test See_Comment [Automat ed code = 2086900546) message] The system which generated this result transmitted reference range : 0.0 - 10.0 /100 WBCs. The refer ence range was not u sed to interpret th is result as normal/abnormal . NRBC x10^3 (test code <0.01 See_Comment [Auto mated = 7891479382) message] The s ystem which generated this result transmitted reference range : 10*3/?L. The reference range was not used to interpret this result as normal/abnormal . GRAN MAT (NEUT) % 54.7 % (test code = 770-8) IMM GRAN % (test code 0.30 % = 7995592946) LYMPH % (test code = 37.1 % 736-9) MONO % (test code = 5.2 % 5905-5) EOS % (test code = 1.9 % 713-8) BASO % (test code = 0.8 % 706-2) GRAN MAT x10^3(ANC) 3.39 10*3/uL 1.88-7.09 (test code = 2240608532) IMM GRAN x10^3 (test <0.03 0.00-0.06 code = 6442213352) LYMPH x10^3 (test code 2.30 10*3/uL 1.32-3.29 = 731-0) MONO x10^3 (test code 0.32 10*3/uL 0.33-0.92 L = 742-7) EOS x10^3 (test code = 0.12 10*3/uL 0.03-0.39 711-2) BASO x10^3 (test code 0.05 10*3/uL 0.01-0.07 = 704-7) Lab Interpretation Abnormal (test code = 47732-8) [facility] GLUCOSE (AUTOMATED)2021-11-07 22:58:51 Test Item Value Reference Range Interpretation Comments POCT GLU (test code = 1234316172) 122 mg/dL 70-110 H Lab Interpretation (test code = Abnormal 22017-8) [facility] GLUCOSE (AUTOMATED)2021-11-07 22:58:51 Test Item Value Reference Range Interpretation Comments POCT GLU (test code = 6775021557) 122 mg/dL 70-110 H Lab Interpretation (test code = Abnormal 06321-3) [facility] GLUCOSE (AUTOMATED)2021-11-07 22:58:51 Test Item Value Reference Range Interpretation Comments POCT GLU (test code = 5289765270) 122 mg/dL 70-110 H Lab Interpretation (test code = Abnormal 80383-6) [facility] GLUCOSE (AUTOMATED)2021-11-07 21:09:07 Test Item Value Reference Range Interpretation Comments POCT GLU (test code = 0677604806) 96 mg/dL 70-110 Lab Interpretation (test code = Normal 32994-3) [facility] GLUCOSE (AUTOMATED)2021-11-07 21:09:07 Test Item Value Reference Range Interpretation Comments POCT GLU (test code = 8251096811) 96 mg/dL 70-110 Lab Interpretation (test code = Normal 55142-0) [facility] GLUCOSE (AUTOMATED)2021-11-07 21:09:07 Test Item Value Reference Range Interpretation Comments POCT GLU (test code = 9279915494) 96 mg/dL 70-110 Lab Interpretation (test code = Normal 76793-9) [facility] Units 2021-11-07 20:41:48 Test Item Value Reference Range Interpretation Comments Cross Match Result Compatible (test code = 4409) ISBT Blood Type Code (test code = 915831) Unit Blood Type (test O Pos code = 4410) Unit Number (test [id number] code = 4411) Blood Expiration Date & Time (test code = 126836) Status Information Issued (test code = 4412) Product Red Blood Cells Identification (test code = 4413) Product Code (test M5338P95 Performed at [facility] code = 4414) Laboratory Services - [facility] Blood [address] [address]Blph Free: [phone] A No. [id number] [facility] Packed RBC (in units), 1 Units 2021-11-07 20:41:48 Test Item Value Reference Range Interpretation Comments Cross Match Result Compatible (test code = 4409) ISBT Blood Type Code (test code = 230555) Unit Blood Type (test O Pos code = 4410) Unit Number (test [id number] code = 4411) Blood Expiration Date & Time (test code = 203580) Status Information Issued (test code = 4412) Product Red Blood Cells Identification (test code = 4413) Product Code (test I4634T91 Performed at [facility] code = 4414) Laboratory Services - [facility] Blood [address] [address]Clup Free: [phone] A No. [id number] [facility] Packed RBC (in units), 1 Units 2021-11-07 20:41:48 Test Item Value Reference Range Interpretation Comments Cross Match Result Compatible (test code = 4409) ISBT Blood Type Code (test code = 433907) Unit Blood Type (test O Pos code = 4410) Unit Number (test [id number] code = 4411) Blood Expiration Date & Time (test code = 214630) Status Information Issued (test code = 4412) Product Red Blood Cells Identification (test code = 4413) Product Code (test E0329L28 Performed at [facility] code = 4414) Laboratory Services - [facility] Blood [address] [address]Diab Free: [phone] A No. [id number] [facility] WITHOUT [id number] 19:18:40 Test Item Value Reference Range Interpretation Comments WBC (test code = 6690-2) See_Comment L [A utomated message] The system [employer] generated this result transmit derian reference range : 4.30 - 11.10 10*3/?L. The reference range was not used to interpret this result as normal/abnormal . RBC (test code = 789-8) See_Comment L [Au tomated message] The system [employer] generated this result transmit derian reference range : 3.93 - 5.25 10* 6/?L. The reference r jordyn was not used to interpret this result as normal/abnormal . HGB (test code = 718-7) 6.2 g/dL 11.6-15.0 L HCT (test code = 4544-3) 20.0 % 35.7-45.2 L MCH (test code = 785-6) 27.9 pg 25.9-32.8 MCV (test code = 787-2) 90.1 fL 80.6-95.5 MCHC (test code = 786-4) 31.0 g/dL 31.6-35.1 L PLT (test code = 777-3) See_Comment L [Au tomated message] The system [employer] generated this result transmit derian reference range : 166 - 358 10*3/?L. The reference range was not used to interpret this result as normal/abnormal . MPV (test code = 10.4 fL 9.5-12.9 54375-5) RDW-CV (test code = 13.2 % 12.0-15.5 788-0) RDW-SD (test code = 43.4 fL 39.0-49.9 41618-6) NRBC x10^3 (test code = <0.01 See_Comment [Au tomated message] 8614012121) The system [employer] generated this result transmit derian reference range : 10*3/?L. The reference range was not used to interpret this result as normal/abnormal . NRBC/100 WBC (test code See_Comment [Au tomated message] = 8709379804) The system [facility] generated this result transmit derian reference range : 0.0 - 10.0 /100 WBC s. The reference r jordyn was not used to interpret this result as normal/abnormal . IPF % (test code = 0961417052) Lab Interpretation (test Abnormal code = 17772-5) [facility] WITHOUT [id number] 19:18:40 Test Item Value Reference Range Interpretation Comments WBC (test code = 6690-2) See_Comment L [A utomated message] The system [employer] generated this result transmit derian reference range : 4.30 - 11.10 10*3/?L. The reference range was not used to interpret this result as normal/abnormal . RBC (test code = 789-8) See_Comment L [Au tomated message] The system [employer] generated this result transmit derian reference range : 3.93 - 5.25 10* 6/?L. The reference r jordyn was not used to interpret this result as normal/abnormal . HGB (test code = 718-7) 6.2 g/dL 11.6-15.0 L HCT (test code = 4544-3) 20.0 % 35.7-45.2 L MCH (test code = 785-6) 27.9 pg 25.9-32.8 MCV (test code = 787-2) 90.1 fL 80.6-95.5 MCHC (test code = 786-4) 31.0 g/dL 31.6-35.1 L PLT (test code = 777-3) See_Comment L [Au tomated message] The system [employer] generated this result transmit derian reference range : 166 - 358 10*3/?L. The reference range was not used to interpret this result as normal/abnormal . MPV (test code = 10.4 fL 9.5-12.9 27331-4) RDW-CV (test code = 13.2 % 12.0-15.5 788-0) RDW-SD (test code = 43.4 fL 39.0-49.9 98604-7) NRBC x10^3 (test code = <0.01 See_Comment [Au tomated message] 9147466557) The system [employer] generated this result transmit derian reference range : 10*3/?L. The reference range was not used to interpret this result as normal/abnormal . NRBC/100 WBC (test code See_Comment [Au tomated message] = 6309555274) The system [employer] generated this result transmit derian reference range : 0.0 - 10.0 /100 WBC s. The reference r jordyn was not used to interpret this result as normal/abnormal . IPF % (test code = 1377439533) Lab Interpretation (test Abnormal code = 50392-4) [facility] WITHOUT [id number] 19:18:40 Test Item Value Reference Range Interpretation Comments WBC (test code = 6690-2) See_Comment L [A utomated message] The system [employer] generated this result transmit derian reference range : 4.30 - 11.10 10*3/?L. The reference range was not used to interpret this result as normal/abnormal . RBC (test code = 789-8) See_Comment L [Au tomated message] The system [employer] generated this result transmit derian reference range : 3.93 - 5.25 10* 6/?L. The reference r jordyn was not used to interpret this result as normal/abnormal . HGB (test code = 718-7) 6.2 g/dL 11.6-15.0 L HCT (test code = 4544-3) 20.0 % 35.7-45.2 L MCH (test code = 785-6) 27.9 pg 25.9-32.8 MCV (test code = 787-2) 90.1 fL 80.6-95.5 MCHC (test code = 786-4) 31.0 g/dL 31.6-35.1 L PLT (test code = 777-3) See_Comment L [Au tomated message] The system [employer] generated this result transmit derian reference range : 166 - 358 10*3/?L. The reference range was not used to interpret this result as normal/abnormal . MPV (test code = 10.4 fL 9.5-12.9 90971-1) RDW-CV (test code = 13.2 % 12.0-15.5 788-0) RDW-SD (test code = 43.4 fL 39.0-49.9 52570-0) NRBC x10^3 (test code = <0.01 See_Comment [Au tomated message] 0433526324) The system [employer] generated this result transmit derian reference range : 10*3/?L. The reference range was not used to interpret this result as normal/abnormal . NRBC/100 WBC (test code See_Comment [Au tomated message] = 3681651356) The system [employer] generated this result transmit derian reference range : 0.0 - 10.0 /100 WBC s. The reference r jordyn was not used to interpret this result as normal/abnormal . IPF % (test code = 7597431269) Lab Interpretation (test Abnormal code = 95594-7) [facility] GLUCOSE (AUTOMATED)2021-11-07 16:22:17 Test Item Value Reference Range Interpretation Comments POCT GLU (test code = 4223268657) 113 mg/dL 70-110 H Lab Interpretation (test code = Abnormal 62395-2) [facility] GLUCOSE (AUTOMATED)2021-11-07 16:22:17 Test Item Value Reference Range Interpretation Comments POCT GLU (test code = 2086811619) 113 mg/dL 70-110 H Lab Interpretation (test code = Abnormal 67846-6) [facility] GLUCOSE (AUTOMATED)2021-11-07 16:22:17 Test Item Value Reference Range Interpretation Comments POCT GLU (test code = 7875824483) 113 mg/dL 70-110 H Lab Interpretation (test code = Abnormal 08644-7) [facility] WITHOUT [id number] 14:02:03 Test Item Value Reference Range Interpretation Comments WBC (test code = 6690-2) See_Comment L [A utomated message] The system [employer] generated this result transmit derian reference range : 4.30 - 11.10 10*3/?L. The reference range was not used to interpret this result as normal/abnormal . RBC (test code = 789-8) See_Comment L [Au tomated message] The system [employer] generated this result transmit derian reference range : 3.93 - 5.25 10* 6/?L. The reference r jordyn was not used to interpret this result as normal/abnormal . HGB (test code = 718-7) 7.7 g/dL 11.6-15.0 L HCT (test code = 4544-3) 24.2 % 35.7-45.2 L MCH (test code = 785-6) 28.1 pg 25.9-32.8 MCV (test code = 787-2) 88.3 fL 80.6-95.5 MCHC (test code = 786-4) 31.8 g/dL 31.6-35.1 PLT (test code = 777-3) See_Comment [Au tomated message] The system [facility] generated this result transmit derian reference range : 166 - 358 10*3/?L. The reference range was not used to interpret this result as normal/abnormal . MPV (test code = 9.5 fL 9.5-12.9 42114-3) RDW-CV (test code = 13.1 % 12.0-15.5 788-0) RDW-SD (test code = 42.2 fL 39.0-49.9 28124-9) NRBC x10^3 (test code = <0.01 See_Comment [Au tomated message] 9443919618) The system [facility] generated this result transmit derian reference range : 10*3/?L. The reference range was not used to interpret this result as normal/abnormal . NRBC/100 WBC (test code See_Comment [Au tomated message] = 5053267093) The system [facility] generated this result transmit derian reference range : 0.0 - 10.0 /100 WBC s. The reference r jordyn was not used to interpret this result as normal/abnormal . IPF % (test code = 4265107213) Lab Interpretation (test Abnormal code = 66651-5) [facility] WITHOUT [id number] 14:02:03 Test Item Value Reference Range Interpretation Comments WBC (test code = 6690-2) See_Comment L [A utomated message] The system [facility] generated this result transmit derian reference range : 4.30 - 11.10 10*3/?L. The reference range was not used to interpret this result as normal/abnormal . RBC (test code = 789-8) See_Comment L [Au tomated message] The system [facility] generated this result transmit derian reference range : 3.93 - 5.25 10* 6/?L. The reference r jordyn was not used to interpret this result as normal/abnormal . HGB (test code = 718-7) 7.7 g/dL 11.6-15.0 L HCT (test code = 4544-3) 24.2 % 35.7-45.2 L MCH (test code = 785-6) 28.1 pg 25.9-32.8 MCV (test code = 787-2) 88.3 fL 80.6-95.5 MCHC (test code = 786-4) 31.8 g/dL 31.6-35.1 PLT (test code = 777-3) See_Comment [Au tomated message] The system [employer] generated this result transmit derian reference range : 166 - 358 10*3/?L. The reference range was not used to interpret this result as normal/abnormal . MPV (test code = 9.5 fL 9.5-12.9 36843-6) RDW-CV (test code = 13.1 % 12.0-15.5 788-0) RDW-SD (test code = 42.2 fL 39.0-49.9 93059-0) NRBC x10^3 (test code = <0.01 See_Comment [Au tomated message] 5414074581) The system [employer] generated this result transmit derian reference range : 10*3/?L. The reference range was not used to interpret this result as normal/abnormal . NRBC/100 WBC (test code See_Comment [Au tomated message] = 1403209120) The system [employer] generated this result transmit derian reference range : 0.0 - 10.0 /100 WBC s. The reference r jordyn was not used to interpret this result as normal/abnormal . IPF % (test code = 0880299393) Lab Interpretation (test Abnormal code = 79284-1) [facility] WITHOUT [id number] 14:02:03 Test Item Value Reference Range Interpretation Comments WBC (test code = 6690-2) See_Comment L [A utomated message] The system [employer] generated this result transmit derian reference range : 4.30 - 11.10 10*3/?L. The reference range was not used to interpret this result as normal/abnormal . RBC (test code = 789-8) See_Comment L [Au tomated message] The system [employer] generated this result transmit derian reference range : 3.93 - 5.25 10* 6/?L. The reference r jordyn was not used to interpret this result as normal/abnormal . HGB (test code = 718-7) 7.7 g/dL 11.6-15.0 L HCT (test code = 4544-3) 24.2 % 35.7-45.2 L MCH (test code = 785-6) 28.1 pg 25.9-32.8 MCV (test code = 787-2) 88.3 fL 80.6-95.5 MCHC (test code = 786-4) 31.8 g/dL 31.6-35.1 PLT (test code = 777-3) See_Comment [Au tomated message] The system [employer] generated this result transmit derian reference range : 166 - 358 10*3/?L. The reference range was not used to interpret this result as normal/abnormal . MPV (test code = 9.5 fL 9.5-12.9 65634-7) RDW-CV (test code = 13.1 % 12.0-15.5 788-0) RDW-SD (test code = 42.2 fL 39.0-49.9 41014-7) NRBC x10^3 (test code = <0.01 See_Comment [Au tomated message] 4009465159) The system [employer] generated this result transmit derian reference range : 10*3/?L. The reference range was not used to interpret this result as normal/abnormal . NRBC/100 WBC (test code See_Comment [Au tomated message] = 7913863204) The system [facility] generated this result transmit derian reference range : 0.0 - 10.0 /100 WBC s. The reference r jordyn was not used to interpret this result as normal/abnormal . IPF % (test code = 5450085287) Lab Interpretation (test Abnormal code = 90751-1) [facility]2022-03-13 13:42:20 Test Item Value Reference Range Interpretation Comments MAGNESIUM (test code = 7328812103) 1.9 mg/dL 1.7-2.4 Lab Interpretation (test code = Normal 85056-0) [facility]2022-03-13 13:42:20 Test Item Value Reference Range Interpretation Comments MAGNESIUM (test code = 4248294412) 1.9 mg/dL 1.7-2.4 Lab Interpretation (test code = Normal 58387-7) [facility] Test Item Value Reference Range Interpretation Comments MAGNESIUM (test code = 1986672752) 1.9 mg/dL 1.7-2.4 Lab Interpretation (test code = Normal 98137-8) [facility] GLUCOSE (AUTOMATED)2021-11-07 13:13:40 Test Item Value Reference Range Interpretation Comments POCT GLU (test code = 7290080666) 124 mg/dL 70-110 H Lab Interpretation (test code = Abnormal 99157-6) [facility] GLUCOSE (AUTOMATED)2021-11-07 13:13:40 Test Item Value Reference Range Interpretation Comments POCT GLU (test code = 3515287835) 124 mg/dL 70-110 H Lab Interpretation (test code = Abnormal 09195-9) [facility] GLUCOSE (AUTOMATED)2021-11-07 13:13:40 Test Item Value Reference Range Interpretation Comments POCT GLU (test code = 2481583217) 124 mg/dL 70-110 H Lab Interpretation (test code = Abnormal 97975-5) [facility] METABOLIC PANEL (NA, K, CL, CO2, GLUCOSE, BUN, CREATININE, CA)2021-11-07 09:27:06 Test Item Value Reference Range Interpretation Comments NA (test code = 136 mmol/L 135-145 3259854301) K (test code = 3.7 mmol/L 3.5-5.0 2224839958) CL (test code = 111 mmol/L 98-108 H 2588609768) CO2 TOTAL (test code = 26 mmol/L 23-31 0455244018) AGAP (test code = <1 2-16 L 4121531680) BUN (test code = 11 mg/dL 7-23 8066773169) GLUCOSE (test code = 108 mg/dL 70-110 9502577070) CREATININE (test code = 0.87 mg/dL 0.50-1.04 8342818707) CALCIUM (test code = 8.4 mg/dL 8.6-10.6 L 5568533992) eGFR (test code = mL/min/1.73m2 3373103731) ALYSSA (test code = ALYSSA) Association of Glomerular Filtration Rate (GFR) and Staging of Kidney Disease* + --+ --+ ------+| GFR (mL/min/1.73 m2) ?| With Kidney Damage ?| ?Without Kidney Damage+ --------+ --------+ +| ?>90 ?| ?Stage one ?| ? Normal ?+ ---+ ---+ -------+| ?60-89 ?| ?Stage two ?| ? Decreased GFR ? + --+ --+ ------+| ?30-59 ?| ?Stage three ?| ? Stage three ? + --+ --+ ------+| ?15-29 ?| ?Stage four ? | ? Stage four ?+ ---+ ---+ -------+| ?<15 (or dialysis) ? ?| ?Stage five ? | ? Stage five ?+ ---+ ---+ -------+ *Each stage assumes the associated GFR level has been in effect for at least three months. ?Stages 1 to 5, with or without kidney disease, indicate chronic kidney disease. Notes: Determination of stages one and two (with eGFR >59mL/min/1.73 m2) requires estimation of kidney damage for at least three months as defined by structural or functional abnormalities of the kidney, manifested by either:Pathological abnormalities or Markers of kidney damage (including abnormalities in the composition of the blood or urine or abnormalities in imaging tests). Lab Interpretation Abnormal (test code = 64951-3) [facility] METABOLIC PANEL (NA, K, CL, CO2, GLUCOSE, BUN, CREATININE, CA)2021-11-07 09:27:06 Test Item Value Reference Range Interpretation Comments NA (test code = 136 mmol/L 135-145 0627445144) K (test code = 3.7 mmol/L 3.5-5.0 9094907705) CL (test code = 111 mmol/L 98-108 H 6672590948) CO2 TOTAL (test code = 26 mmol/L 23-31 9101807670) AGAP (test code = <1 2-16 L 5166375354) BUN (test code = 11 mg/dL 7-23 8575776894) GLUCOSE (test code = 108 mg/dL 70-110 0638956615) CREATININE (test code = 0.87 mg/dL 0.50-1.04 8490795720) CALCIUM (test code = 8.4 mg/dL 8.6-10.6 L 1368621822) eGFR (test code = mL/min/1.73m2 1321338751) ALYSSA (test code = ALYSSA) Association of Glomerular Filtration Rate (GFR) and Staging of Kidney Disease* + --+ --+ ------+| GFR (mL/min/1.73 m2) ?| With Kidney Damage ?| ?Without Kidney Damage+ --------+ --------+ +| ?>90 ?| ?Stage one ?| ? Normal ?+ ---+ ---+ -------+| ?60-89 ?| ?Stage two ?| ? Decreased GFR ? + --+ --+ ------+| ?30-59 ?| ?Stage three ?| ? Stage three ? + --+ --+ ------+| ?15-29 ?| ?Stage four ? | ? Stage four ?+ ---+ ---+ -------+| ?<15 (or dialysis) ? ?| ?Stage five ? | ? Stage five ?+ ---+ ---+ -------+ *Each stage assumes the associated GFR level has been in effect for at least three months. ?Stages 1 to 5, with or without kidney disease, indicate chronic kidney disease. Notes: Determination of stages one and two (with eGFR >59mL/min/1.73 m2) requires estimation of kidney damage for at least three months as defined by structural or functional abnormalities of the kidney, manifested by either:Pathological abnormalities or Markers of kidney damage (including abnormalities in the composition of the blood or urine or abnormalities in imaging tests). Lab Interpretation Abnormal (test code = 42817-6) [facility] METABOLIC PANEL (NA, K, CL, CO2, GLUCOSE, BUN, CREATININE, CA)2021-11-07 09:27:06 Test Item Value Reference Range Interpretation Comments NA (test code = 136 mmol/L 135-145 9666520487) K (test code = 3.7 mmol/L 3.5-5.0 2085033461) CL (test code = 111 mmol/L 98-108 H 6483096596) CO2 TOTAL (test code = 26 mmol/L 23-31 4045351854) AGAP (test code = <1 2-16 L 9311516707) BUN (test code = 11 mg/dL 7-23 3642243442) GLUCOSE (test code = 108 mg/dL 70-110 4186012136) CREATININE (test code = 0.87 mg/dL 0.50-1.04 9092483067) CALCIUM (test code = 8.4 mg/dL 8.6-10.6 L 6917578618) eGFR (test code = mL/min/1.73m2 7052141841) ALYSSA (test code = ALYSSA) Association of Glomerular Filtration Rate (GFR) and Staging of Kidney Disease* + --+ --+ ------+| GFR (mL/min/1.73 m2) ?| With Kidney Damage ?| ?Without Kidney Damage+ --------+ --------+ +| ?>90 ?| ?Stage one ?| ? Normal ?+ ---+ ---+ -------+| ?60-89 ?| ?Stage two ?| ? Decreased GFR ? + --+ --+ ------+| ?30-59 ?| ?Stage three ?| ? Stage three ? + --+ --+ ------+| ?15-29 ?| ?Stage four ? | ? Stage four ?+ ---+ ---+ -------+| ?<15 (or dialysis) ? ?| ?Stage five ? | ? Stage five ?+ ---+ ---+ -------+ *Each stage assumes the associated GFR level has been in effect for at least three months. ?Stages 1 to 5, with or without kidney disease, indicate chronic kidney disease. Notes: Determination of stages one and two (with eGFR >59mL/min/1.73 m2) requires estimation of kidney damage for at least three months as defined by structural or functional abnormalities of the kidney, manifested by either:Pathological abnormalities or Markers of kidney damage (including abnormalities in the composition of the blood or urine or abnormalities in imaging tests). Lab Interpretation Abnormal (test code = 90358-4) [facility] [facility] WITHOUT [id number] 08:59:15 Test Item Value Reference Range Interpretation Comments WBC (test code = 6690-2) See_Comment [A utomated message] The system [employer] generated this result transmit derian reference range : 4.30 - 11.10 10*3/?L. The reference range was not used to interpret this result as normal/abnormal . RBC (test code = 789-8) See_Comment L [Au tomated message] The system [employer] generated this result transmit derian reference range : 3.93 - 5.25 10* 6/?L. The reference r jordyn was not used to interpret this result as normal/abnormal . HGB (test code = 718-7) 7.4 g/dL 11.6-15.0 L HCT (test code = 4544-3) 23.8 % 35.7-45.2 L MCH (test code = 785-6) 28.0 pg 25.9-32.8 MCV (test code = 787-2) 90.2 fL 80.6-95.5 MCHC (test code = 786-4) 31.1 g/dL 31.6-35.1 L PLT (test code = 777-3) See_Comment [Au tomated message] The system [employer] generated this result transmit derian reference range : 166 - 358 10*3/?L. The reference range was not used to interpret this result as normal/abnormal . MPV (test code = 10.2 fL 9.5-12.9 22329-9) RDW-CV (test code = 12.9 % 12.0-15.5 788-0) RDW-SD (test code = 42.4 fL 39.0-49.9 85086-3) NRBC x10^3 (test code = <0.01 See_Comment [Au tomated message] [id number]) The system [employer] generated this result transmit derian reference range : 10*3/?L. The reference range was not used to interpret this result as normal/abnormal . NRBC/100 WBC (test code See_Comment [Au tomated message] = [id number]) The system [facility] generated this result transmit derian reference range : 0.0 - 10.0 /100 WBC s. The reference r jordyn was not used to interpret this result as normal/abnormal . IPF % (test code = 3320455953) Lab Interpretation (test Abnormal code = 47557-4) [facility] WITHOUT [id number] 08:59:15 Test Item Value Reference Range Interpretation Comments WBC (test code = 6690-2) See_Comment [A utomated message] The system [employer] generated this result transmit derian reference range : 4.30 - 11.10 10*3/?L. The reference range was not used to interpret this result as normal/abnormal . RBC (test code = 789-8) See_Comment L [Au tomated message] The system [employer] generated this result transmit derian reference range : 3.93 - 5.25 10* 6/?L. The reference r jordyn was not used to interpret this result as normal/abnormal . HGB (test code = 718-7) 7.4 g/dL 11.6-15.0 L HCT (test code = 4544-3) 23.8 % 35.7-45.2 L MCH (test code = 785-6) 28.0 pg 25.9-32.8 MCV (test code = 787-2) 90.2 fL 80.6-95.5 MCHC (test code = 786-4) 31.1 g/dL 31.6-35.1 L PLT (test code = 777-3) See_Comment [Au tomated message] The system [employer] generated this result transmit derian reference range : 166 - 358 10*3/?L. The reference range was not used to interpret this result as normal/abnormal . MPV (test code = 10.2 fL 9.5-12.9 71938-4) RDW-CV (test code = 12.9 % 12.0-15.5 788-0) RDW-SD (test code = 42.4 fL 39.0-49.9 94462-9) NRBC x10^3 (test code = <0.01 See_Comment [Au tomated message] [id number]) The system [employer] generated this result transmit derian reference range : 10*3/?L. The reference range was not used to interpret this result as normal/abnormal . NRBC/100 WBC (test code See_Comment [Au tomated message] = 8291824690) The system [facility] generated this result transmit derian reference range : 0.0 - 10.0 /100 WBC s. The reference r jordyn was not used to interpret this result as normal/abnormal . IPF % (test code = 6191240859) Lab Interpretation (test Abnormal code = 03289-5) [facility] WITHOUT [id number] 08:59:15 Test Item Value Reference Range Interpretation Comments WBC (test code = 6690-2) See_Comment [A utomated message] The system [employer] generated this result transmit derian reference range : 4.30 - 11.10 10*3/?L. The reference range was not used to interpret this result as normal/abnormal . RBC (test code = 789-8) See_Comment L [Au tomated message] The system [employer] generated this result transmit derian reference range : 3.93 - 5.25 10* 6/?L. The reference r jordyn was not used to interpret this result as normal/abnormal . HGB (test code = 718-7) 7.4 g/dL 11.6-15.0 L HCT (test code = 4544-3) 23.8 % 35.7-45.2 L MCH (test code = 785-6) 28.0 pg 25.9-32.8 MCV (test code = 787-2) 90.2 fL 80.6-95.5 MCHC (test code = 786-4) 31.1 g/dL 31.6-35.1 L PLT (test code = 777-3) See_Comment [Au tomated message] The system [employer] generated this result transmit derian reference range : 166 - 358 10*3/?L. The reference range was not used to interpret this result as normal/abnormal . MPV (test code = 10.2 fL 9.5-12.9 37267-9) RDW-CV (test code = 12.9 % 12.0-15.5 788-0) RDW-SD (test code = 42.4 fL 39.0-49.9 44581-1) NRBC x10^3 (test code = <0.01 See_Comment [Au tomated message] [id number]) The system [employer] generated this result transmit derian reference range : 10*3/?L. The reference range was not used to interpret this result as normal/abnormal . NRBC/100 WBC (test code See_Comment [Au tomated message] = 0896342672) The system [employer] generated this result transmit derian reference range : 0.0 - 10.0 /100 WBC s. The reference r jordyn was not used to interpret this result as normal/abnormal . IPF % (test code = 5863381311) Lab Interpretation (test Abnormal code = 55084-6) [facility] 1 Units 2021-11-07 02:58:01 Test Item Value Reference Range Interpretation Comments Cross Match Result Compatible (test code = 4409) ISBT Blood Type Code (test code = 319400) Unit Blood Type (test O Neg code = 4410) Unit Number (test [id number] code = 4411) Blood Expiration Date & Time (test code = 296643) Status Information Issued (test code = 4412) Product Red Blood Cells Identification (test code = 4413) Product Code (test [id number] Performed at [facility] code = 4414) Laboratory Services - [facility] Blood [address] s [address]Iaja Free: [phone] A No. [id number] [facility]), 1 Units 2021-11-07 02:58:01 Test Item Value Reference Range Interpretation Comments Cross Match Result Compatible (test code = 4409) ISBT Blood Type Code (test code = 771368) Unit Blood Type (test O Neg code = 4410) Unit Number (test [id number] code = 4411) Blood Expiration Date & Time (test code = 592018) Status Information Issued (test code = 4412) Product Red Blood Cells Identification (test code = 4413) Product Code (test [id number] Performed at [facility] code = 4414) Laboratory Services - [facility] Blood [address] s [address]Dbzf Free: [phone] A No. [id number] [facility] RBC (in units), 1 Units 2021-11-07 02:58:01 Test Item Value Reference Range Interpretation Comments Cross Match Result Compatible (test code = 4409) ISBT Blood Type Code (test code = 928469) Unit Blood Type (test O Neg code = 4410) Unit Number (test [id number] code = 4411) Blood Expiration Date & Time (test code = 616201) Status Information Issued (test code = 4412) Product Red Blood Cells Identification (test code = 4413) Product Code (test [id number] Performed at [facility] code = 4414) Laboratory [facility] Blood [address] [address]Rwsi Free: [phone] A No. [id number] [facility] and Screen - ONCE [id number] 01:57:58 Test Item Value Reference Range Interpretation Comments ABO & RH (test code O POSITIVE Performe d at [facility] = 20) Laboratory [facility] Blood [address] [address]Qipv Free: [phone] A No. [id number] IAT (test code = Negative Performed a t [facility]AMB 1185) Laboratory [facility] Blood [facility] [address] [place] [address] s [address]Pksp Free: [phone] A No. [id number] [facility] and Screen - ONCE [id number] 01:57:58 Test Item Value Reference Range Interpretation Comments ABO & RH (test code O POSITIVE Performe d at [facility] = 20) Laboratory [facility] Blood [facility] [place] [address] s [address]Oeuw Free: [phone] A No. [id number] IAT (test code = Negative Performed a t MAMB 1185) Laboratory [facility] Blood [facility] [place] [address] s [address]Ebux Free: [phone] A No. [id number] [facility] and Screen - ONCE [id number] 01:57:58 Test Item Value Reference Range Interpretation Comments ABO & RH (test code O POSITIVE Performe d at [facility] = 20) Laboratory [facility] Blood [facility]3 [address] [facility] [address]Lhos Free: [phone] A No. [id number] IAT (test code = Negative Performed a t [facility] 1185) Laboratory Serv [facility] Blood Bank3 [facility] s [address]Jrse Free: [phone] A No. [id number] [facility] GLUCOSE (AUTOMATED)2021-11-07 01:44:23 Test Item Value Reference Range Interpretation Comments POCT GLU (test code = 7316413057) 135 mg/dL 70-110 H Lab Interpretation (test code = Abnormal 15367-7) [facility] GLUCOSE (AUTOMATED)2021-11-07 01:44:23 Test Item Value Reference Range Interpretation Comments POCT GLU (test code = 5412976907) 135 mg/dL 70-110 H Lab Interpretation (test code = Abnormal 20109-8) [facility] GLUCOSE (AUTOMATED)2021-11-07 01:44:23 Test Item Value Reference Range Interpretation Comments POCT GLU (test code = 2362793467) 135 mg/dL 70-110 H Lab Interpretation (test code = Abnormal 77340-8) [facility] WITHOUT [id number] 01:18:14 Test Item Value Reference Range Interpretation Comments WBC (test code = 6690-2) See_Comment [A utomated message] The system [employer] generated this result transmit derian reference range : 4.30 - 11.10 10*3/?L. The reference range was not used to interpret this result as normal/abnormal . RBC (test code = 789-8) See_Comment L [Au tomated message] The system [employer] generated this result transmit derian reference range : 3.93 - 5.25 10* 6/?L. The reference r jordyn was not used to interpret this result as normal/abnormal . HGB (test code = 718-7) 6.7 g/dL 11.6-15.0 L HCT (test code = 4544-3) 21.8 % 35.7-45.2 L MCH (test code = 785-6) 27.9 pg 25.9-32.8 MCV (test code = 787-2) 90.8 fL 80.6-95.5 MCHC (test code = 786-4) 30.7 g/dL 31.6-35.1 L PLT (test code = 777-3) See_Comment [Au tomated message] The system [employer] generated this result transmit derian reference range : 166 - 358 10*3/?L. The reference range was not used to interpret this result as normal/abnormal . MPV (test code = 9.8 fL 9.5-12.9 25289-6) RDW-CV (test code = 13.0 % 12.0-15.5 788-0) RDW-SD (test code = 43.3 fL 39.0-49.9 67984-8) NRBC x10^3 (test code = <0.01 See_Comment [Au tomated message] [id number]) The system [employer] generated this result transmit derian reference range : 10*3/?L. The reference range was not used to interpret this result as normal/abnormal . NRBC/100 WBC (test code See_Comment [Au tomated message] = 9561173649) The system [facility] generated this result transmit derian reference range : 0.0 - 10.0 /100 WBC s. The reference r jordyn was not used to interpret this result as normal/abnormal . IPF % (test code = 0484141935) Lab Interpretation (test Abnormal code = 27041-8) [facility] WITHOUT [id number] 01:18:14 Test Item Value Reference Range Interpretation Comments WBC (test code = 6690-2) See_Comment [A utomated message] The system [employer] generated this result transmit derian reference range : 4.30 - 11.10 10*3/?L. The reference range was not used to interpret this result as normal/abnormal . RBC (test code = 789-8) See_Comment L [Au tomated message] The system [facility] generated this result transmit derian reference range : 3.93 - 5.25 10* 6/?L. The reference r jordyn was not used to interpret this result as normal/abnormal . HGB (test code = 718-7) 6.7 g/dL 11.6-15.0 L HCT (test code = 4544-3) 21.8 % 35.7-45.2 L MCH (test code = 785-6) 27.9 pg 25.9-32.8 MCV (test code = 787-2) 90.8 fL 80.6-95.5 MCHC (test code = 786-4) 30.7 g/dL 31.6-35.1 L PLT (test code = 777-3) See_Comment [Au tomated message] The system [employer] generated this result transmit derian reference range : 166 - 358 10*3/?L. The reference range was not used to interpret this result as normal/abnormal . MPV (test code = 9.8 fL 9.5-12.9 54836-8) RDW-CV (test code = 13.0 % 12.0-15.5 788-0) RDW-SD (test code = 43.3 fL 39.0-49.9 54169-0) NRBC x10^3 (test code = <0.01 See_Comment [Au tomated message] [id number]) The system [employer] generated this result transmit derian reference range : 10*3/?L. The reference range was not used to interpret this result as normal/abnormal . NRBC/100 WBC (test code See_Comment [Au tomated message] = 6415027456) The system [employer] generated this result transmit derian reference range : 0.0 - 10.0 /100 WBC s. The reference r jordyn was not used to interpret this result as normal/abnormal . IPF % (test code = 1918921007) Lab Interpretation (test Abnormal code = 18020-0) [facility] WITHOUT [id number] 01:18:14 Test Item Value Reference Range Interpretation Comments WBC (test code = 6690-2) See_Comment [A utomated message] The system [employer] generated this result transmit derian reference range : 4.30 - 11.10 10*3/?L. The reference range was not used to interpret this result as normal/abnormal . RBC (test code = 789-8) See_Comment L [Au tomated message] The system [employer] generated this result transmit derian reference range : 3.93 - 5.25 10* 6/?L. The reference r jordyn was not used to interpret this result as normal/abnormal . HGB (test code = 718-7) 6.7 g/dL 11.6-15.0 L HCT (test code = 4544-3) 21.8 % 35.7-45.2 L MCH (test code = 785-6) 27.9 pg 25.9-32.8 MCV (test code = 787-2) 90.8 fL 80.6-95.5 MCHC (test code = 786-4) 30.7 g/dL 31.6-35.1 L PLT (test code = 777-3) See_Comment [Au tomated message] The system [employer] generated this result transmit derian reference range : 166 - 358 10*3/?L. The reference range was not used to interpret this result as normal/abnormal . MPV (test code = 9.8 fL 9.5-12.9 59493-2) RDW-CV (test code = 13.0 % 12.0-15.5 788-0) RDW-SD (test code = 43.3 fL 39.0-49.9 52603-9) NRBC x10^3 (test code = <0.01 See_Comment [Au tomated message] 5812550146) The system [employer] generated this result transmit derian reference range : 10*3/?L. The reference range was not used to interpret this result as normal/abnormal . NRBC/100 WBC (test code See_Comment [Au tomated message] = 4651844463) The system [employer] generated this result transmit derian reference range : 0.0 - 10.0 /100 WBC s. The reference r jordyn was not used to interpret this result as normal/abnormal . IPF % (test code = 7319168089) Lab Interpretation (test Abnormal code = 67741-9) [facility] GLUCOSE (AUTOMATED)2021-11-06 23:16:35 Test Item Value Reference Range Interpretation Comments POCT GLU (test code = 6180996989) 121 mg/dL 70-110 H Lab Interpretation (test code = Abnormal 90175-1) [facility] GLUCOSE (AUTOMATED)2021-11-06 23:16:35 Test Item Value Reference Range Interpretation Comments POCT GLU (test code = 7395238372) 121 mg/dL 70-110 H Lab Interpretation (test code = Abnormal 73518-3) [facility] 23:16:35 Test Item Value Reference Range Interpretation Comments POCT GLU (test code = 1196508546) 121 mg/dL 70-110 H Lab Interpretation (test code = Abnormal 88661-6) [facility] [id number] 21:47:02 Test Item Value Reference Range Interpretation Comments FERRITIN (test code = 15.2 ng/mL 11.0-264.0 6247823597) ALYSSA (test code = ALYSSA) Biotin has been reported to cause a negative bias, interpret results relative to patient's use of biotin. Lab Interpretation (test Normal code = 45788-4) [facility] [id number] 21:47:02 Test Item Value Reference Range Interpretation Comments FERRITIN (test code = 15.2 ng/mL 11.0-264.0 2437976975) ALYSSA (test code = ALYSSA) Biotin has been reported to cause a negative bias, interpret results relative to patient's use of biotin. Lab Interpretation (test Normal code = 47478-0) [facility] [id number] 21:47:02 Test Item Value Reference Range Interpretation Comments FERRITIN (test code = 15.2 ng/mL 11.0-264.0 2406894825) ALYSSA (test code = ALYSSA) Biotin has been reported to cause a negative bias, interpret results relative to patient's use of biotin. Lab Interpretation (test Normal code = 04845-5) [facility] [id number] 21:47:02 Test Item Value Reference Range Interpretation Comments FERRITIN (test code = 15.2 ng/mL 11.0-264.0 5299329827) ALYSSA (test code = ALYSSA) Biotin has been reported to cause a negative bias, interpret results relative to patient's use of biotin. Lab Interpretation (test Normal code = 71935-8) [facility] Center[facility]ON [id number] 21:18:59 Test Item Value Reference Range Interpretation Comments IRON (test code = 9687399698) 46 ug/dL 50-160 L TIBC (test code = 6379677462) 343 ug/dL 250-410 % FE SAT (test code = 5890740464) 13 % 20-50 L Lab Interpretation (test code = Abnormal 23204-0) [facility] [id number] 21:18:59 Test Item Value Reference Range Interpretation Comments IRON (test code = 4070312693) 46 ug/dL 50-160 L TIBC (test code = 6508803605) 343 ug/dL 250-410 % FE SAT (test code = 4981298574) 13 % 20-50 L Lab Interpretation (test code = Abnormal 81595-0) [facility] [id number] 21:18:59 Test Item Value Reference Range Interpretation Comments IRON (test code = 3936593298) 46 ug/dL 50-160 L TIBC (test code = 0693624641) 343 ug/dL 250-410 % FE SAT (test code = 6094256720) 13 % 20-50 L Lab Interpretation (test code = Abnormal 10914-1) [facility] [id number] 21:18:59 Test Item Value Reference Range Interpretation Comments IRON (test code = 1305939523) 46 ug/dL 50-160 L TIBC (test code = 0471373624) 343 ug/dL 250-410 % FE SAT (test code = 9641296597) 13 % 20-50 L Lab Interpretation (test code = Abnormal 90972-1) [facility] WITHOUT [id number] 20:11:53 Test Item Value Reference Range Interpretation Comments WBC (test code = 6690-2) See_Comment [A utomated message] The system [employer] generated this result transmit derian reference range : 4.30 - 11.10 10*3/?L. The reference range was not used to interpret this result as normal/abnormal . RBC (test code = 789-8) See_Comment L [Au tomated message] The system [employer] generated this result transmit derian reference range : 3.93 - 5.25 10* 6/?L. The reference r jordyn was not used to interpret this result as normal/abnormal . HGB (test code = 718-7) 7.4 g/dL 11.6-15.0 L HCT (test code = 4544-3) 23.8 % 35.7-45.2 L MCH (test code = 785-6) 27.7 pg 25.9-32.8 MCV (test code = 787-2) 89.1 fL 80.6-95.5 MCHC (test code = 786-4) 31.1 g/dL 31.6-35.1 L PLT (test code = 777-3) See_Comment [Au tomated message] The system [employer] generated this result transmit derian reference range : 166 - 358 10*3/?L. The reference range was not used to interpret this result as normal/abnormal . MPV (test code = 10.1 fL 9.5-12.9 38795-9) RDW-CV (test code = 12.8 % 12.0-15.5 788-0) RDW-SD (test code = 41.9 fL 39.0-49.9 72368-0) NRBC x10^3 (test code = <0.01 See_Comment [Au tomated message] [id number]) The system [employer] generated this result transmit derian reference range : 10*3/?L. The reference range was not used to interpret this result as normal/abnormal . NRBC/100 WBC (test code See_Comment [Au tomated message] = 9051523201) The system [facility] generated this result transmit derian reference range : 0.0 - 10.0 /100 WBC s. The reference r jordyn was not used to interpret this result as normal/abnormal . IPF % (test code = 0150914242) Lab Interpretation (test Abnormal code = 20158-1) [facility] WITHOUT [id number] 20:11:53 Test Item Value Reference Range Interpretation Comments WBC (test code = 6690-2) See_Comment [A utomated message] The system [facility] generated this result transmit derian reference range : 4.30 - 11.10 10*3/?L. The reference range was not used to interpret this result as normal/abnormal . RBC (test code = 789-8) See_Comment L [Au tomated message] The system [facility] generated this result transmit derian reference range : 3.93 - 5.25 10* 6/?L. The reference r jordyn was not used to interpret this result as normal/abnormal . HGB (test code = 718-7) 7.4 g/dL 11.6-15.0 L HCT (test code = 4544-3) 23.8 % 35.7-45.2 L MCH (test code = 785-6) 27.7 pg 25.9-32.8 MCV (test code = 787-2) 89.1 fL 80.6-95.5 MCHC (test code = 786-4) 31.1 g/dL 31.6-35.1 L PLT (test code = 777-3) See_Comment [Au tomated message] The system [employer] generated this result transmit derian reference range : 166 - 358 10*3/?L. The reference range was not used to interpret this result as normal/abnormal . MPV (test code = 10.1 fL 9.5-12.9 70143-6) RDW-CV (test code = 12.8 % 12.0-15.5 788-0) RDW-SD (test code = 41.9 fL 39.0-49.9 63949-6) NRBC x10^3 (test code = <0.01 See_Comment [Au tomated message] [id number]) The system [employer] generated this result transmit derian reference range : 10*3/?L. The reference range was not used to interpret this result as normal/abnormal . NRBC/100 WBC (test code See_Comment [Au tomated message] = 0298908729) The system [facility] generated this result transmit derian reference range : 0.0 - 10.0 /100 WBC s. The reference r jordyn was not used to interpret this result as normal/abnormal . IPF % (test code = 9860195158) Lab Interpretation (test Abnormal code = 98584-3) [facility] WITHOUT [id number] 20:11:53 Test Item Value Reference Range Interpretation Comments WBC (test code = 6690-2) See_Comment [A utomated message] The system [employer] generated this result transmit derian reference range : 4.30 - 11.10 10*3/?L. The reference range was not used to interpret this result as normal/abnormal . RBC (test code = 789-8) See_Comment L [Au tomated message] The system [employer] generated this result transmit derian reference range : 3.93 - 5.25 10* 6/?L. The reference r jordyn was not used to interpret this result as normal/abnormal . HGB (test code = 718-7) 7.4 g/dL 11.6-15.0 L HCT (test code = 4544-3) 23.8 % 35.7-45.2 L MCH (test code = 785-6) 27.7 pg 25.9-32.8 MCV (test code = 787-2) 89.1 fL 80.6-95.5 MCHC (test code = 786-4) 31.1 g/dL 31.6-35.1 L PLT (test code = 777-3) See_Comment [Au tomated message] The system [employer] generated this result transmit derian reference range : 166 - 358 10*3/?L. The reference range was not used to interpret this result as normal/abnormal . MPV (test code = 10.1 fL 9.5-12.9 01594-0) RDW-CV (test code = 12.8 % 12.0-15.5 788-0) RDW-SD (test code = 41.9 fL 39.0-49.9 69538-2) NRBC x10^3 (test code = <0.01 See_Comment [Au tomated message] [id number]) The system [employer] generated this result transmit derian reference range : 10*3/?L. The reference range was not used to interpret this result as normal/abnormal . NRBC/100 WBC (test code See_Comment [Au tomated message] = 8630823785) The system [facility] generated this result transmit derian reference range : 0.0 - 10.0 /100 WBC s. The reference r jordyn was not used to interpret this result as normal/abnormal . IPF % (test code = 4609879652) Lab Interpretation (test Abnormal code = 91972-0) [facility] GLUCOSE (AUTOMATED)2021-11-06 18:10:08 Test Item Value Reference Range Interpretation Comments POCT GLU (test code = 5738089697) 118 mg/dL 70-110 H Lab Interpretation (test code = Abnormal 78583-7) [facility] GLUCOSE (AUTOMATED)2021-11-06 18:10:08 Test Item Value Reference Range Interpretation Comments POCT GLU (test code = 5290796084) 118 mg/dL 70-110 H Lab Interpretation (test code = Abnormal 52912-1) [facility] GLUCOSE (AUTOMATED)2021-11-06 18:10:08 Test Item Value Reference Range Interpretation Comments POCT GLU (test code = 8359589386) 118 mg/dL 70-110 H Lab Interpretation (test code = Abnormal 04744-4) [facility] GLUCOSE (AUTOMATED)2021-11-06 14:37:36 Test Item Value Reference Range Interpretation Comments POCT GLU (test code = 6607809474) 129 mg/dL 70-110 H Lab Interpretation (test code = Abnormal 32497-6) [facility] GLUCOSE (AUTOMATED)2021-11-06 14:37:36 Test Item Value Reference Range Interpretation Comments POCT GLU (test code = 6025447297) 129 mg/dL 70-110 H Lab Interpretation (test code = Abnormal 22202-9) [facility] GLUCOSE (AUTOMATED)2021-11-06 14:37:36 Test Item Value Reference Range Interpretation Comments POCT GLU (test code = 8162950154) 129 mg/dL 70-110 H Lab Interpretation (test code = Abnormal 53373-7) [facility] 13:48:37 Test Item Value Reference Range Interpretation Comments HGB A1C (test code = 5.7 % 4.0-5.7 4548-4) ALYSSA (test code = ALYSSA) Reference RangesNormal: <5.7%Prediabetes: 5.7 - 6.4%Diabetes: > 6.5% Lab Interpretation (test Normal code = 55416-7) [facility] 13:48:37 Test Item Value Reference Range Interpretation Comments HGB A1C (test code = 5.7 % 4.0-5.7 4548-4) ALYSSA (test code = ALYSSA) Reference RangesNormal: <5.7%Prediabetes: 5.7 - 6.4%Diabetes: > 6.5% Lab Interpretation (test Normal code = 41923-4) [facility]21-[facility]-06 13:48:37 Test Item Value Reference Range Interpretation Comments HGB A1C (test code = 5.7 % 4.0-5.7 4548-4) ALYSSA (test code = ALYSSA) Reference RangesNormal: <5.7%Prediabetes: 5.7 - 6.4%Diabetes: > 6.5% Lab Interpretation (test Normal code = 48549-1) [facility]21[facility]-06 13:48:37 Test Item Value Reference Range Interpretation Comments HGB A1C (test code = 5.7 % 4.0-5.7 4548-4) ALYSSA (test code = ALYSSA) Reference RangesNormal: <5.7%Prediabetes: 5.7 - 6.4%Diabetes: > 6.5% Lab Interpretation (test Normal code = 34947-7) [facility] [id number] 13:46:07 Test Item Value Reference Range Interpretation Comments WBC (test code = 6690-2) See_Comment [A utomated message] The system [employer] generated this result transmit derian reference range : 4.30 - 11.10 10*3/?L. The reference range was not used to interpret this result as normal/abnormal . RBC (test code = 789-8) See_Comment L [Au tomated message] The system [employer] generated this result transmit derian reference range : 3.93 - 5.25 10* 6/?L. The reference r jordyn was not used to interpret this result as normal/abnormal . HGB (test code = 718-7) 8.1 g/dL 11.6-15.0 L HCT (test code = 4544-3) 25.8 % 35.7-45.2 L MCH (test code = 785-6) 28.1 pg 25.9-32.8 MCV (test code = 787-2) 89.6 fL 80.6-95.5 MCHC (test code = 786-4) 31.4 g/dL 31.6-35.1 L PLT (test code = 777-3) See_Comment [Au tomated message] The system [employer] generated this result transmit derian reference range : 166 - 358 10*3/?L. The reference range was not used to interpret this result as normal/abnormal . MPV (test code = 9.8 fL 9.5-12.9 52975-3) RDW-CV (test code = 12.9 % 12.0-15.5 788-0) RDW-SD (test code = 42.3 fL 39.0-49.9 46022-7) NRBC x10^3 (test code = <0.01 See_Comment [Au tomated message] 5095206454) The system [employer] generated this result transmit derian reference range : 10*3/?L. The reference range was not used to interpret this result as normal/abnormal . NRBC/100 WBC (test code See_Comment [Au tomated message] = 1505352592) The system [employer] generated this result transmit derian reference range : 0.0 - 10.0 /100 WBC s. The reference r jorydn was not used to interpret this result as normal/abnormal . IPF % (test code = 8270674735) Lab Interpretation (test Abnormal code = 13404-4) [facility] WITHOUT [id number] 13:46:07 Test Item Value Reference Range Interpretation Comments WBC (test code = 6690-2) See_Comment [A utomated message] The system [employer] generated this result transmit derian reference range : 4.30 - 11.10 10*3/?L. The reference range was not used to interpret this result as normal/abnormal . RBC (test code = 789-8) See_Comment L [Au tomated message] The system [employer] generated this result transmit derian reference range : 3.93 - 5.25 10* 6/?L. The reference r jordyn was not used to interpret this result as normal/abnormal . HGB (test code = 718-7) 8.1 g/dL 11.6-15.0 L HCT (test code = 4544-3) 25.8 % 35.7-45.2 L MCH (test code = 785-6) 28.1 pg 25.9-32.8 MCV (test code = 787-2) 89.6 fL 80.6-95.5 MCHC (test code = 786-4) 31.4 g/dL 31.6-35.1 L PLT (test code = 777-3) See_Comment [Au tomated message] The system [employer] generated this result transmit derian reference range : 166 - 358 10*3/?L. The reference range was not used to interpret this result as normal/abnormal . MPV (test code = 9.8 fL 9.5-12.9 30241-9) RDW-CV (test code = 12.9 % 12.0-15.5 788-0) RDW-SD (test code = 42.3 fL 39.0-49.9 38031-4) NRBC x10^3 (test code = <0.01 See_Comment [Au tomated message] 2264007408) The system [facility] generated this result transmit derian reference range : 10*3/?L. The reference range was not used to interpret this result as normal/abnormal . NRBC/100 WBC (test code See_Comment [Au tomated message] = 1813919925) The system [facility] generated this result transmit derian reference range : 0.0 - 10.0 /100 WBC s. The reference r jordyn was not used to interpret this result as normal/abnormal . IPF % (test code = 2631017638) Lab Interpretation (test Abnormal code = 89989-2) [facility] WITHOUT [id number] 13:46:07 Test Item Value Reference Range Interpretation Comments WBC (test code = 6690-2) See_Comment [A utomated message] The system [facility] generated this result transmit derian reference range : 4.30 - 11.10 10*3/?L. The reference range was not used to interpret this result as normal/abnormal . RBC (test code = 789-8) See_Comment L [Au tomated message] The system [facility] generated this result transmit derian reference range : 3.93 - 5.25 10* 6/?L. The reference r jordyn was not used to interpret this result as normal/abnormal . HGB (test code = 718-7) 8.1 g/dL 11.6-15.0 L HCT (test code = 4544-3) 25.8 % 35.7-45.2 L MCH (test code = 785-6) 28.1 pg 25.9-32.8 MCV (test code = 787-2) 89.6 fL 80.6-95.5 MCHC (test code = 786-4) 31.4 g/dL 31.6-35.1 L PLT (test code = 777-3) See_Comment [Au tomated message] The system [employer] generated this result transmit derian reference range : 166 - 358 10*3/?L. The reference range was not used to interpret this result as normal/abnormal . MPV (test code = 9.8 fL 9.5-12.9 95320-4) RDW-CV (test code = 12.9 % 12.0-15.5 788-0) RDW-SD (test code = 42.3 fL 39.0-49.9 42821-6) NRBC x10^3 (test code = <0.01 See_Comment [Au tomated message] 6474262018) The system [employer] generated this result transmit derian reference range : 10*3/?L. The reference range was not used to interpret this result as normal/abnormal . NRBC/100 WBC (test code See_Comment [Au tomated message] = 3798448755) The system [employer] generated this result transmit derian reference range : 0.0 - 10.0 /100 WBC s. The reference r jordyn was not used to interpret this result as normal/abnormal . IPF % (test code = 0962103517) Lab Interpretation (test Abnormal code = 75081-9) [facility] [id number] 13:23:23 Test Item Value Reference Range Interpretation Comments RETIC Count Automated 1.45 % 0.51-1.90 (test code = 1422841661) RETIC Absolute Count See_Comment [Autom ated message] (test code = 9461122193) The system which generated this result transmitted ref erence range: 0.0230 - 0.0950 10*6/?L. The reference range was not used to int erpret this result as normal/abnormal . IRF % (test code = 14.10 % 2.10-12.60 H 0845110391) RETIC-HE (test code = 29.5 pg 28.1-35.8 4731662559) Lab Interpretation (test Abnormal code = 19172-5) [id number] 13:23:23 Test Item Value Reference Range Interpretation Comments RETIC Count Automated 1.45 % 0.51-1.90 (test code = 1494969755) RETIC Absolute Count See_Comment [Autom ated message] (test code = 3824120845) The system which generated this result transmitted ref erence range: 0.0230 - 0.0950 10*6/?L. The reference range was not used to int erpret this result as normal/abnormal . IRF % (test code = 14.10 % 2.10-12.60 H 7823977639) RETIC-HE (test code = 29.5 pg 28.1-35.8 2505825241) Lab Interpretation (test Abnormal code = 69964-3) [facility] [id number] 13:23:23 Test Item Value Reference Range Interpretation Comments RETIC Count Automated 1.45 % 0.51-1.90 (test code = 0050045979) RETIC Absolute Count See_Comment [Autom ated message] (test code = 9574238803) The system which generated this result transmitted ref erence range: 0.0230 - 0.0950 10*6/?L. The reference range was not used to int erpret this result as normal/abnormal . IRF % (test code = 14.10 % 2.10-12.60 H 8032571990) RETIC-HE (test code = 29.5 pg 28.1-35.8 3047409192) Lab Interpretation (test Abnormal code = 90487-2) [facility] [id number] 13:23:23 Test Item Value Reference Range Interpretation Comments RETIC Count Automated 1.45 % 0.51-1.90 (test code = 5479099779) RETIC Absolute Count See_Comment [Autom ated message] (test code = 0067592567) The system which generated this result transmitted ref erence range: 0.0230 - 0.0950 10*6/?L. The reference range was not used to int erpret this result as normal/abnormal . IRF % (test code = 14.10 % 2.10-12.60 H 8542722255) RETIC-HE (test code = 29.5 pg 28.1-35.8 0340008066) Lab Interpretation (test Abnormal code = 01740-8) [facility] Test Item Value Reference Range Interpretation Comments Fibrinogen (test code = 8175396884) 320 mg/dL 167-453 Lab Interpretation (test code = Normal 06733-8) [facility] 12[facility]59:25 Test Item Value Reference Range Interpretation Comments Fibrinogen (test code = 5849354059) 320 mg/dL 167-453 Lab Interpretation (test code = Normal 46033-5) [facility] 12:59[facility]25 Test Item Value Reference Range Interpretation Comments Fibrinogen (test code = 4166533682) 320 mg/dL 167-453 Lab Interpretation (test code = Normal 10771-4) [facility] 12[facility]59[facility]25 Test Item Value Reference Range Interpretation Comments Fibrinogen (test code = 3097030976) 320 mg/dL 167-453 Lab Interpretation (test code = Normal 95336-0) [facility] / [id number] 08:54:55 Test Item Value Reference Range Interpretation Comments PROTIME PATIENT (test See_Comment [Auto mated message] code = 5964-2) The system [employer] generated this result transmitted ref erence range: 12.0 - 1 4.7 Seconds. The re ference range was not u sed to interpret this result as normal/abnor mal. INR (test code = 6301-6) Nor mal INR <1.1; Warfarin Therap eutic range 2.0 to 3. 0 or 2.5 to 3.5, dep ending upon the indica tions. Lab Interpretation (test Normal code = 92272-3) [facility] / [id number] 08:54:55 Test Item Value Reference Range Interpretation Comments PROTIME PATIENT (test See_Comment [Auto mated message] code = 5964-2) The system [employer] generated this result transmitted ref erence range: 12.0 - 1 4.7 Seconds. The re ference range was not u sed to interpret this result as normal/abnor mal. INR (test code = 6301-6) Nor mal INR <1.1; Warfarin Therap eutic range 2.0 to 3. 0 or 2.5 to 3.5, dep ending upon the indica tions. Lab Interpretation (test Normal code = 41449-4) [facility] / [id number] 08:54:55 Test Item Value Reference Range Interpretation Comments PROTIME PATIENT (test See_Comment [Auto mated message] code = 5964-2) The system [employer] generated this result transmitted ref erence range: 12.0 - 1 4.7 Seconds. The re ference range was not u sed to interpret this result as normal/abnor mal. INR (test code = 6301-6) Nor mal INR <1.1; Warfarin Therap eutic range 2.0 to 3. 0 or 2.5 to 3.5, dep ending upon the indica tions. Lab Interpretation (test Normal code = 14534-1) [facility] / [id number] 08:54:55 Test Item Value Reference Range Interpretation Comments PROTIME PATIENT (test See_Comment [Auto mated message] code = 5964-2) The system [employer] generated this result transmitted ref erence range: 12.0 - 1 4.7 Seconds. The re ference range was not u sed to interpret this result as normal/abnor mal. INR (test code = 6301-6) Nor mal INR <1.1; Warfarin Therap eutic range 2.0 to 3. 0 or 2.5 to 3.5, dep ending upon the indica tions. Lab Interpretation (test Normal code = 81756-3) [facility]OL[facility] ([id number])2021-11-06 08:37:30 Test Item Value Reference Range Interpretation Comments NA (test code = 138 mmol/L 135-145 3308587623) K (test code = 3.7 mmol/L 3.5-5.0 6538510570) CL (test code = 104 mmol/L 98-108 2542431085) CO2 TOTAL (test code = 26 mmol/L 23-31 6853669136) AGAP (test code = 2-16 8167890660) BUN (test code = 16 mg/dL 7-23 8724366402) GLUCOSE (test code = 133 mg/dL 70-110 H 3519323753) CREATININE (test code = 0.99 mg/dL 0.50-1.04 6574620505) TOTAL BILI (test code = 0.4 mg/dL 0.1-1.9 0394070467) CALCIUM (test code = 9.4 mg/dL 8.6-10.6 1555151751) T PROTEIN (test code = 7.0 g/dL 6.3-8.2 7953816124) ALBUMIN (test code = 4.1 g/dL 3.5-5.0 5737120928) ALK PHOS (test code = 70 U/L 34-122 7395709169) ALTv (test code = 16 U/L 5-35 1742-6) AST(SGOT) (test code = 22 U/L 13-40 6872300307) eGFR (test code = mL/min/1.73m2 0538594271) ALYSSA (test code = ALYSSA) Association of Glomerular Filtration Rate (GFR) and Staging of Kidney Disease* + --+ --+ ------+| GFR (mL/min/1.73 m2) ?| With Kidney Damage ?| ?Without Kidney Damage+ --------+ --------+ +| ?>90 ?| ?Stage one ?| ? Normal ?+ ---+ ---+ -------+| ?60-89 ?| ?Stage two ?| ? Decreased GFR ? + --+ --+ ------+| ?30-59 ?| ?Stage three ?| ? Stage three ? + --+ --+ ------+| ?15-29 ?| ?Stage four ? | ? Stage four ?+ ---+ ---+ -------+| ?<15 (or dialysis) ? ?| ?Stage five ? | ? Stage five ?+ ---+ ---+ -------+ *Each stage assumes the associated GFR level has been in effect for at least three months. ?Stages 1 to 5, with or without kidney disease, indicate chronic kidney disease. Notes: Determination of stages one and two (with eGFR >59mL/min/1.73 m2) requires estimation of kidney damage for at least three months as defined by structural or functional abnormalities of the kidney, manifested by either:Pathological abnormalities or Markers of kidney damage (including abnormalities in the composition of the blood or urine or abnormalities in imaging tests). Lab Interpretation Abnormal (test code = 87530-3) [facility]. METABOLIC PANEL ([id number])2021-11-06 08:37:30 Test Item Value Reference Range Interpretation Comments NA (test code = 138 mmol/L 135-145 8923448516) K (test code = 3.7 mmol/L 3.5-5.0 7564561607) CL (test code = 104 mmol/L 98-108 1798445302) CO2 TOTAL (test code = 26 mmol/L 23-31 1798105995) AGAP (test code = 2-16 8829812903) BUN (test code = 16 mg/dL 7-23 0222632112) GLUCOSE (test code = 133 mg/dL 70-110 H 7255135121) CREATININE (test code = 0.99 mg/dL 0.50-1.04 9229444418) TOTAL BILI (test code = 0.4 mg/dL 0.1-1.7 7315567083) CALCIUM (test code = 9.4 mg/dL 8.6-10.6 3574016551) T PROTEIN (test code = 7.0 g/dL 6.3-8.2 1277477149) ALBUMIN (test code = 4.1 g/dL 3.5-5.0 5521999366) ALK PHOS (test code = 70 U/L 34-122 6016534192) ALTv (test code = 16 U/L 5-35 1742-6) AST(SGOT) (test code = 22 U/L 13-40 8656706101) eGFR (test code = mL/min/1.73m2 4045879051) ALYSSA (test code = ALYSSA) Association of Glomerular Filtration Rate (GFR) and Staging of Kidney Disease* + --+ --+ ------+| GFR (mL/min/1.73 m2) ?| With Kidney Damage ?| ?Without Kidney Damage+ --------+ --------+ +| ?>90 ?| ?Stage one ?| ? Normal ?+ ---+ ---+ -------+| ?60-89 ?| ?Stage two ?| ? Decreased GFR ? + --+ --+ ------+| ?30-59 ?| ?Stage three ?| ? Stage three ? + --+ --+ ------+| ?15-29 ?| ?Stage four ? | ? Stage four ?+ ---+ ---+ -------+| ?<15 (or dialysis) ? ?| ?Stage five ? | ? Stage five ?+ ---+ ---+ -------+ *Each stage assumes the associated GFR level has been in effect for at least three months. ?Stages 1 to 5, with or without kidney disease, indicate chronic kidney disease. Notes: Determination of stages one and two (with eGFR >59mL/min/1.73 m2) requires estimation of kidney damage for at least three months as defined by structural or functional abnormalities of the kidney, manifested by either:Pathological abnormalities or Markers of kidney damage (including abnormalities in the composition of the blood or urine or abnormalities in imaging tests). Lab Interpretation Abnormal (test code = 35058-0) [facility] METABOLIC PANEL ([id number])2021-11-06 08:37:30 Test Item Value Reference Range Interpretation Comments NA (test code = 138 mmol/L 135-145 9063345463) K (test code = 3.7 mmol/L 3.5-5.0 9481313444) CL (test code = 104 mmol/L 98-108 3276185489) CO2 TOTAL (test code = 26 mmol/L 23-31 1016008399) AGAP (test code = 2-16 1446975184) BUN (test code = 16 mg/dL 7-23 0000632708) GLUCOSE (test code = 133 mg/dL 70-110 H 0020661240) CREATININE (test code = 0.99 mg/dL 0.50-1.04 9927140252) TOTAL BILI (test code = 0.4 mg/dL 0.1-1.7 5032280075) CALCIUM (test code = 9.4 mg/dL 8.6-10.6 8704840399) T PROTEIN (test code = 7.0 g/dL 6.3-8.2 3477009322) ALBUMIN (test code = 4.1 g/dL 3.5-5.0 7293413805) ALK PHOS (test code = 70 U/L 34-122 0136255251) ALTv (test code = 16 U/L 5-35 1742-6) AST(SGOT) (test code = 22 U/L 13-40 7160101915) eGFR (test code = mL/min/1.73m2 2075698592) ALYSSA (test code = ALYSSA) Association of Glomerular Filtration Rate (GFR) and Staging of Kidney Disease* + --+ --+ ------+| GFR (mL/min/1.73 m2) ?| With Kidney Damage ?| ?Without Kidney Damage+ --------+ --------+ +| ?>90 ?| ?Stage one ?| ? Normal ?+ ---+ ---+ -------+| ?60-89 ?| ?Stage two ?| ? Decreased GFR ? + --+ --+ ------+| ?30-59 ?| ?Stage three ?| ? Stage three ? + --+ --+ ------+| ?15-29 ?| ?Stage four ? | ? Stage four ?+ ---+ ---+ -------+| ?<15 (or dialysis) ? ?| ?Stage five ? | ? Stage five ?+ ---+ ---+ -------+ *Each stage assumes the associated GFR level has been in effect for at least three months. ?Stages 1 to 5, with or without kidney disease, indicate chronic kidney disease. Notes: Determination of stages one and two (with eGFR >59mL/min/1.73 m2) requires estimation of kidney damage for at least three months as defined by structural or functional abnormalities of the kidney, manifested by either:Pathological abnormalities or Markers of kidney damage (including abnormalities in the composition of the blood or urine or abnormalities in imaging tests). Lab Interpretation Abnormal (test code = 14023-5) [facility] METABOLIC PANEL ([id number])2021-11-06 08:37:30 Test Item Value Reference Range Interpretation Comments NA (test code = 138 mmol/L 135-145 6928374063) K (test code = 3.7 mmol/L 3.5-5.0 4224397369) CL (test code = 104 mmol/L 98-108 2962793018) CO2 TOTAL (test code = 26 mmol/L 23-31 8477226414) AGAP (test code = 2-16 7709354046) BUN (test code = 16 mg/dL 7-23 3345842042) GLUCOSE (test code = 133 mg/dL 70-110 H 4026958354) CREATININE (test code = 0.99 mg/dL 0.50-1.04 2889100204) TOTAL BILI (test code = 0.4 mg/dL 0.1-1.8 7002156117) CALCIUM (test code = 9.4 mg/dL 8.6-10.6 8776563511) T PROTEIN (test code = 7.0 g/dL 6.3-8.2 0333246782) ALBUMIN (test code = 4.1 g/dL 3.5-5.0 7141335268) ALK PHOS (test code = 70 U/L 34-122 5799661692) ALTv (test code = 16 U/L 5-35 2-6) AST(SGOT) (test code = 22 U/L 13-40 4952521268) eGFR (test code = mL/min/1.73m2 2797504996) ALYSSA (test code = ALYSSA) Association of Glomerular Filtration Rate (GFR) and Staging of Kidney Disease* + --+ --+ ------+| GFR (mL/min/1.73 m2) ?| With Kidney Damage ?| ?Without Kidney Damage+ --------+ --------+ +| ?>90 ?| ?Stage one ?| ? Normal ?+ ---+ ---+ -------+| ?60-89 ?| ?Stage two ?| ? Decreased GFR ? + --+ --+ ------+| ?30-59 ?| ?Stage three ?| ? Stage three ? + --+ --+ ------+| ?15-29 ?| ?Stage four ? | ? Stage four ?+ ---+ ---+ -------+| ?<15 (or dialysis) ? ?| ?Stage five ? | ? Stage five ?+ ---+ ---+ -------+ *Each stage assumes the associated GFR level has been in effect for at least three months. ?Stages 1 to 5, with or without kidney disease, indicate chronic kidney disease. Notes: Determination of stages one and two (with eGFR >59mL/min/1.73 m2) requires estimation of kidney damage for at least three months as defined by structural or functional abnormalities of the kidney, manifested by either:Pathological abnormalities or Markers of kidney damage (including abnormalities in the composition of the blood or urine or abnormalities in imaging tests). Lab Interpretation Abnormal (test code = 33982-8) [facility] WITHOUT [id number] 08:16:28 Test Item Value Reference Range Interpretation Comments WBC (test code = 6690-2) See_Comment [A utomated message] The system [employer] generated this result transmit derian reference range : 4.30 - 11.10 10*3/?L. The reference range was not used to interpret this result as normal/abnormal . RBC (test code = 789-8) See_Comment L [Au tomated message] The system [employer] generated this result transmit derian reference range : 3.93 - 5.25 10* 6/?L. The reference r jordyn was not used to interpret this result as normal/abnormal . HGB (test code = 718-7) 9.6 g/dL 11.6-15.0 L HCT (test code = 4544-3) 31.4 % 35.7-45.2 L MCH (test code = 785-6) 28.0 pg 25.9-32.8 MCV (test code = 787-2) 91.5 fL 80.6-95.5 MCHC (test code = 786-4) 30.6 g/dL 31.6-35.1 L PLT (test code = 777-3) See_Comment [Au tomated message] The system [employer] generated this result transmit derian reference range : 166 - 358 10*3/?L. The reference range was not used to interpret this result as normal/abnormal . MPV (test code = 9.4 fL 9.5-12.9 L 50263-8) RDW-CV (test code = 12.9 % 12.0-15.5 788-0) RDW-SD (test code = 43.1 fL 39.0-49.9 97844-1) NRBC x10^3 (test code = <0.01 See_Comment [Au tomated message] 5928936806) The system [employer] generated this result transmit derian reference range : 10*3/?L. The reference range was not used to interpret this result as normal/abnormal . NRBC/100 WBC (test code See_Comment [Au tomated message] = 6078254734) The system [facility] generated this result transmit derian reference range : 0.0 - 10.0 /100 WBC s. The reference r jordyn was not used to interpret this result as normal/abnormal . IPF % (test code = 2923160525) Lab Interpretation (test Abnormal code = 49661-3) [facility] WITHOUT [id number] 08:16:28 Test Item Value Reference Range Interpretation Comments WBC (test code = 6690-2) See_Comment [A utomated message] The system [employer] generated this result transmit derian reference range : 4.30 - 11.10 10*3/?L. The reference range was not used to interpret this result as normal/abnormal . RBC (test code = 789-8) See_Comment L [Au tomated message] The system [employer] generated this result transmit derian reference range : 3.93 - 5.25 10* 6/?L. The reference r jordyn was not used to interpret this result as normal/abnormal . HGB (test code = 718-7) 9.6 g/dL 11.6-15.0 L HCT (test code = 4544-3) 31.4 % 35.7-45.2 L MCH (test code = 785-6) 28.0 pg 25.9-32.8 MCV (test code = 787-2) 91.5 fL 80.6-95.5 MCHC (test code = 786-4) 30.6 g/dL 31.6-35.1 L PLT (test code = 777-3) See_Comment [Au tomated message] The system [employer] generated this result transmit derian reference range : 166 - 358 10*3/?L. The reference range was not used to interpret this result as normal/abnormal . MPV (test code = 9.4 fL 9.5-12.9 L 44609-9) RDW-CV (test code = 12.9 % 12.0-15.5 788-0) RDW-SD (test code = 43.1 fL 39.0-49.9 47506-0) NRBC x10^3 (test code = <0.01 See_Comment [Au tomated message] [id number]) The system [employer] generated this result transmit derian reference range : 10*3/?L. The reference range was not used to interpret this result as normal/abnormal . NRBC/100 WBC (test code See_Comment [Au tomated message] = [id number]) The system [facility] generated this result transmit derian reference range : 0.0 - 10.0 /100 WBC s. The reference r jordyn was not used to interpret this result as normal/abnormal . IPF % (test code = 1418364733) Lab Interpretation (test Abnormal code = 34283-9) [facility] WITHOUT [id number] 08:16:28 Test Item Value Reference Range Interpretation Comments WBC (test code = 6690-2) See_Comment [A utomated message] The system [employer] generated this result transmit derian reference range : 4.30 - 11.10 10*3/?L. The reference range was not used to interpret this result as normal/abnormal . RBC (test code = 789-8) See_Comment L [Au tomated message] The system [employer] generated this result transmit derian reference range : 3.93 - 5.25 10* 6/?L. The reference r jordyn was not used to interpret this result as normal/abnormal . HGB (test code = 718-7) 9.6 g/dL 11.6-15.0 L HCT (test code = 4544-3) 31.4 % 35.7-45.2 L MCH (test code = 785-6) 28.0 pg 25.9-32.8 MCV (test code = 787-2) 91.5 fL 80.6-95.5 MCHC (test code = 786-4) 30.6 g/dL 31.6-35.1 L PLT (test code = 777-3) See_Comment [Au tomated message] The system [employer] generated this result transmit derian reference range : 166 - 358 10*3/?L. The reference range was not used to interpret this result as normal/abnormal . MPV (test code = 9.4 fL 9.5-12.9 L 61378-6) RDW-CV (test code = 12.9 % 12.0-15.5 788-0) RDW-SD (test code = 43.1 fL 39.0-49.9 60539-0) NRBC x10^3 (test code = <0.01 See_Comment [Au tomated message] [id number]) The system [employer] generated this result transmit derian reference range : 10*3/?L. The reference range was not used to interpret this result as normal/abnormal . NRBC/100 WBC (test code See_Comment [Au tomated message] = [id number]) The system [employer] ch generated this result transmit derian reference range : 0.0 - 10.0 /100 WBC s. The reference r jordyn was not used to interpret this result as normal/abnormal . IPF % (test code = 9488937001) Lab Interpretation (test Abnormal code = 99586-8) [facility] [id number] 17:13:48[facility], Radiant Results Inft User - 12/31/2020 12:14 PM CDTHISTORY: Pain.FINDINGS: AP view of the pelvis showed no acute fracture or dislocation. Noaggressive bone lesions. No signs of AVN in the femoral heads. Nosignificant changes of arthritis and hip joints or in the sacroiliacjoints.Minimal deformity in the superolateral surface of the neck of the right andleft femur is questionable sign for mild femoral acetabular impingement.CONCLUSIONS: No acute fracture or dislocation in AP view of the pelvis.[facility] H[facility] 2 VW [id number] 17:13:04[facility], Radiant Results Inft User - 12/31/2020 12:14 PM CDTHISTORY: Pain.FINDINGS: AP and lateral views of right hip are obtained and compared with03/25/2019 study. No acute fracture or dislocation detected. No aggressivebone lesions or any signs of AVN in the femoral head. No significantchanges of arthritis detected. Minimal deformity in the upper lateralsurface of the neck of the femur could be an indirect sign of mild femoralacetabular impingement.CONCLUSIONS: No acute fracture or dislocation in right hip.[facility]"
[2021-12-25 14:37] LABS: Absolute Lymphocytes (CBC) 1.1 K/uL (0.7-4.9); Hematocrit 24.4 % (36.0-45.0); Lymphocytes % 26.3 % (15.3-44.8); MPV 7.3 fL (7.6-11.3); RBC Red Blood Cell Count 2.93 M/uL (3.86-4.86)
[2021-12-25 14:57] LABS: Albumin 3.4 g/dL (3.4-5.0); Bilirubin Total 0.6 mg/dL (0.2-1.0); Potassium 3.9 mmol/L (3.5-5.1)
--- NOTE | 2021-12-25 15:21 | RAD REPORT ---
EXAM DESCRIPTION: CT - Abdomen Pelvis W Contrast - 12/25/2021 2:37 pm CLINICAL HISTORY: Abdominal pain, acute, nonlocalized, patient history of rectal bleeding COMPARISON: <Comparisons> TECHNIQUE: Biphasic, helical CT imaging of the abdomen and pelvis was performed following 100 ml non -ionic IV contrast. No oral contrast administered. All CT scans are performed using dose optimization technique as appropriate and may include automated exposure control or mA/KV adjustment according to patient size. FINDINGS: A few small less than 5 millimeter size pulmonary nodules are present in the lower lung fi elds. No specific follow-up recommendation for nodules this size. Lung hills are not fully assessed. No pleural effusion. The liver, spleen, and pancreas show no suspicious findings. Liver attenuation indicates a mild fatty infiltration. Gallbladder and biliary tree are also without suspicious finding. Symmetric renal function is seen with no hydronephrosis or suspicious renal mass. No pyelonephritis o r acute parenchymal process. No bladder abnormalities. No adrenal abnormalities. No ovarian or adnexa l acute finding. Uterus has exophytic partially calcified fibroids up to 3.4 cm in size. Phleboliths are seen along the pelvic floor. No stomach or small bowel acute finding. The appendix is normal. Patient has a pronounced glez diverti culosis pattern extending from cecum through the proximal sigmoid colon. No gross evidence for a colo n mass though this degree of diverticulosis decreases sensitivity substantially. Mucosal level inflam matory bowel changes can be present an occult on CT imaging. No free air, free fluid or inflammatory stranding. No hernia, mass or bulky lymphadenopathy. No suspicious bony findings. IMPRESSION: Contrast enhanced CT abdomen and pelvis showing no acute or emergent finding. Patient has a very pronounced glez diverticulosis pattern without diverticulitis confirmed. No gross e vidence for a colon mass though sensitivity is decreased. No acute or [employer] process seen. Mild fatty infiltration of the liver.
[2021-12-25] MEDS ORDERED: NA CHLORIDE 0.9% 250 ML ONE (16:38)
[2021-12-25] MEDS ORDERED: PANTOPRAZOLE 40 MG INJ ONE (16:38)
[2021-12-25 17:05] LABS: Hematocrit 21.9 % (36.0-45.0)
--- NOTE | 2021-12-25 17:52 | EDPHYS ---
Physician Documentation [facility] Name: Nicky Summers Age: 61 yrs Sex: Female : 1960 Arrival Date: 12/25/2021 Time: 13:25 Bed 18 Private MD: ED Physician Kenji Haider HPI: 12/25 16:23 This 61 yrs old Black Female presents to ER via Ambulatory with complaints of Bloody kdr Stools. 16:23 The patient presents to the emergency department with rectal bleeding, a moderate kdr amount, dark red blood with bowel movement melena. Onset: The symptoms/episode began/occurred last night. Abdominal pain: none is appreciated. Modifying factors: The symptoms are alleviated by nothing, the symptoms are aggravated by nothing. Associated signs and symptoms: The patient has no apparent associated signs or symptoms. Severity of symptoms: At their worst the symptoms were mild in the emergency department the symptoms are unchanged. The patient has experienced similar episodes in the past, a few times. Patient states she has had bloody stools since last night. She has had 2 or 3 stools. They are dark red stools. He was recently admitted to [facility] for similar problems. Came here today because this is closer to her home.. Historical: - Allergies: 13:36 No Known Allergies; ab2 - PMHx: 13:36 Diverticulitis; ab2 - PSHx: 13:36 None; ab2 - Immunization history:: Adult Immunizations up to date. - Social history:: Smoking status: Patient denies any tobacco usage or history of. ROS: 16:23 Constitutional: Negative for fever, chills, and weight loss, Eyes: Negative for injury, kdr pain, redness, and discharge, ENT: Negative for injury, pain, and discharge, Neck: Negative for injury, pain, and swelling, Cardiovascular: Negative for chest pain, palpitations, and edema, Respiratory: Negative for shortness of breath, cough, wheezing, and pleuritic chest pain, Back: Negative for injury and pain, : Negative for injury, bleeding, discharge, and swelling, MS/Extremity: Negative for injury and deformity, Skin: Negative for injury, rash, and discoloration, Neuro: Negative for headache, weakness, numbness, tingling, and seizure activity. Psych: Negative for depression, anxiety, suicide ideation, homicidal ideation, and hallucinations, Allergy/Immunology: Negative for hives, rash, and allergies, Endocrine: Negative for neck swelling, polydipsia, polyuria, polyphagia, and marked weight changes, Hematologic/Lymphatic: Negative for swollen nodes, abnormal bleeding, and unusual bruising. 16:23 Abdomen/GI: Positive for abdominal pain, nausea, diarrhea, rectal bleeding. Exam: 16:23 Constitutional: This is a well developed, well nourished patient who is awake, alert, kdr and in no acute distress. Head/Face: Normocephalic, atraumatic. Eyes: Pupils equal round and reactive to light, extra-ocular motions intact. Lids and lashes normal. Conjunctiva and sclera are non-icteric and not injected. Cornea within normal limits. Periorbital areas with no swelling, redness, or edema. Neck: Trachea midline, no thyromegaly or masses palpated, and no cervical lymphadenopathy. Supple, full range of motion without nuchal rigidity, or vertebral point tenderness. No Meningismus. Chest/axilla: Normal chest wall appearance and motion. Nontender with no deformity. No lesions are appreciated. Cardiovascular: Regular rate and rhythm with a normal S1 and S2. No gallops, murmurs, or rubs. Normal PMI, no JVD. No pulse deficits. Respiratory: Lungs have equal breath sounds bilaterally, clear to auscultation and percussion. No rales, rhonchi or wheezes noted. No increased work of breathing, no retractions or nasal flaring. Back: No spinal tenderness. No costovertebral tenderness. Full range of motion. Skin: Warm, dry with normal turgor. Normal color with no rashes, no lesions, and no evidence of cellulitis. MS/ Extremity: Pulses equal, no cyanosis. Neurovascular intact. Full, normal range of motion. Neuro: Awake and alert, GCS 15, oriented to person, place, time, and situation. Cranial nerves II-XII grossly intact. Motor strength 5/5 in all extremities. Sensory grossly intact. Cerebellar exam normal. Normal gait. Psych: Awake, alert, with orientation to person, place and time. Behavior, mood, and affect are within normal limits. 16:23 Abdomen/GI: Inspection: abdomen appears normal, Bowel sounds: active, all quadrants, diminished, Palpation: soft, nontender, in all quadrants, Rectal exam: rectal tone normal, Stool: guaiac positive, black, hemorrhoid(s), external, with pain, with thrombosis. Vital Signs: 13:35 BP 121 / 77; Pulse 95; Resp 17; Temp 97.4; Pulse Ox 99% ; Weight 68.04 kg; Height 5 ft. ab2 5 in. (165.10 cm); Pain 0/10; 16:08 BP 103 / 52; Pulse 79; Resp 17; Pulse Ox 95% on R/A; davis 19:22 BP 105 / 51; Pulse 84; Resp 16; Temp 97.5; Pulse Ox 100% on R/A; Pain 0/10; jillian 13:35 Body Mass Index 24.96 (68.04 kg, 165.10 cm) ab2 MDM: 16:23 Data reviewed: vital signs, nurses notes, lab test result(s), radiologic studies. kdr Counseling: I had a detailed discussion with the patient and/or guardian regarding: the historical points, exam findings, and any diagnostic results supporting the discharge/admit diagnosis, lab results, radiology results, the need to transfer to another facility. 17:51 Patient medically screened. kdr 12/25 13:54 Order name: CBC with Diff; Complete Time: 15:51 kdr 12/25 13:54 Order name: CMP; Complete Time: 15:51 kdr 12/25 13:54 Order name: Lipase; Complete Time: 15:51 kdr 12/25 13:54 Order name: Type And Screen; Complete Time: 15:51 kdr 12/25 15:49 Order name: ABO/RH no charge; Complete Time: 15:51 EDMS 12/25 15:55 Order name: Hemoglobin; Complete Time: 17:38 kdr 12/25 13:54 Order name: CT Abd/Pelvis - IV Contrast Only kdr 12/25 13:54 Order name: IV Saline Lock; Complete Time: 14:13 kdr 12/25 13:58 Order name: Abdomen ; Complete Time: 15:51 EDMS 12/25 15:55 Order name: Hematocrit; Complete Time: 17:38 kdr 12/25 16:38 Order name: SARS-COV-2 RT PCR (Document "Date of Onset" if Symptomatic); Complete Time: eb 18:29 12/25 13:54 Order name: Labs collected and sent; Complete Time: 14:13 kdr Administered Medications: 16:47 Drug: ProTONIX (pantoprazole) 40 mg Route: IVP; Site: left antecubital; davis 16:47 Drug: ProTONIX (pantoprazole) 8 mg/hr Route: IV; Rate: 25 ml/hr; Site: left antecubital;davis Disposition Summary: 12/25/21 17:51 Transfer Ordered Transfer Location: [facility] kdr Reason: Higher level of care kdr Condition: Serious kdr Problem: an acute exacerbation kdr Symptoms: are unchanged kdr Accepting Physician: [facility] Caitlin Young(12/25/21 20:17) jillian Diagnosis - Upper GI Bleed, Anemia kdr Forms: - Medication Reconciliation Form kdr - SBAR form kdr Signatures: Dispatcher [employer] EDKenji Jade MD MD kdr Kell Sneed, RN Nancy Mulligan RN RN Jayme Hale Corrections: (The following items were deleted from the chart) 18:42 17:51 [facility] kdr kdr 20:17 18:42 [facility] Caitlin Young kdr jillian
--- NOTE | 2021-12-25 17:52 | ER ---
Nurse's Notes [facility] Name: Nicky Summers Age: 61 yrs Sex: Female : 1960 Arrival Date: 12/25/2021 Time: 13:25 Bed 18 Private MD: Diagnosis: Upper GI Bleed, Anemia Presentation: 12/25 13:35 Chief complaint: Patient states: "I've been having blood in my stool since last night." ab2 Pt denies any pain. Pt denies n/v/d. Coronavirus screen: Vaccine status: Patient reports receiving the 2nd dose of the covid vaccine. Client denies travel out of the [place] in the last 14 days. At this time, the client does not indicate any symptoms associated with coronavirus-19. Ebola Screen: Patient negative for fever greater than or equal to 101.5 degrees Fahrenheit, and additional compatible Ebola Virus Disease symptoms Patient denies exposure to infectious person. Patient denies travel to an Ebola-affected area in the 21 days before illness onset. No symptoms or risks identified at this time. Initial Sepsis Screen: Does the patient meet any 2 criteria? No. Patient's initial sepsis screen is negative. Does the patient have a suspected source of infection? No. Patient's initial sepsis screen is negative. Risk Assessment: Do you want to hurt yourself or someone else? Patient reports no desire to harm self or others. Onset of symptoms is unknown. 13:35 Method Of Arrival: Ambulatory ab2 13:35 Acuity: LUDWIN 3 ab2 Triage Assessment: 13:36 General: Appears in no apparent distress. uncomfortable, Behavior is calm, cooperative, ab2 appropriate for age. Pain: Denies pain. Neuro: Level of Consciousness is awake, alert, obeys commands, Oriented to person, place, time, situation, Appropriate for age Logistics Engineer are equal bilaterally Moves all extremities. Cardiovascular: No deficits noted. Denies chest pain, shortness of breath, Patient's skin is warm and dry. Respiratory: No deficits noted. Airway is patent Respiratory effort is even, unlabored, Respiratory pattern is regular, symmetrical. GI: Reports rectal bleeding, bloody stool, Patient currently denies abdominal pain, diarrhea, nausea, vomiting. Derm: Skin is intact. Historical: - Allergies: 13:36 No Known Allergies; ab2 - PMHx: 13:36 Diverticulitis; ab2 - PSHx: 13:36 None; ab2 - Immunization history:: Adult Immunizations up to date. - Social history:: Smoking status: Patient denies any tobacco usage or history of. Screenin:56 Abuse screen: Denies threats or abuse. Denies injuries from another. Nutritional davis screening: No deficits noted. Tuberculosis screening: No symptoms or risk factors identified. Fall Risk None identified. Assessment: 13:56 General: Appears in no apparent distress. Behavior is calm, cooperative. Pain: Denies davis pain. GI: Reports bloody stool. 19:16 Reassessment: The pt signed the MOT and I have called [phone], to give report. jillian Report given to David. Per the desk, the EMS will be here in 30 minutes. 19:31 Reassessment: Patient appears in no apparent distress at this time. The Protonix is jillian infusing at 8ml/H to the Lt AC. The pt is visiting with her daughter on the phone and was given the information about her room assignment at [facility]. The pt shared this info with her daughter. Awaiting EMS. Vital Signs: 13:35 BP 121 / 77; Pulse 95; Resp 17; Temp 97.4; Pulse Ox 99% ; Weight 68.04 kg; Height 5 ft. ab2 5 in. (165.10 cm); Pain 0/10; 16:08 BP 103 / 52; Pulse 79; Resp 17; Pulse Ox 95% on R/A; davis 19:22 BP 105 / 51; Pulse 84; Resp 16; Temp 97.5; Pulse Ox 100% on R/A; Pain 0/10; jillian 13:35 Body Mass Index 24.96 (68.04 kg, 165.10 cm) ab2 ED Course: 13:25 Patient arrived in ED. am2 13:27 Kenji Haider MD is Attending Physician. kdr 13:36 Triage completed. ab2 13:37 Arm band placed on right wrist. ab2 13:56 Nancy Carbajal, MARLI is Primary Nurse. davis 13:56 Patient has correct armband on for positive identification. Bed in low position. davis 13:56 No provider procedures requiring assistance completed. davis 14:12 Inserted saline lock: 20 gauge in left antecubital area, using aseptic technique. Blood mb7 collected. 14:13 Call light in reach. Side rails up X 1. Placed in gown. Door closed. Noise minimized. mb7 Warm blanket given. 14:13 CBC with Diff Sent. mb7 14:13 Type And Screen Sent. mb7 14:13 CMP Sent. mb7 14:13 Lipase Sent. mb7 14:38 Abdomen In Process Unspecified. EDMS 19:38 IV is patent, is intact, with fluids infusing freely, with good blood return, jillian 20:07 Primary Nurse role handed off by Nancy Carbajal, MARLI cs9 20:17 Kell Sneed, RN is Primary Nurse. jillian Administered Medications: 16:47 Drug: ProTONIX (pantoprazole) 40 mg Route: IVP; Site: left antecubital; davis 16:47 Drug: ProTONIX (pantoprazole) 8 mg/hr Route: IV; Rate: 25 ml/hr; Site: left antecubital;davis Outcome: 17:51 ER care complete, transfer ordered by . kdr 19:37 Condition: stable jillian 19:38 Transferred by ground EMS to [facility], Note: Barton jillian 20:17 Patient left the ED. jillian Signatures: Dispatcher [employer] EDMS Kenji Haider MD MD kdr Moreno, Amanda am2 Stanford, Christine csMarilyn Ward mbKell Ferreira, Nancy Mulligan RN, RN RN ha Bleininger, Alexis ab2
[2021-12-25 20:26] VITALS: BP 105/51; TEMP 97.5; O2SAT 100
== END 2021-12-25 20:17 | disposition short-term general hospital (02) ==
LOC: ER 13:24
DX: D64.9 Anemia, unspecified (principal); Z20.822 Contact with and (suspected) exposure to COVID-19
CPT/HCPCS: 85025; 36415; 86900; 86850; 82565; 86901; 85018; 85014; 83690; 80053; 74177; 96374; 99285; U0003; C9113; J7050